=== PATIENT | female | born 1935 | race Caucasian/White ===

== ENCOUNTER → 2016-11-17 | Outpatient (CLI) | payer MEDICARE, OTHER ==
[2016-11-17 16:36] LABS: HEMATOCRIT 33.7 % (36.0-47.0); HEMOGLOBIN 10.9 g/dL (12.0-15.5); MEAN CORPUSCULAR HEMOGLOBIN 30.6 pg (27.0-33.4); MEAN CORPUSCULAR HGB CONC 32.4 g/dL (32.0-36.0); MEAN CORPUSCULAR VOLUME 94 fl (80-97); RED BLOOD COUNT 3.57 10^6/uL (3.72-5.28); RED CELL DISTRIBUTION WIDTH 18.8 % (11.5-14.0)
[2016-11-17 16:45] LABS: APPEARANCE,URINE CLEAR; BILIRUBIN,URINE NEGATIVE (NEGATIVE); GLUCOSE, URINE NEGATIVE (NEGATIVE); KETONES,URINE NEGATIVE (NEGATIVE); LEUKOCYTE ESTERASE,URINE SMALL (NEGATIVE); NITRITE,URINE NEGATIVE (NEGATIVE); PROTEIN,URINE NEGATIVE (NEGATIVE); URINE SPECIFIC GRAVITY 1.008; UROBILINOGEN,URINE NEGATIVE mg/dL (<2.0)
[2016-11-17 17:02] LABS: ALANINE AMINOTRANSFERASE 25 U/L (9-52); ALBUMIN 3.6 g/dL (3.5-5.0); ALKALINE PHOSPHATASE 118 U/L (38-126); ANION GAP 12 (5-19); ASPARTATE AMINO TRANSFERASE 22 U/L (14-36); BILIRUBIN,DIRECT 0.3 mg/dL (0.0-0.4); BILIRUBIN,TOTAL 0.3 mg/dL (0.2-1.3); BLOOD UREA NITROGEN 17 mg/dL (7-20); CALCIUM 9.9 mg/dL (8.4-10.2); CARBON DIOXIDE 19 mmol/L (22-30); CHLORIDE 108 mmol/L (98-107); CREATININE RESULT 1.81 mg/dL (0.52-1.25); GLUCOSE 127 mg/dL (75-110); POTASSIUM 4.5 mmol/L (3.6-5.0); SODIUM 138.9 mmol/L (137-145); TOTAL PROTEIN 7.2 g/dL (6.3-8.2)
== END ==
LOC: OD 14:52
PROVIDERS: ATTEND Internal Medicine Nephrology
DX: I12.9 Hypertensive chronic kidney disease with stage 1 through stage 4 chronic kidney disease, or unspecified chronic kidney disease (principal); N18.3 Chronic kidney disease, stage 3 (moderate); D64.9 Anemia, unspecified; R80.9 Proteinuria, unspecified
CPT/HCPCS: 36415; 80053; 81001; 85027

== ENCOUNTER → 2017-01-26 | Outpatient (CLI) | payer MEDICARE, OTHER ==
[2017-01-26 13:13] LABS: HEMATOCRIT 36.2 % (36.0-47.0); HEMOGLOBIN 11.8 g/dL (12.0-15.5); HGB HCT DIFFERENCE -0.8; MEAN CORPUSCULAR HEMOGLOBIN 30.8 pg (27.0-33.4); MEAN CORPUSCULAR HGB CONC 32.6 g/dL (32.0-36.0); MEAN CORPUSCULAR VOLUME 95 fl (80-97); RED BLOOD COUNT 3.82 10^6/uL (3.72-5.28); RED CELL DISTRIBUTION WIDTH 17.4 % (11.5-14.0); WHITE BLOOD COUNT 7.2 10^3/uL (4.0-10.5)
[2017-01-26 13:37] LABS: ANION GAP 12 (5-19); BLOOD UREA NITROGEN 23 mg/dL (7-20); CALCIUM 9.8 mg/dL (8.4-10.2); CARBON DIOXIDE 21 mmol/L (22-30); CHLORIDE 101 mmol/L (98-107); CREATININE RESULT 1.72 mg/dL (0.52-1.25); GLUCOSE 91 mg/dL (75-110); PHOSPHORUS 3.8 mg/dL (2.5-4.5); POTASSIUM 4.6 mmol/L (3.6-5.0)
== END ==
LOC: OD 11:59
PROVIDERS: ATTEND Internal Medicine Nephrology
DX: I12.9 Hypertensive chronic kidney disease with stage 1 through stage 4 chronic kidney disease, or unspecified chronic kidney disease (principal); N18.3 Chronic kidney disease, stage 3 (moderate); R80.9 Proteinuria, unspecified; D64.9 Anemia, unspecified
CPT/HCPCS: 36415; 80048; 83970; 84100; 85027

== ENCOUNTER → 2017-02-23 | Outpatient (CLI) | payer MEDICARE, OTHER ==
[2017-02-23 11:25] LABS: ANION GAP 9 (5-19); BLOOD UREA NITROGEN 14 mg/dL (7-20); CALCIUM 10.2 mg/dL (8.4-10.2); CARBON DIOXIDE 23 mmol/L (22-30); CHLORIDE 100 mmol/L (98-107); CREATININE RESULT 1.59 mg/dL (0.52-1.25); GLUCOSE 128 mg/dL (75-110); PHOSPHORUS 3.8 mg/dL (2.5-4.5); POTASSIUM 4.8 mmol/L (3.6-5.0); SODIUM 131.7 mmol/L (137-145)
[2017-02-24 11:23] LABS: HEMATOCRIT 32.5 % (36.0-47.0); HEMOGLOBIN 10.7 g/dL (12.0-15.5); HGB HCT DIFFERENCE -0.4; MEAN CORPUSCULAR HEMOGLOBIN 30.1 pg (27.0-33.4); RED BLOOD COUNT 3.56 10^6/uL (3.72-5.28); RED CELL DISTRIBUTION WIDTH 18.2 % (11.5-14.0); WHITE BLOOD COUNT 7.3 10^3/uL (4.0-10.5)
[2017-02-24 11:29] LABS: MEAN CORPUSCULAR VOLUME 91 fl (80-97)
== END ==
LOC: OD 09:54
PROVIDERS: ATTEND Internal Medicine Nephrology
DX: I12.9 Hypertensive chronic kidney disease with stage 1 through stage 4 chronic kidney disease, or unspecified chronic kidney disease (principal); N18.3 Chronic kidney disease, stage 3 (moderate); R80.9 Proteinuria, unspecified; E87.5 Hyperkalemia
CPT/HCPCS: 36415; 80048; 83970; 84100; 85027

== ENCOUNTER → 2017-03-02 | Outpatient (CLI) | payer MEDICARE, OTHER ==
[2017-03-02 16:08] LABS: ANION GAP 13 (5-19); BLOOD UREA NITROGEN 19 mg/dL (7-20); CALCIUM 11.2 mg/dL (8.4-10.2); CARBON DIOXIDE 22 mmol/L (22-30); CHLORIDE 100 mmol/L (98-107); CREATININE RESULT 1.97 mg/dL (0.52-1.25); GLUCOSE 97 mg/dL (75-110); SODIUM 134.8 mmol/L (137-145)
== END ==
LOC: OD 14:35
PROVIDERS: ATTEND Internal Medicine Nephrology
DX: E87.0 Hyperosmolality and hypernatremia (principal)
CPT/HCPCS: 36415; 80048

== ENCOUNTER → 2017-03-27 | Outpatient (CLI) | payer MEDICARE, OTHER ==
[2017-03-27 13:45] LABS: HEMATOCRIT 33.1 % (36.0-47.0); HGB HCT DIFFERENCE -0.1; MEAN CORPUSCULAR HEMOGLOBIN 30.5 pg (27.0-33.4); MEAN CORPUSCULAR HGB CONC 33.2 g/dL (32.0-36.0); MEAN CORPUSCULAR VOLUME 92 fl (80-97); RED CELL DISTRIBUTION WIDTH 19.3 % (11.5-14.0); WHITE BLOOD COUNT 8.2 10^3/uL (4.0-10.5)
[2017-03-27 14:16] LABS: ANION GAP 8 (5-19); BLOOD UREA NITROGEN 13 mg/dL (7-20); CALCIUM 10.2 mg/dL (8.4-10.2); CARBON DIOXIDE 25 mmol/L (22-30); CHLORIDE 107 mmol/L (98-107); CREATININE RESULT 1.71 mg/dL (0.52-1.25); GLUCOSE 97 mg/dL (75-110); PHOSPHORUS 3.8 mg/dL (2.5-4.5); POTASSIUM 4.7 mmol/L (3.6-5.0); SODIUM 139.7 mmol/L (137-145)
== END ==
LOC: OD 11:58
PROVIDERS: ATTEND Internal Medicine Nephrology
DX: N18.3 Chronic kidney disease, stage 3 (moderate) (principal); D64.9 Anemia, unspecified; E87.5 Hyperkalemia
CPT/HCPCS: 36415; 80048; 83970; 84100; 84443; 85027

== ENCOUNTER → 2017-07-03 | Outpatient (CLI) | payer MEDICARE, OTHER ==
[2017-07-03 13:15] LABS: HEMATOCRIT 35.3 % (36.0-47.0); HEMOGLOBIN 11.5 g/dL (12.0-15.5); MEAN CORPUSCULAR HEMOGLOBIN 30.6 pg (27.0-33.4); MEAN CORPUSCULAR HGB CONC 32.5 g/dL (32.0-36.0); MEAN CORPUSCULAR VOLUME 94 fl (80-97); PLATELET COUNT 255 10^3/uL (150-450); RED BLOOD COUNT 3.75 10^6/uL (3.72-5.28); RED CELL DISTRIBUTION WIDTH 15.8 % (11.5-14.0); WHITE BLOOD COUNT 7.8 10^3/uL (4.0-10.5)
[2017-07-03 13:40] LABS: ANION GAP 9 (5-19); BLOOD UREA NITROGEN 14 mg/dL (7-20); CALCIUM 10.7 mg/dL (8.4-10.2); CARBON DIOXIDE 23 mmol/L (22-30); CHLORIDE 108 mmol/L (98-107); GLUCOSE 86 mg/dL (75-110); PHOSPHORUS 3.7 mg/dL (2.5-4.5); POTASSIUM 4.8 mmol/L (3.6-5.0); SODIUM 140.2 mmol/L (137-145)
== END ==
LOC: OD 12:43
PROVIDERS: ATTEND Internal Medicine Nephrology
DX: I12.9 Hypertensive chronic kidney disease with stage 1 through stage 4 chronic kidney disease, or unspecified chronic kidney disease (principal); N18.3 Chronic kidney disease, stage 3 (moderate); D64.9 Anemia, unspecified; E87.5 Hyperkalemia
CPT/HCPCS: 36415; 80048; 83970; 84100; 85027

== ENCOUNTER 2017-08-30 12:07 | Emergency (ER) | payer MEDICARE, OTHER ==
[2017-08-30] MEDS ORDERED: NORMAL SALINE 1000 ML 1,000 ML IV ONE (12:22)
[2017-08-30] MEDS ORDERED: NORMAL SALINE 250 ML IV PRN ×3 (12:23→14:21)
[2017-08-30] MEDS ORDERED: OCTREOTIDE ACETATE INJ/PF 100 MCG/1 ML SDV IV ONE ×2 (12:23→16:15)
[2017-08-30] MEDS ORDERED: PANTOPRAZOLE SODIUM 40 MG VIAL IV ONE ×2 (12:23→16:15)
[2017-08-30] MEDS ORDERED: ONDANSETRON HCL INJ/PF 4 MG/2 ML SDV IV ONE (12:29)
[2017-08-30 12:42] LABS: ABSOLUTE LYMPHOCYTES (AUTO) 0.7 10^3/uL (0.5-4.7); ABSOLUTE NEUT (AUTO) 0.1 10^3/uL (1.7-8.2); EOSINOPHILS % (AUTO) 1.5 % (0-6); HEMATOCRIT 18.4 % (36.0-47.0); LYMPHOCYTES % (AUTO) 90.2 % (13-45); MEAN CORPUSCULAR HEMOGLOBIN 31.8 pg (27.0-33.4); MEAN CORPUSCULAR HGB CONC 33.6 g/dL (32.0-36.0); MEAN CORPUSCULAR VOLUME 95 fl (80-97); MONOCYTES % (AUTO) 0.2 % (3-13); RED BLOOD COUNT 1.95 10^6/uL (3.72-5.28); RED CELL DISTRIBUTION WIDTH 15.4 % (11.5-14.0); SEGMENTED NEUTROPHILS % (AUTO) 8.1 % (42-78); TOTAL CELLS COUNTED % (AUTO) 100 %
[2017-08-30 12:44] LABS: INTERNATIONAL RATION (INR) 1.17; PROTHROMBIN TIME 15.7 SEC (11.4-15.4)
[2017-08-30 12:45] LABS: PARTIAL THROMBOPLASTIN TIME 36.4 SEC (23.5-35.8)
[2017-08-30 12:50] LABS: HEMOGLOBIN 6.2 g/dL (12.0-15.5)
[2017-08-30] MEDS ORDERED: LIDOCAINE 2% INJ (20 MG/ML) 20 ML MDV INJ ONE (12:53)
[2017-08-30 12:56] LABS: ALANINE AMINOTRANSFERASE 68 U/L (9-52); ALBUMIN 2.6 g/dL (3.5-5.0); ALKALINE PHOSPHATASE 54 U/L (38-126); ANION GAP 15 (5-19); ASPARTATE AMINO TRANSFERASE 65 U/L (14-36); BILIRUBIN,DIRECT 0.1 mg/dL (0.0-0.4); BILIRUBIN,TOTAL 0.2 mg/dL (0.2-1.3); BLOOD UREA NITROGEN 50 mg/dL (7-20); CALCIUM 8.9 mg/dL (8.4-10.2); CARBON DIOXIDE 13 mmol/L (22-30); CHLORIDE 105 mmol/L (98-107); GLUCOSE 217 mg/dL (75-110); POTASSIUM 4.3 mmol/L (3.6-5.0); SODIUM 132.6 mmol/L (137-145); TOTAL PROTEIN 5.1 g/dL (6.3-8.2)
[2017-08-30 12:59] LABS: PLATELET COUNT < 3 10^3/uL (150-450)
--- NOTE | 2017-08-30 13:01 | RADIOLOGY REPORT (SQ) ---
EXAM DESCRIPTION: CHEST SINGLE VIEW COMPLETED DATE/TIME: 08/30/2017 12:49 pm REASON FOR STUDY: rectal bleeding, vomiting/coughing blood COMPARISON: 08/10/2014 EXAM PARAMETERS: NUMBER OF VIEWS: One view. TECHNIQUE: Single frontal radiographic view of the chest acquired. RADIATION DOSE: NA LIMITATIONS: None. FINDINGS: LUNGS AND PLEURA: Right middle lobe airspace disease. Lungs and pleural spaces otherwise grossly clear. MEDIASTINUM AND HILAR STRUCTURES: No masses. Contour normal. HEART AND VASCULAR STRUCTURES: Heart normal in size. Normal vasculature. BONES: No acute findings. HARDWARE: None in the chest. OTHER: No other significant finding. IMPRESSION: Right middle lobe airspace disease presumably representing pneumonia. Recommend followu p radiographs 4 to 6 weeks to ensure resolution. TECHNICAL DOCUMENTATION: JOB ID: [id number] [employer]- All Rights Reserved Reading location - IP/workstation name: [email or web address]
[2017-08-30 13:12] LABS: ANISOCYTOSIS SLIGHT; OVALOCYTES SLIGHT; PLATELET COMMENT DECREASED; POIKILOCYTOSIS SLIGHT
[2017-08-30 13:20] LABS: WHITE BLOOD COUNT 0.8 10^3/uL (4.0-10.5)
--- NOTE | 2017-08-30 13:50 | ER Document Report ---
ED GI Bleed / Rectal Pain - General Chief Complaint: Rectal Bleeding Stated Complaint: RECTAL BLEEDING Time Seen by Provider: 08/30/17 12:21 Mode of Arrival: Medic Information source: Patient Notes: Patient is an 82-year-old female who presented to the ER today for rectal bleeding, bright red/brown blood for 1 day. Patient started having dark blood come out of her mouth after coughing this morning. Patient has a history of a AAA and COPD, hypertension, open heart surgery in 2015. Most of patient's doctors are [facility], Including a vascular surgeon. Patient denies any abdominal pain. She states "I have had to have a blood transfusion in the past , but nobody could tell me why." TRAVEL OUTSIDE OF THE [place] IN LAST 30 DAYS: No - Related Data Allergies/Adverse Reactions: quinine [Quinine] Adverse Reaction (Verified 01/14/16 21:26) thyroid problems Past Medical History - General Information source: Patient - Social History Smoking Status: Unknown if Ever Smoked Family History: Reviewed & Not Pertinent - Past Medical History Cardiac Medical History: Reports: Hx Congestive Heart Failure - Diastolic dysfunction, Hx Coronary Artery Disease, Hx Heart Attack, Hx Hypercholesterolemia, Hx Hypertension Pulmonary Medical History: Reports: Hx COPD Neurological Medical History: Denies: Hx Seizures Renal/ Medical History: Reports: Hx Renal Insufficiency Malignancy Medical History: Reports: Hx Breast Cancer, Hx Cervical Cancer, Hx Colorectal Cancer Musculoskeltal Medical History: Reports Hx Arthritis - Rheumatoid arthritis Psychiatric Medical History: Denies: Hx Depression Past Surgical History: Reports: Hx Appendectomy, Hx Bowel Surgery - Hemicolectomy, Hx Breast Surgery, Hx Cholecystectomy, Hx Coronary Artery Bypass Graft - x3, Hx Hysterectomy, Hx Lumpectomy, Hx Open Heart Surgery - triple bypass - Immunizations Hx Diphtheria, Pertussis, Tetanus Vaccination: No Hx Pneumococcal Vaccination: 03/13/14 Review of Systems - Review of Systems Constitutional: No symptoms reported EENT: No symptoms reported Cardiovascular: See HPI Respiratory: See HPI Gastrointestinal: See HPI Genitourinary: No symptoms reported Female Genitourinary: No symptoms reported Musculoskeletal: No symptoms reported Skin: No symptoms reported Hematologic/Lymphatic: No symptoms reported Neurological/Psychological: No symptoms reported Physical Exam - Vital signs Vitals: Resp 22 H 08/30/17 12:19 - Notes Notes: PHYSICAL EXAMINATION: GENERAL: Pale, tired appearing, but alert and in no acute distress. HEAD: Atraumatic, normocephalic. EYES: Pupils equal round and reactive to light, extraocular movements intact, sclera anicteric, conjunctiva are normal. ENT: ear canals without erythema or foreign body, TMs pearly correa with good bony landmarks, nares patent, oropharynx clear without exudates. Moist mucous membranes. Dark, dried blood in and around mouth NECK: Normal range of motion, supple without lymphadenopathy LUNGS:rhonchi that clears with cough in lower lobes bilaterally HEART: Regular rate and rhythm without murmurs ABDOMEN: Soft, no tenderness. No guarding, no rebound BACK: no vertebral tenderness, normal ROM GI/: no CVA tenderness Rectal: bright red/some brown blood per rectum EXTREMITIES: Normal range of motion, no pitting edema. No cyanosis. NEUROLOGICAL: alert and oriented to person, place and time, Cranial nerves grossly intact. Normal sensory/motor exams. PSYCH: Normal mood, normal affect. SKIN: Warm, Dry, normal turgor, no rashes or lesions noted Course - Re-evaluation Re-evalutation: 08/30/17 14:53 Patient has hemoglobin of 6.2, white blood cell count of 0.8, platelet 2, hematocrit of 18.4, chest x-ray reveals a left lower lobe pneumonia. CAT scan reveals that her AAA has enlarged in size and has some stranding around it concerning for possible impending rupture. Patient has not no episodes of vomiting or coughing up blood here in the ER so far. Patient has gotten octreotide, Protonix, IV fluids, is getting blood currently, fresh frozen plasma and 1 unit of platelets that we have in the hospital. Dr. Soliman, and patient's vascular surgeon at [facility] called me at this time and states that he will be happy to consult, it does not sound like she has a ruptured AAA at this time, but likely head athletic trainer/strength coach needs to admit patient to [facility]. I am awaiting head athletic trainer/strength coach call. 08/30/17 15:15 Dr. Hester, head athletic trainer/strength coach at [facility] accepts transfer at this time. 08/30/17 15:20 08/30/17 16:34 Transport here to get patient, she has no complaints at this time, still tachycardic at 115 bpm, blood pressure 148/78. - Vital Signs Vital signs: Temp Pulse Resp BP Pulse Ox 101.6 F H 111 H 23 H 154/64 H 100 08/30/17 13:23 08/30/17 13:23 08/30/17 15:16 08/30/17 15:16 08/30/17 15:16 - Laboratory Result Diagrams: 08/30/17 12:27 08/30/17 12:27 Laboratory results interpreted by me: 08/30/17 08/30/17 08/30/17 12:27 12:27 12:27 WBC 0.8 L* RBC 1.95 L Hgb 6.2 L Hct 18.4 L RDW 15.4 H Plt Count < 3 L* Seg Neutrophils % 8.1 L Lymphocytes % 90.2 H Monocytes % 0.2 L Absolute Neutrophils 0.1 L Absolute Monocytes 0.0 L PT 15.7 H APTT 36.4 H Sodium 132.6 L Carbon Dioxide 13 L BUN 50 H Creatinine 2.01 H Est GFR ( Amer) 29 L Est GFR (Non-Af Amer) 24 L Glucose 217 H AST 65 H ALT 68 H Total Protein 5.1 L Albumin 2.6 L Crossmatch 08/30/17 12:27 WBC RBC Hgb Hct RDW Plt Count Seg Neutrophils % Lymphocytes % Monocytes % Absolute Neutrophils Absolute Monocytes PT APTT Sodium Carbon Dioxide BUN Creatinine Est GFR ( Amer) Est GFR (Non-Af Amer) Glucose AST ALT Total Protein Albumin Crossmatch See Detail Procedures - Central Line Left Femoral Time completed: 13:40 Consent obtained: Yes Central line pre-insertion: Sterile PPE donned, Chloraprep applied, Sterile drapes applied Central line size (Fr.): 20 Central line lumen type: Triple Anesthetic type: 1% Lidocaine mL's of anesthesia: 10 Ultrasound guided: No CM at insertion site: 22 Line secured with sutures: Yes Central line post-insertion: Blood return from lumens, Biopatch applied, Sutured , Sterile dressing applied Number of attempts: 1 Complications: No Notes: 08/30/17 13:50 Dr. Damian lead central line placement in sterile procedure Critical Care Note - Critical Care Note Total time excluding time spent on procedures (mins): 45 - 45 minutes spent in critical care time with patient, consulted with attending, speaking with family , placing orders and evaluating tests and labs. Discharge - Discharge Clinical Impression: AAA (abdominal aortic aneurysm) without rupture GI bleed Qualifiers: GI bleed type/associated pathology: unspecified gastrointestinal hemorrhage type Qualified Code(s): K92.2 - Gastrointestinal hemorrhage, unspecified Pneumonia Qualifiers: Pneumonia type: due to unspecified organism Laterality: unspecified laterality Lung location: unspecified part of lung Qualified Code(s): J18.9 - Pneumonia, unspecified organism Condition: Stable Disposition: [facility]
--- NOTE | 2017-08-30 14:23 | RADIOLOGY REPORT (SQ) ---
EXAM DESCRIPTION: CT ABD/PELVIS NO ORAL OR IV COMPLETED DATE/TIME: 08/30/2017 2:12 pm REASON FOR STUDY: rectal bleeding, vomiting/coughing blood COMPARISON: 01/14/2016 TECHNIQUE: CT scan of the abdomen and pelvis performed without intravenous or oral contrast. Images reviewed with lung, soft tissue, and bone windows. Reconstructed coronal and sagittal MPR images revi ewed. All images stored on PACS. All CT scanners at this facility use dose modulation, iterative reconstruction, and/or weight based d osing when appropriate to reduce radiation dose to as low as reasonably achievable (ALARA). [facility]: Dose Right [facility]: CareDose [facility]: Dose Right [facility]: Teradose 4D [facility]: Smart Technologies RADIATION DOSE: CT Rad equipment meets quality standard of care and radiation dose reduction techniq ues were employed. CTDIvol: 6.8 mGy. DLP: 339 mGy-cm.mGy. LIMITATIONS: None. FINDINGS: LOWER CHEST: Stable nodules within the right lower lobe without definite new or enlarging pulmonary nodules. NON-CONTRASTED LIVER, SPLEEN, ADRENALS: Evaluation limited by lack of IV contrast. No identified sign ificant masses. PANCREAS: No masses. No peripancreatic inflammatory changes. GALLBLADDER: No identified stones by CT criteria. No inflammatory changes to suggest cholecystitis. RIGHT KIDNEY AND URETER: Stable degree of atrophy. No suspicious masses. Assessment limited by lack of IV contrast. No significant calcifications. No hydronephrosis or hydroureter. LEFT KIDNEY AND URETER: Stable degree of atrophy. No suspicious masses. Assessment limited by lack o f IV contrast. No significant calcifications. No hydronephrosis or hydroureter. AORTA AND RETROPERITONEUM: Interval enlargement of infrarenal abdominal aortic aneurysm measuring 4.3 x 4.7 cm where previously measured approximately 3.9 by 4.2 cm. There is mild surrounding stranding raising concern for impending rupture. BOWEL AND PERITONEAL CAVITY: No obvious masses or inflammatory changes. No free fluid. APPENDIX: Normal. PELVIS, BLADDER, AND ABDOMINAL WALL:No abnormal masses. No free fluid. Bladder normal. BONES: Stable degenerative change without fracture or suspicious osseous lesion. OTHER: No other significant finding. IMPRESSION: INTERVAL ENLARGEMENT OF INFRARENAL ABDOMINAL AORTIC ANEURYSM MEASURING UP TO 4.7 CM WITH MILD SURROUNDING STRANDING RAISING SUSPICION IMPENDING RUPTURE. VASCULAR SURGICAL CONSULTATION IS R ECOMMENDED. ADDITIONAL CHRONIC CHANGES ABOVE. COMMENT: RESULTS WERE COMMUNICATED TO PROVIDER HARPAL AT 1417 HOURS ON 08/30/2017. Quality ID # [id number]: Final reports with documentation of one or more dose reduction techniques (e.g., Au tomated exposure control, adjustment of the mA and/or kV according to patient size, use of iterative reconstruction technique) TECHNICAL DOCUMENTATION: JOB ID: [id number] [id number]- All Rights Reserved Reading location - IP/workstation name: [email or web address]
[2017-08-30] MEDS ORDERED: LIDOCAINE 1% INJ-PF (10 MG/ML) 30 ML SDV INJ ONE (14:27)
[2017-08-30] MEDS ORDERED: CEFTRIAXONE INJ 1000 MG VIAL IV ONE (14:27)
[2017-08-30 16:37] VITALS: BP 148/75
== END 2017-08-30 16:58 | disposition short-term general hospital (02) ==
LOC: ER 12:07
PROC: 06HN33Z Insertion of Infusion Device into Left Femoral Vein, Percutaneous Approach (ICD-10-PCS; principal; 2017-08-30)
DX: J18.9 Pneumonia, unspecified organism (principal); K92.2 Gastrointestinal hemorrhage, unspecified; I71.4 Abdominal aortic aneurysm, without rupture; J44.9 Chronic obstructive pulmonary disease, unspecified; I10 Essential (primary) hypertension
CPT/HCPCS: 99291; 96375; 96365; 86900; 86901; 36415; 36430; 86850; 85025; 85610; 85730; 80053; 86920; 71045; 74176; 36556; C1751; P9016; P9035; J3490; C9113; J0696; J7050; S0164

== ENCOUNTER 2017-10-07 19:24 | Emergency (ER) | payer MEDICARE, OTHER ==
--- NOTE | 2017-10-07 19:59 | ER Document Report ---
ED General - General Stated Complaint: HEAD INJURY /FALL Time Seen by Provider: 10/07/17 19:52 Notes: Patient is an 82-year-old female that comes from home for chief complaint of fall and head injury. She states she thinks she passed out and fell and hit her head. She states she took Benadryl for itching prior to passing out. She states she has a headache, she has pain over her left hand, she denies focal numbness or weakness, cough, she states she was feeling fine earlier today including no fever, nausea vomiting, chest pain, abdominal pain. She denies back pain. She is on a blood thinner but she cannot tell me which one. She states she is up-to-date on her tetanus. Past medical history includes hypertension, hyperlipidemia, chronic kidney disease, thrombocytopenia, she states she got out of [place] a few days ago after she had had MRIs and bone marrow biopsy. TRAVEL OUTSIDE OF THE [place] IN LAST 30 DAYS: No - Related Data Allergies/Adverse Reactions: quinine [Quinine] Adverse Reaction (Verified 01/14/16 21:26) thyroid problems Past Medical History - General Information source: Patient, Emergency Med Personnel - Social History Smoking Status: Never Smoker Frequency of alcohol use: Occasional Family History: Reviewed & Not Pertinent - Past Medical History Cardiac Medical History: Reports: Hx Congestive Heart Failure - Diastolic dysfunction, Hx Coronary Artery Disease, Hx Heart Attack, Hx Hypercholesterolemia, Hx Hypertension Pulmonary Medical History: Reports: Hx COPD Neurological Medical History: Denies: Hx Seizures Renal/ Medical History: Reports: Hx Renal Insufficiency. Denies: Hx Peritoneal Dialysis Malignancy Medical History: Reports: Hx Breast Cancer, Hx Cervical Cancer, Hx Colorectal Cancer Musculoskeltal Medical History: Reports Hx Arthritis - Rheumatoid arthritis Psychiatric Medical History: Denies: Hx Depression Past Surgical History: Reports: Hx Appendectomy, Hx Bowel Surgery - Hemicolectomy, Hx Breast Surgery, Hx Cholecystectomy, Hx Coronary Artery Bypass Graft - x3, Hx Hysterectomy, Hx Lumpectomy, Hx Open Heart Surgery - triple bypass - Immunizations Hx Diphtheria, Pertussis, Tetanus Vaccination: No Hx Pneumococcal Vaccination: 03/13/14 Review of Systems - Review of Systems Constitutional: No symptoms reported EENT: No symptoms reported Cardiovascular: No symptoms reported Respiratory: No symptoms reported Gastrointestinal: No symptoms reported Genitourinary: No symptoms reported Female Genitourinary: No symptoms reported Musculoskeletal: See HPI Skin: See HPI Hematologic/Lymphatic: No symptoms reported Neurological/Psychological: See HPI Physical Exam - Vital signs Vitals: Temp Pulse Resp BP Pulse Ox 94.1 F L 67 20 161/73 H 99 10/07/17 19:25 10/07/17 19:25 10/07/17 19:25 10/07/17 19:25 10/07/17 19:25 Interpretation: Normal - General General appearance: Other - Patient speaks quietly but she is alert, oriented, she is slightly sluggish In distress: None - HEENT Head: No: Atraumatic - Multiple tender areas of the scalp, small superficial laceration about 2.5 cm in length just above the right eyebrow, ecchymosis around the right orbit with slight swelling of the eyelids Eyes: Normal Extraocular movements intact: Yes Eyelashes: Normal Pupils: PERRL Mouth/Lips: Normal Mucous membranes: Normal Pharynx: Normal Neck: Normal - Respiratory Respiratory status: No respiratory distress Chest status: Nontender. No: Tender Breath sounds: Normal. No: Decreased air movement, Wheezing Chest palpation: Normal - Cardiovascular Rhythm: Regular. No: Tachycardia Heart sounds: Normal auscultation, S1 appreciated, S2 appreciated Murmur: No Normal capillary refill: Yes - Abdominal Inspection: Normal Distension: No distension Bowel sounds: Normal Tenderness: Nontender. No: Tender, Guarding Organomegaly: No organomegaly - Back Back: Normal, Nontender - Extremities General upper extremity: Other - Skin abrasion between the webbing of the left thumb and right second digit, pain and swelling at the thenar area, sensation and capillary refill intact, hand exam otherwise unremarkable, wrist and forearm exam otherwise unremarkable. General lower extremity: Normal inspection, Nontender, Normal color, Normal ROM , Normal temperature, Normal weight bearing. No: Storm's sign - Neurological Neuro grossly intact: Yes Cognition: Normal. No: Confused, Inattentive Orientation: AAOx4, Disoriented to events - Patient cannot recall details of her fall and syncope. No: Disoriented to person, Disoriented to place, Disoriented to time Ayaan Coma Scale Eye Opening: Spontaneous [place] Coma Scale Verbal: Oriented [place] Coma Scale Motor: Obeys Commands [place] Coma Scale Total: 15 Speech: Normal Cranial nerves: Normal Cerebellar coordination: Normal Motor strength normal: LUE, RUE, LLE, RLE Additional motor exam normals: Equal in home aide Sensory: Normal - Psychological Associated symptoms: Normal affect, Normal mood - Skin Skin Temperature: Warm Skin Moisture: Dry Skin Color: Normal Course - Re-evaluation Re-evalutation: Patient is oriented to person, place, events, she cooperates with a normal neurological exam except she is sluggish and complaining of a headache. Blood pressure stable. She is hypothermic, beginning warming blankets and bear hugger , will send to CAT scan. 10/07/17 20:25 Radiologist called, reports patient is a small epidural hemorrhage on the right side, larger subarachnoid hemorrhage, no midline shift, she also has multiple skull fractures, right orbit fracture, right zygomatic fracture. Discussed with Dr. Varela. He does not recommend any epileptic prevention treatment. 10/07/17 20:30 Spoke to family, they request [facility] transfer for trauma/neurosurgery service. They state patient does not take a blood thinner anymore but she does have thrombocytopenia. Patient also reported to have drank wine with them earlier. On examination patient has a GCS of 15 still. 10/07/17 20:[address] Cabrera, trauma services at [facility], patient will be accepted for transfer. 10/07/17 21:03 Pending air transport, patient reevaluated again at bedside, patient still has a GCS of 15. Patient also has a comminuted fracture of the proximal phalanx at the right thumb with some displacement. Wrist exam otherwise unremarkable. Placing temporary splint, skin tear over the area dressed beforehand. Facial wound cleaned and dressed closed with Steri-Strips. Updated family, they state they will be meeting patient at [facility]. 10/07/17 21:29 Flight team to bedside, report given, patient still alert and oriented, still hypothermic, vital signs unchanged, stable for transport. - Vital Signs Vital signs: Temp Pulse Resp BP Pulse Ox 93.9 F L 67 20 160/69 H 99 10/07/17 21:01 10/07/17 19:25 10/07/17 21:01 10/07/17 21:01 10/07/17 21:01 - Laboratory Result Diagrams: 10/07/17 20:30 10/07/17 20:30 Laboratory results interpreted by me: 10/07/17 10/07/17 10/07/17 20:30 20:30 20:30 WBC 11.0 H RBC 3.02 L Hgb 9.8 L Hct 29.4 L RDW 21.6 H Monocytes % (Manual) 19 H Abs Monocytes (Manual) 2.1 H Sodium 136.8 L Potassium 3.3 L Carbon Dioxide 19 L BUN 30 H Creatinine 1.48 H Est GFR ( Amer) 41 L Est GFR (Non-Af Amer) 34 L Lactic Acid 3.4 H AST 12 L Creatine Kinase 21 L Albumin 3.3 L Urine Nitrite Ur Leukocyte Esterase 10/07/17 20:41 WBC RBC Hgb Hct RDW Monocytes % (Manual) Abs Monocytes (Manual) Sodium Potassium Carbon Dioxide BUN Creatinine Est GFR ( Amer) Est GFR (Non-Af Amer) Lactic Acid AST Creatine Kinase Albumin Urine Nitrite POSITIVE H Ur Leukocyte Esterase SMALL H Procedures - Immobilization Left hand/wrist Pre-Proc Neuro Vasc Exam: Normal Immobilizer type: Thumb spica Performed by: Provider assisted, PCT Post-Proc Neuro Vasc Exam: Normal Alignment checked and good: Yes Discharge - Discharge Clinical Impression: Subarachnoid hemorrhage Fall Qualifiers: Encounter type: initial encounter Qualified Code(s): W19.XXXA - Unspecified fall, initial encounter Head injury Qualifiers: Encounter type: initial encounter Qualified Code(s): S09.90XA - Unspecified injury of head, initial encounter Epidural hemorrhage Qualifiers: Encounter type: initial encounter Loss of consciousness presence/duration: with LOC of 30 min or less Qualified Code(s): S06.4X1A - Epidural hemorrhage with loss of consciousness of 30 minutes or less, initial encounter Skull fractures Qualifiers: Encounter type: initial encounter Skull bone/location: unspecified skull bone Fracture type: closed Qualified Code(s): S02.91XA - Unspecified fracture of skull, initial encounter for closed fracture Facial laceration Qualifiers: Encounter type: initial encounter Qualified Code(s): S01.81XA - Laceration without foreign body of other part of head, initial encounter Fracture of phalanx of thumb Qualifiers: Encounter type: initial encounter Fracture type: closed Phalanx: proximal Fracture alignment: displaced Laterality: left Qualified Code(s): S62.512A - Displaced fracture of proximal phalanx of left thumb, initial encounter for closed fracture Condition: Serious Disposition: [facility] Referrals: DINORA PALMER MD [Primary Care Provider] - Follow up as needed
--- NOTE | 2017-10-07 20:31 | RADIOLOGY REPORT (SQ) ---
EXAM DESCRIPTION: CT HEAD WITHOUT COMPLETED DATE/TIME: 10/07/2017 8:17 pm REASON FOR STUDY: fall COMPARISON: None. TECHNIQUE: Axial images acquired through the brain without intravenous contrast. Images reviewed wi th bone, brain and subdural windows. Additional sagittal and coronal reconstructions were generated. Images stored on PACS. All CT scanners at this facility use dose modulation, iterative reconstruction, and/or weight based d osing when appropriate to reduce radiation dose to as low as reasonably achievable (ALARA). [facility]: Dose Right [facility]: CareDose [facility]: Dose Right [facility]: Teradose 4D [facility]: [employer] RADIATION DOSE: CT Rad equipment meets quality standard of care and radiation dose reduction techniq ues were employed. CTDIvol: 53.2 mGy. DLP: 937 mGy-cm. mGy. LIMITATIONS: None. FINDINGS: There is intracranial hemorrhage in the right middle cranial fossa with subarachnoid and p ossibly small epidural components. No midline shift. Numerous fractures are present in the supraorb ital portion of the right frontal bone extending into the frontal sinus. There is also fracture line along the inferior-anterior right temporal bone extending to the region of the lateral orbit. The r ight orbit shows multiple fractures in the inferior posterior and superior roque. Right zygomatic ar ch fracture is also present. OTHER: No other significant finding. IMPRESSION: There is intracranial hemorrhage in the right middle cranial fossa with subarachnoid and possibly small epidural components. No midline shift. Numerous fractures are present in the supraor bital portion of the right frontal bone extending into the frontal sinus. There is also fracture line along the inferior-anterior right temporal bone extending to the region of the lateral orbit. The r ight orbit shows multiple fractures in the inferior posterior and superior roque. Right zygomatic ar ch fracture is also present. EVIDENCE OF ACUTE STROKE: No COMMENT: These results were called to Dr. Nagy in the emergency room at 2025 hours. Results were confirmed and read back. Quality ID # [id number]: Final reports with documentation of one or more dose reduction techniques (e.g., Au tomated exposure control, adjustment of the mA and/or kV according to patient size, use of iterative reconstruction technique) TECHNICAL DOCUMENTATION: JOB ID: [id number]-72 2010 [employer]- All Rights Reserved Reading location - IP/workstation name: [facility]
--- NOTE | 2017-10-07 20:34 | RADIOLOGY REPORT (SQ) ---
EXAM DESCRIPTION: CT CERVICAL SPINE WITHOUT COMPLETED DATE/TIME: 10/07/2017 8:17 pm REASON FOR STUDY: fall COMPARISON: None. TECHNIQUE: Axial images acquired through the cervical spine without intravenous contrast. Images re viewed with lung, soft tissue and bone windows. Reconstructed coronal and sagittal MPR images review ed. Images stored on PACS. All CT scanners at this facility use dose modulation, iterative reconstruction, and/or weight based d osing when appropriate to reduce radiation dose to as low as reasonably achievable (ALARA). [facility]: Dose Right [facility]: CareDose [facility]: Dose Right [facility]: Teradose 4D [facility]: [employer] RADIATION DOSE: CT Rad equipment meets quality standard of care and radiation dose reduction techniq ues were employed. CTDIvol: 17.7 mGy. DLP: 379 mGy-cm. mGy. LIMITATIONS: None. FINDINGS: ALIGNMENT: Anatomic. MINERALIZATION: Normal. VERTEBRAL BODIES: No fractures or dislocation. DISCS: Multilevel disc space narrowing with osteophytes. FACETS, LATERAL MASSES, POSTERIOR ELEMENTS: Facet arthropathy. No fractures. No dislocation. No ac [place] findings. HARDWARE: None in the spine. VISUALIZED RIBS: No fractures. LUNG APICES AND SOFT TISSUES: No significant or acute findings. OTHER: No other significant finding. IMPRESSION: No cervical spine fracture identified. TECHNICAL DOCUMENTATION: JOB ID: [id number] Quality ID # [id number]: Final reports with documentation of one or more dose reduction techniques (e.g., Au tomated exposure control, adjustment of the mA and/or kV according to patient size, use of iterative reconstruction technique) 2010 [employer]- All Rights Reserved Reading location - IP/workstation name: [employer]
--- NOTE | 2017-10-07 20:46 | RADIOLOGY REPORT (SQ) ---
EXAM DESCRIPTION: HAND LEFT 3 VIEWS COMPLETED DATE/TIME: 10/07/2017 8:23 pm REASON FOR STUDY: fall COMPARISON: None. EXAM PARAMETERS: NUMBER OF VIEWS: Three views. TECHNIQUE: AP, lateral and oblique radiographic images acquired of the left hand. LIMITATIONS: None. FINDINGS: Comminuted intra-articular minimally displaced fracture of the proximal phalanx of the lef t thumb. No other fracture identified. OTHER: No other significant finding. IMPRESSION: Comminuted intra-articular minimally displaced fracture of the proximal phalanx of the l eft thumb. No other fracture identified. TECHNICAL DOCUMENTATION: JOB ID: [id number] 2010 [employer]- All Rights Reserved Reading location - IP/workstation name: [email or web address]
[2017-10-07 20:52] LABS: HEMATOCRIT 29.4 % (36.0-47.0); HEMOGLOBIN 9.8 g/dL (12.0-15.5); MEAN CORPUSCULAR HEMOGLOBIN 32.6 pg (27.0-33.4); MEAN CORPUSCULAR HGB CONC 33.4 g/dL (32.0-36.0); MEAN CORPUSCULAR VOLUME 97 fl (80-97); PLATELET COUNT 228 10^3/uL (150-450); RED BLOOD COUNT 3.02 10^6/uL (3.72-5.28); RED CELL DISTRIBUTION WIDTH 21.6 % (11.5-14.0)
[2017-10-07 20:55] LABS: PROTHROMBIN TIME 13.9 SEC (11.4-15.4)
--- NOTE | 2017-10-07 20:57 | RADIOLOGY REPORT (SQ) ---
EXAM DESCRIPTION: CHEST SINGLE VIEW COMPLETED DATE/TIME: 10/07/2017 8:23 pm REASON FOR STUDY: hypothermia, syncope COMPARISON: 08/10/2014 NUMBER OF VIEWS: One view. TECHNIQUE: Single frontal radiographic view of the chest acquired. LIMITATIONS: None. FINDINGS: LUNGS AND PLEURA: Small confluent -nodular opacity over the right lung base. No pleural e ffusion or pneumothorax. MEDIASTINUM AND HILAR STRUCTURES: Stable. HEART AND VASCULAR STRUCTURES: Heart normal in size. Normal vasculature. Prior CABG. BONES: No acute findings. HARDWARE: CABG hardware. OTHER: No other significant finding. IMPRESSION: Small confluent -nodular opacity over the right lung base. No pleural effusion or pneum othorax. TECHNICAL DOCUMENTATION: JOB ID: [id number] 2010 [employer]- All Rights Reserved Reading location - IP/workstation name: [email or web address]
[2017-10-07 21:08] LABS: ALANINE AMINOTRANSFERASE 22 U/L (9-52); ALBUMIN 3.3 g/dL (3.5-5.0); ALKALINE PHOSPHATASE 65 U/L (38-126); ANION GAP 12 (5-19); ASPARTATE AMINO TRANSFERASE 12 U/L (14-36); BILIRUBIN,DIRECT 0.3 mg/dL (0.0-0.4); BILIRUBIN,TOTAL 0.3 mg/dL (0.2-1.3); BLOOD UREA NITROGEN 30 mg/dL (7-20); CARBON DIOXIDE 19 mmol/L (22-30); CHLORIDE 106 mmol/L (98-107); CREATINE KINASE 21 U/L (30-135); GLUCOSE 109 mg/dL (75-110); POTASSIUM 3.3 mmol/L (3.6-5.0); SODIUM 136.8 mmol/L (137-145); TOTAL PROTEIN 6.7 g/dL (6.3-8.2)
[2017-10-07 21:11] LABS: ABSOLUTE LYMPHOCYTES# (MANUAL) 3.3 10^3/uL (0.5-4.7); ABSOLUTE MONOCYTES # (MANUAL) 2.1 10^3/uL (0.1-1.4); ABSOLUTE NEUTROPHILS# (MANUAL) 5.4 10^3/uL (1.7-8.2); BASOPHILS % (MANUAL) 0 % (0-2); EOSINOPHILS % (MANUAL) 2 % (0-6); LYMPHOCYTES % (MANUAL) 30 % (13-45); MONOCYTES % (MANUAL) 19 % (3-13); SEGMENTED NEUTROPHILS % (MAN) 49 % (42-78); TOTAL CELLS COUNTED 100
[2017-10-07 21:14] LABS: TOXIC GRANULATION SLIGHT
[2017-10-07 21:15] VITALS: BP 160/69
[2017-10-07 21:15] LABS: ANISOCYTOSIS 2+; PLATELET COMMENT ADEQUATE; POIKILOCYTOSIS 1+
[2017-10-07 21:38] LABS: APPEARANCE,URINE CLEAR; BILIRUBIN,URINE NEGATIVE (NEGATIVE); COLOR,URINE STRAW; GLUCOSE, URINE NEGATIVE (NEGATIVE); KETONES,URINE NEGATIVE (NEGATIVE); LEUKOCYTE ESTERASE,URINE SMALL (NEGATIVE); NITRITE,URINE POSITIVE (NEGATIVE); PROTEIN,URINE NEGATIVE (NEGATIVE); URINE SPECIFIC GRAVITY 1.008; UROBILINOGEN,URINE NEGATIVE mg/dL (<2.0)
--- NOTE | 2017-10-07 23:04 | EKG REPORT ---
SEVERITY:- ABNORMAL ECG - SINUS RHYTHM RIGHT BUNDLE BRANCH BLOCK : Confirmed by: Xin Vazquez 07-Oct-2017 23:03:27
== END 2017-10-07 21:20 | disposition short-term general hospital (02) ==
LOC: ER 19:24
PROC: 2W3DX1Z Immobilization of Left Lower Arm using Splint (ICD-10-PCS; principal; 2017-10-07)
DX: S06.4X1A Epidural hemorrhage with loss of consciousness of 30 minutes or less, initial encounter (principal); S02.91XA Unspecified fracture of skull, initial encounter for closed fracture; S62.512A Displaced fracture of proximal phalanx of left thumb, initial encounter for closed fracture; W19.XXXA Unspecified fall, initial encounter; Z79.02 Long term (current) use of antithrombotics/antiplatelets; I50.9 Heart failure, unspecified; I25.2 Old myocardial infarction; E78.00 Pure hypercholesterolemia, unspecified; I11.0 Hypertensive heart disease with heart failure; J44.9 Chronic obstructive pulmonary disease, unspecified; Z85.3 Personal history of malignant neoplasm of breast; Z85.41 Personal history of malignant neoplasm of cervix uteri; Z85.038 Personal history of other malignant neoplasm of large intestine; Z90.49 Acquired absence of other specified parts of digestive tract; Z95.1 Presence of aortocoronary bypass graft; S01.111A Laceration without foreign body of right eyelid and periocular area, initial encounter
CPT/HCPCS: 36415; 51702; 70450; 71045; 72125; 80053; 81001; 82550; 83605; 84484; 85025; 85610; 87040; 87086; 87088; 87186; 93005; 93010; 99285

== ENCOUNTER 2017-11-06 14:43 | Emergency (ER) | payer MEDICARE, OTHER ==
[2017-11-06 15:52] LABS: ABSOLUTE LYMPHOCYTES (AUTO) 2.9 10^3/uL (0.5-4.7); ABSOLUTE MONOCYTES (AUTO) 0.7 10^3/uL (0.1-1.4); ABSOLUTE NEUT (AUTO) 7.2 10^3/uL (1.7-8.2); BASOPHILS % (AUTO) 0.3 % (0-2); EOSINOPHILS % (AUTO) 0.3 % (0-6); HEMATOCRIT 37.5 % (36.0-47.0); HEMOGLOBIN 12.6 g/dL (12.0-15.5); LYMPHOCYTES % (AUTO) 26.6 % (13-45); MEAN CORPUSCULAR HEMOGLOBIN 33.2 pg (27.0-33.4); MEAN CORPUSCULAR HGB CONC 33.6 g/dL (32.0-36.0); MEAN CORPUSCULAR VOLUME 99 fl (80-97); MONOCYTES % (AUTO) 6.8 % (3-13); PLATELET COUNT 139 10^3/uL (150-450); RED BLOOD COUNT 3.79 10^6/uL (3.72-5.28); RED CELL DISTRIBUTION WIDTH 20.2 % (11.5-14.0); TOTAL CELLS COUNTED % (AUTO) 100 %
[2017-11-06] MEDS ORDERED: METOPROLOL TARTRATE 25 MG TABLET PO ONE (15:54)
[2017-11-06] MEDS ORDERED: NIFEDIPINE 10 MG CAPSULE PO ONE (15:54)
[2017-11-06 16:12] LABS: ALANINE AMINOTRANSFERASE 26 U/L (9-52); ALBUMIN 3.6 g/dL (3.5-5.0); ALKALINE PHOSPHATASE 53 U/L (38-126); ANION GAP 10 (5-19); ASPARTATE AMINO TRANSFERASE 10 U/L (14-36); BILIRUBIN,DIRECT 0.2 mg/dL (0.0-0.4); BILIRUBIN,TOTAL 0.2 mg/dL (0.2-1.3); BLOOD UREA NITROGEN 30 mg/dL (7-20); CALCIUM 10.3 mg/dL (8.4-10.2); CARBON DIOXIDE 24 mmol/L (22-30); CHLORIDE 109 mmol/L (98-107); GLUCOSE 66 mg/dL (75-110); POTASSIUM 3.7 mmol/L (3.6-5.0); SODIUM 143.2 mmol/L (137-145); TOTAL PROTEIN 6.3 g/dL (6.3-8.2)
[2017-11-06 16:13] LABS: CREATINE KINASE < 20 U/L (30-135)
[2017-11-06 16:24] LABS: CREATINE KINASE MB 0.81 ng/mL (<4.55); TROPONIN I 0.028 ng/mL
--- NOTE | 2017-11-06 17:42 | ER Document Report ---
ED General - General Chief Complaint: Chest Pain Stated Complaint: CHEST PAIN Time Seen by Provider: 11/06/17 15:22 Mode of Arrival: Ambulatory Information source: Patient Notes: 80-year-old female history of hypertension who did not take her metoprolol or nifedipine presents with complaints of high blood pressure. Patient notes that she had mild pressure sensation of her chest denies any fevers or chills denies any nausea vomiting or diarrhea. Patient was sent in by her police lieutenant because her blood pressure was elevated TRAVEL OUTSIDE OF THE [place] IN LAST 30 DAYS: No - HPI Onset: Just prior to arrival Onset/Duration: Sudden Quality of pain: Achy Severity: Mild Pain Level: 1 Associated symptoms: Chest pain Exacerbated by: Denies Relieved by: Denies Similar symptoms previously: Yes Recently seen / treated by doctor: Yes - Related Data Allergies/Adverse Reactions: quinine [Quinine] Adverse Reaction (Verified 01/14/16 21:26) thyroid problems Past Medical History - Social History Smoking Status: Never Smoker Cigarette use (# per day): No Chew tobacco use (# tins/day): No Smoking Education Provided: No Frequency of alcohol use: None Drug Abuse: None Family History: Reviewed & Not Pertinent Patient has suicidal ideation: No Patient has homicidal ideation: No - Past Medical History Cardiac Medical History: Reports: Hx Congestive Heart Failure - Diastolic dysfunction, Hx Coronary Artery Disease, Hx Heart Attack, Hx Hypercholesterolemia, Hx Hypertension Pulmonary Medical History: Reports: Hx COPD Neurological Medical History: Denies: Hx Seizures Renal/ Medical History: Reports: Hx Renal Insufficiency. Denies: Hx Peritoneal Dialysis Malignancy Medical History: Reports: Hx Breast Cancer, Hx Cervical Cancer, Hx Colorectal Cancer Musculoskeltal Medical History: Reports Hx Arthritis - Rheumatoid arthritis Psychiatric Medical History: Denies: Hx Depression Past Surgical History: Reports: Hx Appendectomy, Hx Bowel Surgery - Hemicolectomy, Hx Breast Surgery, Hx Cholecystectomy, Hx Coronary Artery Bypass Graft - x3, Hx Hysterectomy, Hx Lumpectomy, Hx Open Heart Surgery - triple bypass - Immunizations Hx Diphtheria, Pertussis, Tetanus Vaccination: No Hx Pneumococcal Vaccination: 03/13/14 Review of Systems - Review of Systems Notes: REVIEW OF SYSTEMS: CONSTITUTIONAL : Denies fever, chills, or sweats. Denies recent illness. EENT: Denies eye, ear, throat, or mouth pain or symptoms. Denies nasal or sinus congestion or discharge. Denies throat, tongue, or mouth swelling or difficulty swallowing. CARDIOVASCULAR: Admits to mild chest pain RESPIRATORY: Denies cough, cold, or chest congestion. Denies shortness of breath, difficulty breathing, or wheezing. GASTROINTESTINAL: Denies abdominal pain or distention. Denies nausea, vomiting , or diarrhea. Denies blood in vomitus, stools, or per rectum. Denies black, tarry stools. Denies constipation. GENITOURINARY: Denies difficulty urinating, painful urination, burning, frequency, blood in urine, or discharge. FEMALE GENITOURINARY: Denies vaginal bleeding, heavy or abnormal periods, irregular periods. Denies vaginal discharge or odor. MUSCULOSKELETAL: Denies back or neck pain or stiffness. Denies joint pain or swelling. SKIN: Denies rash, lesions or sores. HEMATOLOGIC : Denies easy bruising or bleeding. LYMPHATIC: Denies swollen, enlarged glands. NEUROLOGICAL: Denies confusion or altered mental status. Denies passing out or loss of consciousness. Denies dizziness or lightheadedness. Denies headache. Denies weakness or paralysis or loss of use of either side. Denies problems with gait or speech. Denies sensory loss, numbness, or tingling. Denies seizures. PSYCHIATRIC: Denies anxiety or stress. Denies depression, suicidal ideation, or homicidal ideation. ALL OTHER SYSTEMS REVIEWED AND NEGATIVE. PHYSICAL EXAMINATION: GENERAL: Well-appearing, well-nourished and in no acute distress. Hypertensive HEAD: Atraumatic, normocephalic. EYES: Pupils equal round and reactive to light, extraocular movements intact, conjunctiva are normal. ENT: Nares patent, oropharynx clear without exudates. Moist mucous membranes. NECK: Normal range of motion, supple without lymphadenopathy LUNGS: Breath sounds clear to auscultation bilaterally and equal. No wheezes rales or rhonchi. HEART: Regular rate and rhythm without murmurs ABDOMEN: Soft, nontender, nondistended abdomen. No guarding, no rebound. No masses appreciated. Female : deferred Musculoskeletal: Normal range of motion, no pitting or edema. No cyanosis. NEUROLOGICAL: Cranial nerves grossly intact. Normal speech, normal gait. Normal sensory, motor exams PSYCH: Normal mood, normal affect. SKIN: Warm, Dry, normal turgor, no rashes or lesions noted. Dictation was performed using [employer] voice recognition software Physical Exam - Vital signs Vitals: Temp Pulse Resp BP Pulse Ox 97.7 F 85 18 214/92 H 99 11/06/17 15:01 11/06/17 15:01 11/06/17 15:01 11/06/17 15:01 11/06/17 15:01 Course - Re-evaluation Re-evalutation: 11/07/17 12:16 11/07/17 11:55 Patient was given her home medications, her blood pressure improved significantly, she has no pain at this time, workup otherwise was benign, I offered the patient admission but both she and 2 family members refuse, they state that they live only a few minutes away they will come in if symptoms return or worsen. I explained that obviously is not a complete cardiac evaluation and they said they understand that but they believe her symptoms are all related to the high blood pressure After performing a Medical Screening Examination, I estimate there is LOW risk for RUPTURED ESOPHAGUS, PNEUMOTHORAX, PULMONARY EMBOLISM, ACUTE CORONARY SYNDROME, OR THORACIC AORTIC DISSECTION, thus I consider the discharge disposition reasonable. I have reevaluated this patient multiple times and no significant life threatening changes are noted. The patient and I have discussed the diagnosis and risks, and we agree with discharging home with close follow-up. We also discussed returning to the Emergency Department immediately if new or worsening symptoms occur. We have discussed the symptoms which are most concerning (e.g., bloody sputum, worsening pain or shortness of breath) that necessitate immediate return. - Vital Signs Vital signs: Temp Pulse Resp BP Pulse Ox 97.7 F 85 20 157/75 H 94 11/06/17 15:01 11/06/17 15:01 11/06/17 17:46 11/06/17 17:46 11/06/17 17:46 - Laboratory Result Diagrams: 11/06/17 15:27 11/06/17 15:27 Laboratory results interpreted by me: 11/06/17 11/06/17 15:27 15:27 WBC 11.0 H MCV 99 H RDW 20.2 H Plt Count 139 L Chloride 109 H BUN 30 H Est GFR ( Amer) 51 L Est GFR (Non-Af Amer) 42 L Glucose 66 L Calcium 10.3 H AST 10 L Creatine Kinase < 20 L - Diagnostic Test Radiology reviewed: Image reviewed, Reports reviewed - EKG Interpretation by Nm EKG shows normal: Sinus rhythm, Odd, Intervals, QRS Complexes Discharge - Discharge Clinical Impression: CKD (chronic kidney disease), stage III Chest pain Qualifiers: Chest pain type: unspecified Qualified Code(s): R07.9 - Chest pain, unspecified HTN (hypertension) Qualifiers: Hypertension type: essential hypertension Qualified Code(s): I10 - Essential ( primary) hypertension Condition: Stable Disposition: HOME, SELF-CARE Instructions: Chest Pain of Unclear Cause ([facility]) Referrals: DINORA PALMER MD [Primary Care Provider] - Follow up tomorrow
[2017-11-06 18:08] VITALS: BP 157/75
--- NOTE | 2017-11-06 21:06 | EKG REPORT ---
SEVERITY:- ABNORMAL ECG - SINUS RHYTHM LEFT ATRIAL ABNORMALITY RIGHT BUNDLE BRANCH BLOCK : Confirmed by: Xin Vazquez 06-Nov-2017 21:06:09
== END 2017-11-06 18:08 | disposition home or self-care (01) ==
LOC: ER 14:43
DX: I12.9 Hypertensive chronic kidney disease with stage 1 through stage 4 chronic kidney disease, or unspecified chronic kidney disease (principal); N18.3 Chronic kidney disease, stage 3 (moderate); Z79.899 Other long term (current) drug therapy; R07.89 Other chest pain; I25.10 Atherosclerotic heart disease of native coronary artery without angina pectoris; I25.2 Old myocardial infarction; J44.9 Chronic obstructive pulmonary disease, unspecified; Z95.1 Presence of aortocoronary bypass graft
CPT/HCPCS: 93005; 99285; 36415; 82553; 82550; 85025; 80053; 84484; 93010; A9270 ×2; J3490

== ENCOUNTER → 2018-03-03 | Outpatient (CLI) | payer MEDICARE, OTHER ==
--- NOTE | 2018-03-03 14:06 | WOMENS IMAGING REPORT ---
EXAM DESCRIPTION: BONE DENSITY HIP/SPINE COMPLETED DATE/TIME: 03/03/2018 1:56 pm REASON FOR STUDY: BONE DENSITY/M81.0 M81.0 AGE-RELATED OSTEOPOROSIS W/O CURRENT PATHOLOGICAL FRAC COMPARISON: 07/13/2009 12/14/2006 TECHNIQUE: Dual-Energy X-ray Absorptiometry (DEXA) of the AP Spine and Hip. LIMITATIONS: None. FINDINGS: LUMBAR SPINE: The bone mineral density (BMD) measured from L1-L4 in the AP projection correlates with a T-score of -1.6, which is osteopenia as defined by the World Health Organization. HIP: The bone mineral density (BMD) measured in the left hip correlates with a T-score of -3.4 in the femo ral neck, which is osteoporosis as defined by the World Health Organization. IMPRESSION: 1. LUMBAR SPINE: Osteopenia 2. HIP: Osteoporosis COMMENT: The World Health Organization defines low BMD as follows: T-score: Normal: Greater than -1.0 Osteopenia: Between -1.0 and -2.5 Osteoporosis: Less than -2.5 without fractures Established osteoporosis: Less than -2.5 with fractures In general, you may wish to consider: Diagnosis Treatment Follow-up DEXA Normal BMD Prevention 2-3 years Osteopenia Prevention/Therapy 1-2 years Osteoporosis Therapy Yearly TECHNICAL DOCUMENTATION: JOB ID: [id number]- All Rights Reserved Reading location - IP/workstation name: [email or web address]
== END ==
LOC: WI 13:12
PROVIDERS: ATTEND Internal Medicine
DX: M81.0 Age-related osteoporosis without current pathological fracture (principal)
CPT/HCPCS: 77080

== ENCOUNTER → 2018-04-14 | Outpatient (CLI) | payer MEDICARE, OTHER ==
[2018-04-14 12:35] LABS: ANION GAP 15 (5-19); BLOOD UREA NITROGEN 13 mg/dL (7-20); CALCIUM 10.4 mg/dL (8.4-10.2); CARBON DIOXIDE 21 mmol/L (22-30); CHLORIDE 102 mmol/L (98-107); GLUCOSE 117 mg/dL (75-110); PHOSPHORUS 3.6 mg/dL (2.5-4.5); POTASSIUM 4.9 mmol/L (3.6-5.0); SODIUM 137.9 mmol/L (137-145)
[2018-04-14 12:54] LABS: HEMATOCRIT 35.9 % (36.0-47.0); HEMOGLOBIN 11.8 g/dL (12.0-15.5); MEAN CORPUSCULAR HEMOGLOBIN 29.8 pg (27.0-33.4); MEAN CORPUSCULAR HGB CONC 32.9 g/dL (32.0-36.0); MEAN CORPUSCULAR VOLUME 90 fl (80-97); PLATELET COUNT 351 10^3/uL (150-450); RED BLOOD COUNT 3.97 10^6/uL (3.72-5.28); RED CELL DISTRIBUTION WIDTH 15.1 % (11.5-14.0); WHITE BLOOD COUNT 9.1 10^3/uL (4.0-10.5)
[2018-04-15 14:41] LABS: APPEARANCE,URINE SLIGHTLY-CLOUDY; BILIRUBIN,URINE NEGATIVE (NEGATIVE); COLOR,URINE YELLOW; GLUCOSE, URINE 50 mg/dL (NEGATIVE); KETONES,URINE NEGATIVE (NEGATIVE); LEUKOCYTE ESTERASE,URINE LARGE (NEGATIVE); NITRITE,URINE NEGATIVE (NEGATIVE); PROTEIN,URINE 30 mg/dL (NEGATIVE); URINE SPECIFIC GRAVITY 1.012; UROBILINOGEN,URINE NEGATIVE mg/dL (<2.0)
== END ==
LOC: OD 11:04
PROVIDERS: ATTEND Physician Assistant Medical
DX: I12.9 Hypertensive chronic kidney disease with stage 1 through stage 4 chronic kidney disease, or unspecified chronic kidney disease (principal); N18.3 Chronic kidney disease, stage 3 (moderate); R80.9 Proteinuria, unspecified; D64.9 Anemia, unspecified
CPT/HCPCS: 36415; 80048; 81001; 83970; 84100; 85025; 85027

== ENCOUNTER → 2018-07-02 | Outpatient (CLI) | payer MEDICARE, OTHER ==
[2018-07-02 12:13] LABS: IRON(TIBC) 56.7 ug/dL (37-170)
== END ==
LOC: OD 10:04
PROVIDERS: ATTEND Internal Medicine Nephrology
DX: D64.9 Anemia, unspecified (principal); N18.3 Chronic kidney disease, stage 3 (moderate)
CPT/HCPCS: 36415; 82728; 83540; 83550

== ENCOUNTER 2018-07-28 17:17 | Inpatient (IN) | payer MEDICARE, OTHER ==
--- NOTE | 2018-07-28 17:46 | ER Document Report ---
ED Medical Screen (RME) - General Chief Complaint: Abnormal Lab Results Stated Complaint: ABNORMAL LABS, DIFFICULTY BREATHING Time Seen by Provider: 07/28/18 17:35 Primary Care Provider: Anna LEONE MD [Primary Care Provider] - Follow up as needed Notes: Recently discharged from another facility with diagnosis of lung cancer and new onset atrial fibrillation. She now has dyspnea on exertion and seems to be tachypneic. She was informed that recent lab work showed a high potassium level and she needed to come to the emergency room. The lab work was not done at this facility. I have greeted and performed a rapid initial assessment of this patient. A comprehensive ED assessment and evaluation of the patient, analysis of test results and completion of the medical decision making process will be conducted by additional ED providers. TRAVEL OUTSIDE OF THE [place] IN LAST 30 DAYS: No - Related Data Allergies/Adverse Reactions: quinine [Quinine] Adverse Reaction (Verified 07/28/18 17:20) thyroid problems Past Medical History - Past Medical History Cardiac Medical History: Reports: Hx Congestive Heart Failure - Diastolic dysfunction, Hx Coronary Artery Disease, Hx Heart Attack, Hx Hypercholesterolemia, Hx Hypertension Pulmonary Medical History: Reports: Hx COPD Neurological Medical History: Denies: Hx Seizures Renal/ Medical History: Reports: Hx Renal Insufficiency. Denies: Hx Neelam toneal Dialysis Malignancy Medical History: Reports: Hx Breast Cancer, Hx Cervical Cancer, Hx Colorectal Cancer Musculoskeltal Medical History: Reports Hx Arthritis - Rheumatoid arthritis Psychiatric Medical History: Denies: Hx Depression Past Surgical History: Reports: Hx Appendectomy, Hx Bowel Surgery - Hemicolectomy, Hx Breast Surgery, Hx Cholecystectomy, Hx Coronary Artery Bypass Graft - x3, Hx Hysterectomy, Hx Lumpectomy, Hx Open Heart Surgery - triple bypass - Immunizations Hx Diphtheria, Pertussis, Tetanus Vaccination: No History of Influenza Vaccine for 04/2017 - 09/2017 Season: Refused Physical Exam - Vital signs Vitals: Temp Pulse Resp BP Pulse Ox 97.7 F 51 L 20 129/43 H 97 07/28/18 17:26 07/28/18 17:26 07/28/18 17:26 07/28/18 17:07/28/18 17:26 Course - Vital Signs Vital signs: Temp Pulse Resp BP Pulse Ox 97.7 F 51 L 20 129/43 H 97 07/28/18 17:26 07/28/18 17:26 07/28/18 17:26 07/28/18 17:26 07/28/18 17:26 Doctor's Discharge - Discharge Referrals: Anna LEONE MD [Primary Care Provider] - Follow up as needed
--- NOTE | 2018-07-28 18:24 | RADIOLOGY REPORT (SQ) ---
EXAM DESCRIPTION: CHEST 2 VIEWS COMPLETED DATE/TIME: 07/28/2018 6:01 pm REASON FOR STUDY: SOB, lung Cancer COMPARISON: 10/07/2017 EXAM PARAMETERS: NUMBER OF VIEWS: two views TECHNIQUE: Digital Frontal and Lateral radiographic views of the chest acquired. RADIATION DOSE: NA LIMITATIONS: none FINDINGS: LUNGS AND PLEURA: The somewhat lobulated 5 cm right lower lobe lung mass. MEDIASTINUM AND HILAR STRUCTURES: No masses or contour abnormalities. HEART AND VASCULAR STRUCTURES: Cardiomegaly. No sigrid pulmonary edema. BONES: No acute findings. HARDWARE: Sternotomy wires. Graft markers. OTHER: No other significant finding. IMPRESSION: 5 cm right lower lobe lung mass. Marked change since the earlier study. TECHNICAL DOCUMENTATION: JOB ID: [id number] [employer]- All Rights Reserved Reading location - IP/workstation name: [email or web address]
--- NOTE | 2018-07-28 18:51 | ER Document Report ---
ED General - General Chief Complaint: Abnormal Lab Results Stated Complaint: ABNORMAL LABS, DIFFICULTY BREATHING Time Seen by Provider: 07/28/18 17:35 Mode of Arrival: Ambulatory Information source: Patient, Relative, [facility] Records Notes: 83-year-old female with atrial fibrillation, congestive heart failure (diastolic), coronary artery disease, hypertension, hyperlipidemia, recent diagnosis of lung cancer, rheumatoid arthritis presents via private vehicle from home after her sales support rep Dr. Mead called to tell her that she needs to come to the emergency room immediately due to an elevated potassium level. Patient is currently complaining of shortness of breath that has been ongoing for 1 week. She states that she has a known mass "pressing against her airway" per her daughter who is at the bedside. Recent imaging was done at [facility]. Patient recently had a hospitalization to [facility] for new onset atrial fibrillation. She has been started on Cardizem. She takes no blood thinning medications except for a baby aspirin every day. TRAVEL OUTSIDE OF THE [place] IN LAST 30 DAYS: No - HPI Onset: Other Onset/Duration: Persistent Quality of pain: No pain Associated symptoms: Nonproductive cough, Shortness of breath. denies: Chest pain, Fever, Headache, Hurts to breath, Leg swelling, Nausea, Vomiting Exacerbated by: Walking Relieved by: Denies Similar symptoms previously: Yes Recently seen / treated by doctor: Yes - Related Data Allergies/Adverse Reactions: quinine [Quinine] Adverse Reaction (Verified 07/28/18 17:20) thyroid problems Past Medical History - General Information source: Patient, Relative, [facility] Records - Social History Smoking Status: Former Smoker Frequency of alcohol use: None Drug Abuse: None Lives with: Family Family History: Reviewed & Not Pertinent Patient has suicidal ideation: No Patient has homicidal ideation: No - Past Medical History Cardiac Medical History: Reports: Hx Congestive Heart Failure - Diastolic dysfunction, Hx Coronary Artery Disease, Hx Heart Attack, Hx Hypercholesterolemia, Hx Hypertension Pulmonary Medical History: Reports: Hx COPD Neurological Medical History: Denies: Hx Seizures Renal/ Medical History: Reports: Hx Renal Insufficiency. Denies: Hx Per itoneal Dialysis Malignancy Medical History: Reports: Hx Breast Cancer, Hx Cervical Cancer, Hx Colorectal Cancer Musculoskeletal Medical History: Reports Hx Arthritis - Rheumatoid arthritis Psychiatric Medical History: Denies: Hx Depression Past Surgical History: Reports: Hx Appendectomy, Hx Bowel Surgery - Hemicolectomy, Hx Breast Surgery, Hx Cholecystectomy, Hx Coronary Artery Bypass Graft - x3, Hx Hysterectomy, Hx Lumpectomy, Hx Open Heart Surgery - triple bypass - Immunizations Hx Diphtheria, Pertussis, Tetanus Vaccination: No Hx Pneumococcal Vaccination: 03/13/14 Review of Systems - Review of Systems Notes: REVIEW OF SYSTEMS: CONSTITUTIONAL : Denies fever, chills, or sweats. Denies recent illness. Denies weight loss, recent hospitalizations. EENT: Denies visual changes, eye pain. Denies sore throat, oral lesions, difficulty swallowing. CARDIOVASCULAR: Denies chest pain. Denies palpitations. Denies lower extremity edema. RESPIRATORY: Denies wheezing. GASTROINTESTINAL: Denies abdominal pain or distention. Denies nausea, vomiting, or diarrhea. Denies blood in vomitus, stools, or per rectum. Denies black, tarry stools. Denies constipation. GENITOURINARY: Denies difficulty urinating, painful urination, frequency, blood in urine, or vaginal discharge. MUSCULOSKELETAL: Denies back or neck pain or stiffness. Denies joint pain or swelling. SKIN: Denies rash, lesions or sores. HEMATOLOGIC : Denies easy bruising or bleeding. LYMPHATIC: Denies swollen glands. NEUROLOGICAL: Denies confusion or altered mental status. Denies loss of consciousness. Denies dizziness or lightheadedness. Denies headache. Denies weakness or paralysis. Denies problems difficulty with ambulation, slurred speech. Denies sensory loss, numbness, or tingling. Denies seizures. PSYCHIATRIC: Denies anxiety or stress. Denies depression, suicidal ideation, or homicidal ideation. Denies visual or auditory hallucinations. Physical Exam - Vital signs Vitals: Temp Pulse Resp BP Pulse Ox 97.7 F 51 L 20 129/43 H 97 07/28/18 17:26 07/28/18 17:26 07/28/18 17:26 07/28/18 17:26 07/28/18 17:26 - Notes Notes: PHYSICAL EXAMINATION: GENERAL: Visibly dyspneic, mild distress. HEAD: Atraumatic, normocephalic. EYES: Pupils equal round and reactive to light, extraocular movements intact, conjunctiva are normal. ENT: Nares patent, oropharynx clear without exudates. Dry mucous membranes. NECK: Normal range of motion, supple without lymphadenopathy LUNGS: Breath sounds clear to auscultation bilaterally and equal. No wheezes rales or rhonchi. HEART: Bradycardic, regular rhythm ABDOMEN: Soft, nontender, nondistended abdomen. No guarding, no rebound. No masses appreciated. Female : deferred Musculoskeletal: Normal range of motion, no pitting or edema. No cyanosis. NEUROLOGICAL: Cranial nerves grossly intact. Normal speech, normal gait. Normal sensory, motor exams PSYCH: Normal mood, normal affect. SKIN: Warm, Dry, normal turgor, no rashes or lesions noted. Course - Re-evaluation Re-evalutation: Laboratory 07/28/18 07/28/18 07/28/18 18:58 18:58 18:58 WBC 11.0 H RBC 3.41 L Hgb 10.4 L Hct 31.4 L MCV 92 MCH 30.5 MCHC 33.2 RDW 17.1 H Plt Count 298 Total Counted 100 Seg Neutrophils % Not Reportable Seg Neuts % (Manual) 87 H Lymphocytes % Not Reportable Lymphocytes % (Manual) 10 L Monocytes % Not Reportable Monocytes % (Manual) 2 L Eosinophils % Not Reportable Eosinophils % (Manual) 1 Basophils % Not Reportable Basophils % (Manual) 0 Absolute Neutrophils Not Reportable Abs Neuts (Manual) 9.6 H Absolute Lymphocytes Not Reportable Abs Lymphs (Manual) 1.1 Absolute Monocytes Not Reportable Abs Monocytes (Manual) 0.2 Absolute Eosinophils Not Reportable Absolute Eos (Manual) 0.1 Absolute Basophils Not Reportable Abs Basophils (Manual) 0.0 Toxic Granulation SLIGHT Platelet Comment ADEQUATE Anisocytosis 1+ Sodium 134.0 L Potassium 6.3 H* Chloride 107 Carbon Dioxide 14 L Anion Gap 13 BUN 48 H Creatinine 2.69 H Est GFR ( Amer) 20 L Est GFR (Non-Af Amer) 17 L Glucose 179 H Calcium 6.0 L* Total Bilirubin 0.3 Direct Bilirubin 0.3 Neonat Total Bilirubin Not Reportable Neonat Direct Bilirubin Not Reportable Neonat Indirect Bili Not Reportable AST 18 ALT 43 Alkaline Phosphatase 56 Creatine Kinase 49 CK-MB (CK-2) 0.99 Troponin I < 0.012 NT-Pro-B Natriuret Pep 9130 H Total Protein 6.0 L Albumin 3.7 Urine Color Urine Appearance Urine pH Ur Specific [place] Urine Protein Urine Glucose (UA) Urine Ketones Urine Blood Urine Nitrite Urine Bilirubin Urine Urobilinogen Ur Leukocyte Esterase Urine WBC (Auto) Squamous Epi Cells Auto Amorphous Sediment Auto Urine Ascorbic Acid 07/28/18 07/28/18 22:00 22:00 WBC RBC Hgb Hct MCV MCH MCHC RDW Plt Count Total Counted Seg Neutrophils % Seg Neuts % (Manual) Lymphocytes % Lymphocytes % (Manual) Monocytes % Monocytes % (Manual) Eosinophils % Eosinophils % (Manual) Basophils % Basophils % (Manual) Absolute Neutrophils Abs Neuts (Manual) Absolute Lymphocytes Abs Lymphs (Manual) Absolute Monocytes Abs Monocytes (Manual) Absolute Eosinophils Absolute Eos (Manual) Absolute Basophils Abs Basophils (Manual) Toxic Granulation Platelet Comment Anisocytosis Sodium 132.7 L Potassium 6.0 H* Chloride 107 Carbon Dioxide 18 L Anion Gap 8 BUN 52 H Creatinine 2.50 H Est GFR ( Amer) 22 L Est GFR (Non-Af Amer) 18 L Glucose 104 Calcium 7.2 L Total Bilirubin Direct Bilirubin Neonat Total Bilirubin Neonat Direct Bilirubin Neonat Indirect Bili AST ALT Alkaline Phosphatase Creatine Kinase CK-MB (CK-2) Troponin I NT-Pro-B Natriuret Pep Total Protein Albumin Urine Color YELLOW Urine Appearance SLIGHTLY-CLOUDY Urine pH 5.0 Ur Specific [place] 1.014 Urine Protein 30 H Urine Glucose (UA) 150 H Urine Ketones NEGATIVE Urine Blood NEGATIVE Urine Nitrite NEGATIVE Urine Bilirubin NEGATIVE Urine Urobilinogen NEGATIVE Ur Leukocyte Esterase NEGATIVE Urine WBC (Auto) 1 Squamous Epi Cells Auto <1 Amorphous Sediment Auto 1+ Urine Ascorbic Acid NEGATIVE Chest X-Ray 07/28/18 17:44 IMPRESSION: 5 cm right lower lobe lung mass. Marked change since the earlier study. Temp Pulse Resp BP Pulse Ox 97.3 F 75 16 145/62 H 98 07/29/18 02:40 07/29/18 02:40 07/29/18 02:40 07/29/18 02:40 07/29/18 02:40 83-year-old female with atrial fibrillation, congestive heart failure (diastolic), coronary artery disease, hypertension, hyperlipidemia, recent diagnosis of lung cancer, rheumatoid arthritis presents via private vehicle from home after her sales support rep Dr. Mead called to tell her that she needs to come to the emergency room immediately due to an elevated potassium level. Patient is currently complaining of shortness of breath that has been ongoing for 1 week. She states that she has a known mass "pressing against her airway" per her daughter who is at the bedside. Recent imaging was done at [facility]. Patient recently had a hospitalization to [facility] for new onset atrial fibrillation. She has been started on Cardizem. She takes no blood thinning medications except for a baby aspirin every day. Vital signs reviewed upon arrival and patient is bradycardic, afebrile tachypneic but not hypoxic. Patient is visibly dyspneic. She was placed on oxygen and reports improvement of her dyspnea. Chest x-ray does show a 5 cm right lower lung mass which is known to the patient. CMP shows a potassium of 6.3 and worsening renal function with a creatinine of 2.5 which is an increase from her baseline. Patient's calcium also found to be 6.0. 07/28/18 19:55 Patient found to be profoundly bradycardic at a rate of 39. This could be secondary to calcium channel toxicity as patient was just started on Cardizem. Patient will be administered calcium gluconate, insulin, dextrose, albuterol and glucagon, Kayexalate, insulin. Pacer pads were placed on the patient. Crash cart placed outside the door. 07/29/18 03:30 07/29/18 03:32 Patient received 3 Amps of calcium gluconate, 10 units of insulin, dextrose, 3 mg of glucagon, 20 mg of insulin and 30 mg of Kayexalate. Patient did have an immediate improvement of her heart rate and repeat EKG showed the patient to be in normal sinus rhythm at a rate of 61. On reevaluation patient is resting comfortably. Repeat BMP shows only mild improvement of the patient's hyperkalemia and potassium is now 6.0 down from 6.3 despite treatment. This is likely due to have patient's worsening renal function. She is not currently on dialysis but Dr. Meda is her sales support rep. Patient discussed with the hospitalist Dr. Carreon who agrees to admit the patient. Patient and family agreeable with admission. Patient was reevaluated multiple times throughout her ED course. 07/29/18 03:36 - Vital Signs Vital signs: Temp Pulse Resp BP Pulse Ox 97.3 F 75 16 145/62 H 98 07/29/18 02:40 07/29/18 02:40 07/29/18 02:40 07/29/18 02:40 07/29/18 02:40 - Laboratory Result Diagrams: 07/28/18 18:58 01/24/19 01:46 Laboratory results interpreted by me: 07/28/18 07/28/18 07/28/18 18:58 18:58 18:58 WBC 11.0 H RBC 3.41 L Hgb 10.4 L Hct 31.4 L RDW 17.1 H Seg Neuts % (Manual) 87 H Lymphocytes % (Manual) 10 L Monocytes % (Manual) 2 L Abs Neuts (Manual) 9.6 H Sodium 134.0 L Potassium 6.3 H* Carbon Dioxide 14 L BUN 48 H Creatinine 2.69 H Est GFR ( Amer) 20 L Est GFR (Non-Af Amer) 17 L Glucose 179 H Calcium 6.0 L* NT-Pro-B Natriuret Pep 9130 H Total Protein 6.0 L Urine Protein Urine Glucose (UA) 07/28/18 07/28/18 22:00 22:00 WBC RBC Hgb Hct RDW Seg Neuts % (Manual) Lymphocytes % (Manual) Monocytes % (Manual) Abs Neuts (Manual) Sodium 132.7 L Potassium 6.0 H* Carbon Dioxide 18 L BUN 52 H Creatinine 2.50 H Est GFR ( Amer) 22 L Est GFR (Non-Af Amer) 18 L Glucose Calcium 7.2 L NT-Pro-B Natriuret Pep Total Protein Urine Protein 30 H Urine Glucose (UA) 150 H - Diagnostic Test Radiology reviewed: Image reviewed, Reports reviewed - Repeat EKG shows the patient to be in normal sinus rhythm at a rate of 61 which is a significant improvement from her initial heart rate of 39. - EKG Interpretation by Me EKG shows normal: Sinus rhythm Rate: Bradycardia Freeman/QRS: RBBB When compared to previous EKG there are: Changes noted, Other - Repeat EKG now shows the patient be in normal sinus rhythm at a rate of 61. Critical Care Note - Critical Care Note Total time excluding time spent on procedures (mins): 45 - Minutes of critical care time spent in direct contact evaluating and reevaluating the patient, treating symptoms, reviewing labs and studies and speaking with family and consultants excluding any procedures Discharge - Discharge Clinical Impression: Hyperkalemia, Bradycardia, End stage renal disease, Hypocalcemia, History of atrial fibrillation Lung cancer Qualifiers: Laterality: right Lung location: unspecified part of lung Qualified Code(s): C34.91 - Malignant neoplasm of unspecified part of right bronchus or lung Condition: Fair Disposition: ADMITTED INPATIENT Admitting Provider: Hospitalist Unit Admitted: Telemetry
[2018-07-28 19:14] LABS: HEMATOCRIT 31.4 % (36.0-47.0); HEMOGLOBIN 10.4 g/dL (12.0-15.5); MEAN CORPUSCULAR HEMOGLOBIN 30.5 pg (27.0-33.4); MEAN CORPUSCULAR HGB CONC 33.2 g/dL (32.0-36.0); MEAN CORPUSCULAR VOLUME 92 fl (80-97); PLATELET COUNT 298 10^3/uL (150-450); RED BLOOD COUNT 3.41 10^6/uL (3.72-5.28); RED CELL DISTRIBUTION WIDTH 17.1 % (11.5-14.0)
[2018-07-28 19:29] LABS: ALANINE AMINOTRANSFERASE 43 U/L (9-52); ALBUMIN 3.7 g/dL (3.5-5.0); ALKALINE PHOSPHATASE 56 U/L (38-126); ANION GAP 13 (5-19); ASPARTATE AMINO TRANSFERASE 18 U/L (14-36); BILIRUBIN,DIRECT 0.3 mg/dL (0.0-0.4); BILIRUBIN,TOTAL 0.3 mg/dL (0.2-1.3); BLOOD UREA NITROGEN 48 mg/dL (7-20); CARBON DIOXIDE 14 mmol/L (22-30); CHLORIDE 107 mmol/L (98-107); CREATINE KINASE 49 U/L (30-135); GLUCOSE 179 mg/dL (75-110)
[2018-07-28 19:32] LABS: ABSOLUTE LYMPHOCYTES# (MANUAL) 1.1 10^3/uL (0.5-4.7); ABSOLUTE MONOCYTES # (MANUAL) 0.2 10^3/uL (0.1-1.4); ABSOLUTE NEUTROPHILS# (MANUAL) 9.6 10^3/uL (1.7-8.2); BASOPHILS % (MANUAL) 0 % (0-2); EOSINOPHILS % (MANUAL) 1 % (0-6); LYMPHOCYTES % (MANUAL) 10 % (13-45); MONOCYTES % (MANUAL) 2 % (3-13); SEGMENTED NEUTROPHILS % (MAN) 87 % (42-78); TOTAL CELLS COUNTED 100
[2018-07-28 19:34] LABS: ANISOCYTOSIS 1+; PLATELET COMMENT ADEQUATE; TOXIC GRANULATION SLIGHT
[2018-07-28 19:41] LABS: POTASSIUM 6.3 mmol/L (3.6-5.0)
[2018-07-28 19:42] LABS: CREATINE KINASE MB 0.99 ng/mL (<4.55); NT PRO BNP 9130 pg/mL (<450)
[2018-07-28 19:44] LABS: TROPONIN I < 0.012 ng/mL
[2018-07-28] MEDS ORDERED: CALCIUM GLUCONATE 1000 MG/10 ML INJ IV ONE (19:45)
[2018-07-28] MEDS ORDERED: DEXTROSE 50%-WATER 25 GM/50 ML DISP.SYRIN IV ONE (19:46)
[2018-07-28] MEDS ORDERED: INSULIN REG, HUMAN 100 UNIT/ML 3 ML VIAL (PYX) IV ONE (19:46)
[2018-07-28] MEDS ORDERED: ALBUTEROL SULFATE 0.083% NEB 2.5 MG/3 ML AMPUL NEB ONE (19:48)
[2018-07-28] MEDS ORDERED: GLUCAGON,HUMAN RECOMB 1 MG INJ IV ONE (19:50)
[2018-07-28] MEDS ORDERED: ONDANSETRON HCL INJ/PF 4 MG/2 ML SDV IV ONE (19:50)
[2018-07-28 22:33] LABS: ANION GAP 8 (5-19); BLOOD UREA NITROGEN 52 mg/dL (7-20); CALCIUM 7.2 mg/dL (8.4-10.2); CARBON DIOXIDE 18 mmol/L (22-30); CHLORIDE 107 mmol/L (98-107); GLUCOSE 104 mg/dL (75-110); SODIUM 132.7 mmol/L (137-145)
[2018-07-28 22:34] LABS: AMORPHOUS SEDIMENT,URINE 1+ /HPF; APPEARANCE,URINE SLIGHTLY-CLOUDY; BILIRUBIN,URINE NEGATIVE (NEGATIVE); COLOR,URINE YELLOW; GLUCOSE, URINE 150 mg/dL (NEGATIVE); KETONES,URINE NEGATIVE (NEGATIVE); LEUKOCYTE ESTERASE,URINE NEGATIVE (NEGATIVE); NITRITE,URINE NEGATIVE (NEGATIVE); PROTEIN,URINE 30 mg/dL (NEGATIVE); URINE SPECIFIC GRAVITY 1.014; UROBILINOGEN,URINE NEGATIVE mg/dL (<2.0)
[2018-07-28] MEDS ORDERED: SODIUM POLYSTYRENE SULFONATE 15 GM/60 ML PO ONE (23:16)
[2018-07-28] MEDS ORDERED: FUROSEMIDE INJ/PF 40 MG/4 ML SDV IV ONE (23:16)
[2018-07-29] MEDS ORDERED: NORMAL SALINE 1000 ML 1,000 ML IV PRN (00:27)
[2018-07-29] MEDS ORDERED: MAG HYDROX/AL HYDROX/SIMETH SUSP 30 ML UDCUP PO PRN (00:27)
[2018-07-29] MEDS ORDERED: ONDANSETRON HCL INJ/PF 4 MG/2 ML SDV IV PRN (00:27)
[2018-07-29] MEDS ORDERED: MAGNESIUM HYDROXIDE SUSP 30 ML UDCUP PO PRN (00:27)
[2018-07-29] MEDS ORDERED: ONDANSETRON 4 MG TAB.RAPDIS PO PRN (00:27)
--- NOTE | 2018-07-29 00:27 | PDOC H&P ---
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 Patient denies any and all symptoms related to her elevated potassium. She has been eating and drinking normally, her activity level has been normal and she denies recent changes in medication with the exception of the recent addition of a calcium channel mary (Cardizem). She was also told yesterday that she has stage IV lung cancer but has not started any therapy or other treatment for her newly diagnosed state. In the emergency room she was found to be bradycardic as well as hyperkalemic and hypocalcemic. These electrolytes were corrected in part during her ER stay which also seem to improve her cardiac rhythm. Overall she was judged to be significantly more medically stable and she was subsequently admitted hospital for further evaluation and treatment. Past Medical History Cardiac Medical History: Reports: Congestive Heart Failure - Diastolic dysfunction, Coronary Artery Disease, Myocardial Infarction, Hyperlipidema, Hypertension Denies: DVT, Pulmonary Embolism Pulmonary Medical History: Reports: Chronic Obstructive Pulmonary Disease (COPD) Denies: Asthma, Intubation, Respiratory Failure EENT Medical History: Reports: None Neurological Medical History: Denies: Hemorrhagic CVA, Ischemic CVA, Seizures Endocrine Medical History: Denies: Diabetes Mellitus Type 1, Diabetes Mellitus Type 2, Hyperthyroidism, Hypothyroidism Renal/ Medical History: Reports: Chronic Kidney Disease Denies: Nephrolithiasis Malignancy Medical History: Reports: Breast Cancer, Cervical Cancer, Colorectal Cancer, Lung Cancer, Skin Cancer Denies: Renal (Kidney) Cancer GI Medical History: Denies: Cirrhosis, Hepatitis Musculoskeltal Medical History: Reports: Arthritis - Rheumatoid arthritis Denies: Gout Skin Medical History: Denies: Eczema, Psoriasis Psychiatric Medical History: Reports: Tobacco Dependency Denies: Alcohol Dependency, Depression, Substance Abuse Traumatic Medical History: Reports: None Hematology: Reports: Anemia Denies: Bleeding Tendencies Infectious Medical History: Reports: None Past Surgical History Past Surgical History: Reports: Appendectomy, Cholecystectomy, Coronary Artery Bypass Graft - x3, Hysterectomy Social History Information Source: Patient Lives with: Family Smoking Status: Former Smoker Frequency of Alcohol Use: Occasional Hx Recreational Drug Use: No Drugs: None Hx Prescription Drug Abuse: No - Advance Directive Resuscitation Status: Full Code Surrogate healthcare decision maker:: Sp Elvis Family History Family History: CAD, Hypertension, Malignancy. denies: DM Parental Family History Reviewed: Yes Children Family History Reviewed: Yes Sibling(s) Family History Reviewed.: Yes Medication/Allergy Home Medications: Atorvastatin Calcium [Lipitor 40 mg Tablet] 40 mg PO QHS 03/03/14 Docusate Sodium [Dulcoease] 100 mg PO DAILY 03/03/14 Folic Acid 1 mg PO DAILY 03/03/14 Nifedipine [Nifedipine ER] 30 mg PO QHS 03/03/14 Lansoprazole [Prevacid 15 mg Odt Tablet] 15 mg PO [id number] #30 tab.rap. 03/13/14 Multivitamin [Multi Vitamin Daily] 1 cap PO DAILY 07/19/14 Metoprolol Succinate 25 mg PO DAILY 07/21/14 Valsartan [Diovan] 320 mg PO DAILY 07/21/14 Alprazolam [Xanax 0.5 mg Tablet] 0.5 mg PO Q8H 08/10/14 Aspirin [Aspirin 81 mg Chewable Tablet] 81 mg PO DAILY 08/10/14 Ferrous Sulfate [Feosol 325 mg Tablet] 325 mg PO DAILY 08/10/14 Fluticasone Propionate [Flovent Diskus] 50 mcg IH DAILY 08/10/14 Allergies/Adverse Reactions: quinine [Quinine] Adverse Reaction (Verified 07/28/18 17:20) thyroid problems Review of Systems Constitutional: ABSENT: chills, fever(s) Eyes: ABSENT: visual disturbances, other - Ocular pain Ears: ABSENT: hearing changes, other - Ear pain Nose, Mouth, and Throat: ABSENT: mouth pain, sore throat Cardiovascular: ABSENT: chest pain, dyspnea on exertion, palpitations Respiratory: ABSENT: cough, dyspnea Gastrointestinal: ABSENT: abdominal pain, constipation, diarrhea, nausea, vomiting Genitourinary: ABSENT: dysuria, hematuria Musculoskeletal: ABSENT: deformity, joint swelling Integumentary: ABSENT: pruritus, rash Neurological: ABSENT: confusion, convulsions, memory loss, tremor(s) Psychiatric: ABSENT: anxiety, depression Endocrine: ABSENT: cold intolerance, heat intolerance Hematologic/Lymphatic: ABSENT: easy bleeding, easy bruising Physical Exam Vital Signs: Temp Pulse Resp BP Pulse Ox 97.7 F 51 L 16 143/54 H 99 07/28/18 17:26 07/28/18 17:26 07/28/18 21:01 07/28/18 21:01 07/28/18 21:01 Intake & Output 07/27/18 07/28/18 07/29/18 23:59 23:59 23:59 Weight 78.2 kg General appearance: PRESENT: no acute distress, cooperative Head exam: PRESENT: atraumatic, normocephalic Eye exam: PRESENT: conjunctiva pink, EOMI. ABSENT: scleral icterus Ear exam: PRESENT: normal external ear exam. ABSENT: bleeding, drainage Mouth exam: PRESENT: dry mucosa, neck supple Neck exam: ABSENT: thyromegaly, tracheal deviation Respiratory exam: PRESENT: clear to auscultation anita, decreased breath sounds - Breath sounds are mildly decreased throughout all [place] consistent with mild to moderate COPD, symmetrical, unlabored Cardiovascular exam: PRESENT: RRR. ABSENT: clicks, gallop, rubs Pulses: PRESENT: normal radial pulses, normal dorsalis pedis pul Vascular exam: PRESENT: normal capillary refill. ABSENT: pallor GI/Abdominal exam: PRESENT: normal bowel sounds, soft Rectal exam: PRESENT: deferred Extremities exam: ABSENT: joint swelling, pedal edema Musculoskeletal exam: ABSENT: deformity, dislocation Neurological exam: PRESENT: alert, oriented to person, oriented to place, oriented to time, oriented to situation, CN II-XII grossly intact. ABSENT: motor sensory deficit Psychiatric exam: PRESENT: appropriate affect, normal mood Skin exam: PRESENT: dry, intact, warm. ABSENT: jaundice, rash, urticaria Results Laboratory Results: 07/28/18 18:58 07/28/18 22:00 07/28/18 07/28/18 07/28/18 18:58 18:58 22:00 WBC 11.0 H RBC 3.41 L Hgb 10.4 L Hct 31.4 L MCV 92 MCH 30.5 MCHC 33.2 RDW 17.1 H Plt Count 298 Seg Neutrophils % Not Reportable Lymphocytes % Not Reportable Monocytes % Not Reportable Eosinophils % Not Reportable Basophils % Not Reportable Absolute Neutrophils Not Reportable Absolute Lymphocytes Not Reportable Absolute Monocytes Not Reportable Absolute Eosinophils Not Reportable Absolute Basophils Not Reportable Sodium 134.0 L 132.7 L Potassium 6.3 H* 6.0 H* Chloride 107 107 Carbon Dioxide 14 L 18 L Anion Gap 13 8 BUN 48 H 52 H Creatinine 2.69 H 2.50 H Est GFR ( Amer) 20 L 22 L Est GFR (Non-Af Amer) 17 L 18 L Glucose 179 H 104 Calcium 6.0 L* 7.2 L Total Bilirubin 0.3 AST 18 ALT 43 Alkaline Phosphatase 56 Total Protein 6.0 L Albumin 3.7 Urine Color Urine Appearance Urine pH Ur Specific [place] Urine Protein Urine Glucose (UA) Urine Ketones Urine Blood Urine Nitrite Ur Leukocyte Esterase Urine WBC (Auto) 07/28/18 22:00 WBC RBC Hgb Hct MCV MCH MCHC RDW Plt Count Seg Neutrophils % Lymphocytes % Monocytes % Eosinophils % Basophils % Absolute Neutrophils Absolute Lymphocytes Absolute Monocytes Absolute Eosinophils Absolute Basophils Sodium Potassium Chloride Carbon Dioxide Anion Gap BUN Creatinine Est GFR ( Amer) Est GFR (Non-Af Amer) Glucose Calcium Total Bilirubin AST ALT Alkaline Phosphatase Total Protein Albumin Urine Color YELLOW Urine Appearance SLIGHTLY-CLOUDY Urine pH 5.0 Ur Specific [place] 1.014 Urine Protein 30 H Urine Glucose (UA) 150 H Urine Ketones NEGATIVE Urine Blood NEGATIVE Urine Nitrite NEGATIVE Ur Leukocyte Esterase NEGATIVE Urine WBC (Auto) 1 07/28/18 07/28/18 18:58 18:58 Creatine Kinase 49 CK-MB (CK-2) 0.99 Troponin I < 0.012 NT-Pro-B Natriuret Pep 9130 H Impressions: Chest X-Ray 07/28/18 17:44 IMPRESSION: 5 cm right lower lobe lung mass. Marked change since the earlier study. Assessment & Plan - Diagnosis (1) Hyperkalemia Is this a current diagnosis for this admission?: Yes Plan: Patient was treated with Kayexalate insulin and Lasix given in the emergency room. She will be continued with intermittent Kayexalate dosing as needed to reduce her serum potassium to a level less than 5. Her serum potassium level will be followed closely with daily laboratory. (2) Hypocalcemia Is this a current diagnosis for this admission?: Yes Plan: Patient was given calcium intravenously in the emergency room and her bradycardia resolved with that therapy. Her calcium channel mary (Cardizem) will be discontinued and her serum calcium will be monitored throughout her hospital course. Her calcium will need to be normalized in order to be correctly interpreted or an ionized calcium level will have to be obtained. Her calcium levels will be followed on a daily basis. (3) Chronic kidney disease (CKD) Qualifiers: Chronic kidney disease stage: stage 3 (moderate) Qualified Code(s): N18.3 - Chronic kidney disease, stage 3 (moderate) Is this a current diagnosis for this admission?: Yes Plan: There is most likely an acute on chronic component to her kidney disease this she will be given IV fluid over the course of the next 8-12 hours and her laboratory values will be followed closely to assess her renal function status. Dr. Mead will most likely see the patient if requested in the form of a consultation. (4) Coronary artery disease Qualifiers: Coronary Disease-Associated Artery/Lesion type: [place] artery [place] vs. transplanted heart: [place] heart Associated angina: angina presence unspe cified Qualified Code(s): I25.10 - Atherosclerotic heart disease of [place] coronary artery without angina pectoris Is this a current diagnosis for this admission?: Yes Plan: Patient will be continued on her current cardiac medications throughout her hospital course. Changes will be made only as required such as the discontinuation of Cardizem from her regimen. (5) Lung cancer Qualifiers: Laterality: right Lung location: unspecified part of lung Qualified Code(s): C34.91 - Malignant neoplasm of unspecified part of right bronchus or lung Is this a current diagnosis for this admission?: Yes Plan: This is a new diagnosis for this patient. Dr. Cruz may be consulted if needed. - Time Time Spent: 30 to 50 Minutes Critical Time spent with patient: Less than 15 minutes Medications reviewed and adjusted accordingly: Yes Anticipated discharge: Home - Inpatient Certification Based on my medical assessment, after consideration of the patient's comorbidities, presenting symptoms, or acuity I expect that the services needed warrant INPATIENT care.: Yes I certify that my determination is in accordance with my understanding of Medicare's requirements for reasonable and necessary INPATIENT services [42 CFR 412.3e].: Yes Medical Necessity: Significant Comorbidiites Make Outpatient Treatment Too Risky, Need Close Monitoring Due to Risk of Patient Decompensation, Need For IV Fluids, Need For Continuous Telemetry Monitoring, Risk of Complication if Not Cared For in Hospital
[2018-07-29] MEDS ORDERED: ALBUTEROL SULFATE 0.083% NEB 2.5 MG/3 ML AMPUL NEB PRN (00:35)
[2018-07-29] MEDS ORDERED: ACETAMINOPHEN 650 MG SUPP.RECT PR PRN (00:35)
[2018-07-29] MEDS ORDERED: ACETAMINOPHEN 325 MG TABLET PO PRN (00:35)
[2018-07-29] MEDS ORDERED: SODIUM POLYSTYRENE SULFONATE 15 GM/60 ML PO ONE (00:40)
[2018-07-29] MEDS ORDERED: ALPRAZOLAM 0.5 MG TABLET PO SCH (00:45)
[2018-07-29] MEDS ORDERED: ALPRAZOLAM 0.5 MG TABLET PO ONE (01:00)
[2018-07-29 02:05] LABS: ANION GAP 8 (5-19); BLOOD UREA NITROGEN 50 mg/dL (7-20); CARBON DIOXIDE 19 mmol/L (22-30); CHLORIDE 110 mmol/L (98-107); GLUCOSE 121 mg/dL (75-110); SODIUM 137.2 mmol/L (137-145)
[2018-07-29 02:18] LABS: CALCIUM 6.9 mg/dL (8.4-10.2)
[2018-07-29] MEDS: ALPRAZOLAM 0.5 MG TABLET PO SCH ×3 (06:06→23:53)
[2018-07-29] MEDS: LANSOPRAZOLE 15 MG TAB.RAP.DR PO SCH (06:07)
[2018-07-29] MEDS: HEPARIN SOD (PORCINE) 5,000 UNIT/ML 1 ML SYRINGE SUBCUT SCH ×3 (06:07→23:53)
[2018-07-29] MEDS: BUDESONIDE NEB 0.5 MG/2 ML AMPUL NEB SCH ×2 (07:49→19:36)
[2018-07-29] MEDS: LEVALBUTEROL HCL NEB 1.25 MG/3 ML AMPUL NEB SCH ×3 (07:49→23:57)
[2018-07-29] MEDS: IPRATROPIUM BROMIDE 0.02% NEB 0.5 MG/2.5 ML AMPUL NEB SCH ×3 (07:49→23:57)
--- NOTE | 2018-07-29 08:00 | EKG REPORT ---
SEVERITY:- ABNORMAL ECG - SINUS RHYTHM PROBABLE LEFT ATRIAL ABNORMALITY RIGHT BUNDLE BRANCH BLOCK : Confirmed by: Sherrell Newton MD 29-Jul-2018 07:58:58
--- NOTE | 2018-07-29 08:00 | EKG REPORT ---
SEVERITY:- ABNORMAL ECG - SINUS BRADYCARDIA SHORT OH INTERVAL, ACCELERATED AV CONDUCTION PROBABLE LEFT ATRIAL ABNORMALITY RIGHT BUNDLE BRANCH BLOCK : Confirmed by: Sherrell Newton MD 29-Jul-2018 07:59:03
[2018-07-29 08:11] LABS: ANION GAP 8 (5-19); BLOOD UREA NITROGEN 46 mg/dL (7-20); CARBON DIOXIDE 21 mmol/L (22-30); CHLORIDE 109 mmol/L (98-107); GLUCOSE 91 mg/dL (75-110); POTASSIUM 5.6 mmol/L (3.6-5.0); SODIUM 138.1 mmol/L (137-145)
[2018-07-29 08:30] LABS: CALCIUM 6.7 mg/dL (8.4-10.2)
[2018-07-29] MEDS: DOCUSATE SODIUM 100 MG CAPSULE PO SCH ×2 (09:44→18:08)
[2018-07-29] MEDS: FOLIC ACID 1 MG TABLET PO SCH (09:54)
[2018-07-29] MEDS: FERROUS SULFATE 325 MG TABLET PO SCH (09:55)
[2018-07-29] MEDS: MULTIVITAMIN TABLET PO SCH (09:56)
[2018-07-29] MEDS: ASPIRIN 81 MG TABLET, CHEWABLE PO SCH (09:56)
[2018-07-29] MEDS ORDERED: VALSARTAN 160 MG TABLET PO SCH (10:00)
[2018-07-29] MEDS ORDERED: METOPROLOL SUCCINATE 50 MG TAB.SR.24H PO SCH (10:00)
[2018-07-29] MEDS ORDERED: SODIUM POLYSTYRENE SULFONATE 15 GM/60 ML PO SCH (17:45)
[2018-07-29] MEDS ORDERED: CALCIUM GLUCONATE 2,000 MG in DEXTROSE 5%-WATER 100 ML IV ONE (19:00)
[2018-07-29] MEDS: PATIROMER 8.4 GM SUSP PACKET PO SCH (23:52)
[2018-07-29] MEDS: ATORVASTATIN CALCIUM 40 MG TABLET PO SCH (23:54)
[2018-07-30] MEDS: ALPRAZOLAM 0.5 MG TABLET PO SCH ×3 (06:35→21:49)
[2018-07-30] MEDS: LANSOPRAZOLE 15 MG TAB.RAP.DR PO SCH (06:35)
[2018-07-30] MEDS: HEPARIN SOD (PORCINE) 5,000 UNIT/ML 1 ML SYRINGE SUBCUT SCH ×3 (06:36→21:51)
[2018-07-30] MEDS: IPRATROPIUM BROMIDE 0.02% NEB 0.5 MG/2.5 ML AMPUL NEB SCH ×2 (07:31→17:16)
[2018-07-30] MEDS: LEVALBUTEROL HCL NEB 1.25 MG/3 ML AMPUL NEB SCH ×2 (07:31→17:17)
[2018-07-30] MEDS: BUDESONIDE NEB 0.5 MG/2 ML AMPUL NEB SCH ×2 (07:31→20:30)
[2018-07-30 08:17] LABS: HEMATOCRIT 30.9 % (36.0-47.0); HEMOGLOBIN 10.3 g/dL (12.0-15.5); MEAN CORPUSCULAR HEMOGLOBIN 30.5 pg (27.0-33.4); MEAN CORPUSCULAR HGB CONC 33.2 g/dL (32.0-36.0); MEAN CORPUSCULAR VOLUME 92 fl (80-97); PLATELET COUNT 231 10^3/uL (150-450); RED BLOOD COUNT 3.36 10^6/uL (3.72-5.28); RED CELL DISTRIBUTION WIDTH 17.4 % (11.5-14.0); WHITE BLOOD COUNT 7.7 10^3/uL (4.0-10.5)
[2018-07-30 08:35] LABS: ANION GAP 6 (5-19); BLOOD UREA NITROGEN 33 mg/dL (7-20); CARBON DIOXIDE 21 mmol/L (22-30); CHLORIDE 109 mmol/L (98-107); CHOLESTEROL 155.64 mg/dL (0-200); GLUCOSE 79 mg/dL (75-110); POTASSIUM 5.5 mmol/L (3.6-5.0); SODIUM 136.2 mmol/L (137-145); TRIGLYCERIDES 116 mg/dL (<150)
[2018-07-30] MEDS ORDERED: METOPROLOL TARTRATE PF/INJ 5 MG/5 ML SDV IV ONE (08:40)
[2018-07-30] MEDS ORDERED: METOPROLOL SUCCINATE 50 MG TAB.SR.24H PO ONE (08:45)
[2018-07-30 08:46] LABS: DIRECT LDL 92 mg/dL (<100)
[2018-07-30] MEDS: FERROUS SULFATE 325 MG TABLET PO SCH (08:50)
[2018-07-30] MEDS: MULTIVITAMIN TABLET PO SCH (08:50)
[2018-07-30] MEDS: ASPIRIN 81 MG TABLET, CHEWABLE PO SCH (08:50)
[2018-07-30] MEDS: DOCUSATE SODIUM 100 MG CAPSULE PO SCH ×2 (08:50→18:04)
[2018-07-30] MEDS: FOLIC ACID 1 MG TABLET PO SCH (08:50)
[2018-07-30 08:52] LABS: FREE T3 2.82 pg/mL (2.77-5.27); FREE T4 (FREE THYROXINE) 1.37 ng/dL (0.78-2.19)
[2018-07-30 08:56] LABS: CALCIUM 6.9 mg/dL (8.4-10.2)
[2018-07-30 09:06] LABS: THYROID STIMULATING HORMONE 4.18 uIU/mL (0.47-4.68)
[2018-07-30] MEDS: PATIROMER 8.4 GM SUSP PACKET PO SCH (10:57)
[2018-07-30] MEDS ORDERED: MAGNESIUM SULFATE/D5W 1 GM/100 ML RTUPB IV ONE (11:30)
[2018-07-30] MEDS ORDERED: INSULIN REG, HUMAN 100 UNIT/ML 3 ML VIAL (PYX) IV ONE (11:30)
[2018-07-30] MEDS ORDERED: DEXTROSE 50%-WATER 25 GM/50 ML DISP.SYRIN IV ONE (11:30)
[2018-07-30] MEDS ORDERED: CALCIUM GLUCONATE 1000 MG/10 ML INJ IV ONE (11:30)
--- NOTE | 2018-07-30 13:01 | PDOC CONSULTATION ---
Consultation Consult Date: 07/30/18 Consult reason:: LUIS on CKD 3 , Severe hypocalcemia with tetany, Htyperkalemia History of Present Illness Admission Date/PCP: 07/29/18 00:11 KEE TELLES History of Present Illness: CHANELL MADRID is a 83 year old female With a complex past medical history that included CKD stage III with a base creatinine 1.8, hypertension, rheumatoid arthritis for which she has been on multiple medications in the past including methotrexate/Humira/Ritux,CAD, history of multiple cancers including active Ca of the lungs was admitted with history of symptomatic hypocalcemia and hyperkalemia of 6.3.She had an single labs done through my office which revealed these findings. 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 Evaluations in the ER revealed that she was having tetany. She was also found to be bradycardic with a rate of around 50. She was given appropriate treatments and there was a remarkable improvement while she was there. Her bradycardia improved and her blood pressure also did improve. She feels a whole lot better. She has normal neuropathy symptoms of her fingers. Be of any chest pain, shortness of breath or palpitations. No history of any profound muscle weakness. She has been continuing to get IV calcium replacements along with p.o. Latest calcium is 6.9 and potassium is 5.4. Her creatinine is not improved to 1.9 from yesterday's 2.5.Medications were reviewed. At one time she was diagnosed with renal osteodystrophy in my office and she was on p.o. calcitriol. Past Medical History Cardiac Medical History: Reports: Coronary Artery Disease, Hyperlipidemia, Hypertension-primary, Myocardial Infarction Denies: DVT, Pulmonary Embolism Pulmonary Medical History: Reports: Chronic Obstructive Pulmonary Disease (COPD) Denies: Asthma, Intubation, Respiratory Failure EENT Medical History: Reports: None Neurological Medical History: Denies: Hemorrhagic CVA, Ischemic CVA, Seizures Endocrine Medical History: Denies: Diabetes Mellitus Type 1, Diabetes Mellitus Type 2, Hyperthyroidism, Hypothyroidism Complications of Diabetes: Reports: None Renal/ Medical History: Reports: Chronic Kidney Disease Stage III Denies: Nephrolithiasis Malignancy Medical History: Reports: Breast Cancer, Cervical Cancer, Colorectal Cancer, Lung Cancer, Skin Cancer Denies: Renal (Kidney) Cancer GI Medical History: Denies: Cirrhosis, Hepatitis Musculoskeltal Medical History: Reports: Arthritis - Rheumatoid arthritis Denies: Gout Skin Medical History: Denies: Eczema, Psoriasis Psychiatric Medical History: Reports: Tobacco Dependency Denies: Alcohol Dependency, Depression, Substance Abuse Traumatic Medical History: Reports: None Infectious Medical History: Reports: None Hematology Medical History: Reports Anemia Past Surgical History Past Surgical History: Reports: Appendectomy, Cholecystectomy, Colectomy - - Partial, Coronary Artery Bypass Graft - x3, Hysterectomy Social History Lives with: Family Smoking Status: Former Smoker Frequency of Alcohol Use: Occasional Hx Recreational Drug Use: No Drugs: None Hx Prescription Drug Abuse: No - Advance Directive Resuscitation Status: Full Code Family History Parental Family History Reviewed: Yes - Negative for ESRD. Children Family History Reviewed: No Sibling(s) Family History Reviewed.: No Medication/Allergy Home Medications: Cyanocobalamin (Vitamin B-12) [Vitamin B-12 1000 Mcg Tablet] 1,000 mcg PO DAILY 07/29/18 Diltiazem HCl [Cardizem Cd 120 mg Capsule] 120 mg PO DAILY 07/29/18 Folic Acid [Folvite 1 mg Tablet] 1 mg PO DAILY 07/29/18 Metoprolol Succinate [Toprol Xl 50 mg Tab.sr] 50 mg PO DAILY 07/29/18 Nifedipine [Nifedipine ER] 30 mg PO BID 07/29/18 Pantoprazole Sodium [Protonix] 40 mg PO DAILY 07/29/18 Allergies/Adverse Reactions: quinine [Quinine] Adverse Reaction (Verified 07/28/18 17:20) thyroid problems Review of Systems Constitutional: PRESENT: anorexia, fatigue, weakness. ABSENT: fever(s), headache(s), night sweats Nose, Mouth, and Throat: ABSENT: mouth pain, sore throat Cardiovascular: ABSENT: dyspnea on exertion, edema, orthropnea, palpitations Respiratory: ABSENT: cough, dyspnea, hemoptysis Gastrointestinal: ABSENT: abdominal pain, diarrhea, dysphagia, heartburn, hematemesis, hematochezia, nausea, vomiting Genitourinary: ABSENT: dysuria, hematuria Musculoskeletal: ABSENT: back pain Integumentary: ABSENT: erythema, lesions, pruritus, rash Neurological: ABSENT: abnormal movements, abnormal speech, confusion, focal weakness Endocrine: ABSENT: polydipsia Hematologic/Lymphatic: ABSENT: easy bleeding, easy bruising, lymphadenopathy Physical Exam Vital Signs: Temp Pulse Resp BP Pulse Ox 99.1 F 129 H 18 148/83 H 94 07/30/18 08:02 07/30/18 08:02 07/30/18 08:02 07/30/18 08:02 07/30/18 08:02 Intake & Output 07/29/18 07/30/18 07/31/18 06:59 06:59 06:59 Intake Total 100 1240 Balance 100 1240 Weight 74.2 kg 78.8 kg General appearance: PRESENT: no acute distress Eye exam: PRESENT: conjunctiva pink, EOMI, PERRLA Mouth exam: PRESENT: neck supple. ABSENT: moist Neck exam: ABSENT: lymphadenopathy, meningismus, tenderness, thyromegaly, tr acheal deviation Respiratory exam: PRESENT: clear to auscultation anita. ABSENT: crackles, decreased breath sounds Cardiovascular exam: PRESENT: +S1, +S2 GI/Abdominal exam: PRESENT: normal bowel sounds, soft. ABSENT: organomegaly, tenderness Extremities exam: ABSENT: pedal edema Neurological exam: ABSENT: alert, awake, oriented to person, oriented to place Psychiatric exam: ABSENT: appropriate affect Skin exam: ABSENT: cyanosis, erythema, mottled, rash Results Laboratory Results: 07/30/18 07:27 07/30/18 07:27 07/30/18 07/30/18 07/30/18 07:27 07:27 07:27 WBC 7.7 RBC 3.36 L Hgb 10.3 L Hct 30.9 L MCV 92 MCH 30.5 MCHC 33.2 RDW 17.4 H Plt Count 231 Sodium 136.2 L Potassium 5.5 H Chloride 109 H Carbon Dioxide 21 L Anion Gap 6 BUN 33 H Creatinine 1.98 H Est GFR ( Amer) 29 L Est GFR (Non-Af Amer) 24 L Glucose 79 Calcium 6.9 L* Phosphorus Magnesium 1.3 L Triglycerides 116 Cholesterol 155.64 LDL Cholesterol Direct 92 VLDL Cholesterol 23.0 HDL Cholesterol 51 TSH 4.18 Free T4 1.37 Free T3 pg/mL 2.82 PTH Intact 07/30/18 07/30/18 10:53 10:53 WBC RBC Hgb Hct MCV MCH MCHC RDW Plt Count Sodium Potassium Chloride Carbon Dioxide Anion Gap BUN Creatinine Est GFR ( Amer) Est GFR (Non-Af Amer) Glucose Calcium Phosphorus 3.1 Magnesium Triglycerides Cholesterol LDL Cholesterol Direct VLDL Cholesterol HDL Cholesterol TSH Free T4 Free T3 pg/mL PTH Intact 1021.0 H 07/28/18 07/28/18 18:58 18:58 Creatine Kinase 49 CK-MB (CK-2) 0.99 Troponin I < 0.012 NT-Pro-B Natriuret Pep 9130 H Impressions: Chest X-Ray 07/28/18 17:44 IMPRESSION: 5 cm right lower lobe lung mass. Marked change since the earlier johnnie dias. Assessment & Plan - Diagnosis (1) Tetany Plan: Patient presents with symptomatic tetany from severe hypocalcemia.Along with the hyperkalemia that put her at significant cardiac risk. Thankfully she was treated at the neck of time in the ER and presently is in the more stable situation. She also had IV magnesium for hypomagnesemia that is also going to help calcium replacement. However she still has got mild to moderate hyperkalemia and significant hypercalcemia and therefore we will increase her calcium replacements. Monitor carefully. (2) Hypocalcemia Is this a current diagnosis for this admission?: Yes Plan: As mentioned earlier. (3) LUIS (acute kidney injury) Plan: His creatinine 1.8-2. Seems to be improving with correction of her dehydrated state. (4) Chronic kidney disease, stage 3 Plan: She has CKD stage III with a base creatinine around 1.8-2. Her AK I seems to be improving with fluid collection. Monitor. (5) Hyperkalemia Is this a current diagnosis for this admission?: Yes Plan: Continue on [place] for now. Advised proper dietary modifications. (6) Hypomagnesemia Plan: Initial IV replacements followed by p.o. replacements ongoing. Monitor.
[2018-07-30] MEDS ORDERED: MAGNESIUM OXIDE 400 MG TABLET PO SCH (18:00)
[2018-07-30] MEDS ORDERED: CALCIUM CARBONATE 500 MG TABLET PO SCH (18:00)
[2018-07-30] MEDS: CALCIUM CARBONATE 500 MG TABLET PO SCH (18:04)
[2018-07-30] MEDS ORDERED: METOPROLOL TARTRATE 100 MG TABLET PO ONE (18:30)
--- NOTE | 2018-07-30 19:12 | PDOC PROGRESS REPORT ---
Subjective Progress Note for:: 07/30/18 Subjective:: CHANELL MADRID is a 83 year old female who presented to the emergency room per her manager of change instruction for evaluation and treatment of an elevated potassium of 6.5 discovered on her routine nephrologic lab work drawn on the day of admission. Patient denies any and all symptoms related to her elevated potassium. She has been eating and drinking normally, her activity level has been normal and she denies recent changes in medication with the exception of the recent addition of a calcium channel mary (Cardizem). She was also told yesterday that she has stage IV lung cancer but has not started any therapy or other treatment for her newly diagnosed state. In the emergency room she was found to be bradycardic as well as hyperkalemic and hypocalcemic. These electrolytes were corrected in part during her ER stay which also seem to improve her cardiac rhythm. Overall she was judged to be significantly more medically stable and she was subsequently admitted hospital for further evaluation and treatment. 07/30/2018. No acute events overnight. However patient has been persistently in uncontrolled asymptomatic A. fib heart rate running 120s-170s. Her potassium is still persistently high and calcium was persistently low. Been having IV replacement of calcium magnesium and she is also receiving hyperkalemia protocol. She denies any generalized weakness, shortness of breath, fever, chills, nausea, vomiting, diarrhea or any constipation. She is p.o. tolerant and having normal bowel and bladder function. She has been receiving metoprolol p.o. and IV however her A. fib is not controlled hence she was transferred to [facility] to start on Cardizem drip. Reason For Visit: HYPERKALEMIA,HYPOCALEMIA Physical Exam Vital Signs: Temp Pulse Resp BP Pulse Ox 99.1 F 98 18 148/83 H 94 07/30/18 08:02 07/30/18 17:17 07/30/18 17:17 07/30/18 08:02 07/30/18 17:17 Intake & Output 07/29/18 07/30/18 07/31/18 06:59 06:59 06:59 Intake Total 100 1240 2060 Balance 100 1240 2060 Weight 74.2 kg 78.8 kg General appearance: PRESENT: no acute distress, well-developed, well-nourished Head exam: PRESENT: atraumatic, normocephalic Respiratory exam: PRESENT: clear to auscultation anita. ABSENT: rales, rhonchi, wheezes Cardiovascular exam: PRESENT: irregular rhythm, tachycardia Pulses: PRESENT: normal dorsalis pedis pul Extremities exam: PRESENT: full ROM. ABSENT: calf tenderness, clubbing, pedal edema Neurological exam: PRESENT: alert, awake, oriented to person, oriented to place, oriented to time, oriented to situation, CN II-XII grossly intact. ABSENT: motor sensory deficit Skin exam: PRESENT: dry, intact, warm. ABSENT: cyanosis, rash Results Laboratory Results: 07/30/18 07:27 07/30/18 07:27 07/30/18 07/30/18 07/30/18 07:27 07:27 07:27 WBC 7.7 RBC 3.36 L Hgb 10.3 L Hct 30.9 L MCV 92 MCH 30.5 MCHC 33.2 RDW 17.4 H Plt Count 231 Sodium 136.2 L Potassium 5.5 H Chloride 109 H Carbon Dioxide 21 L Anion Gap 6 BUN 33 H Creatinine 1.98 H Est GFR ( Amer) 29 L Est GFR (Non-Af Amer) 24 L Glucose 79 Calcium 6.9 L* Ionized Calcium Aubree Phosphorus Magnesium 1.3 L Triglycerides 116 Cholesterol 155.64 LDL Cholesterol Direct 92 VLDL Cholesterol 23.0 HDL Cholesterol 51 TSH 4.18 Free T4 1.37 Free T3 pg/mL 2.82 PTH Intact 07/30/18 07/30/18 07/30/18 10:53 10:53 15:54 WBC RBC Hgb Hct MCV MCH MCHC RDW Plt Count Sodium Potassium Chloride Carbon Dioxide Anion Gap BUN Creatinine Est GFR ( Amer) Est GFR (Non-Af Amer) Glucose Calcium Ionized Calcium Aubree 1.09 L Phosphorus 3.1 Magnesium Triglycerides Cholesterol LDL Cholesterol Direct VLDL Cholesterol HDL Cholesterol TSH Free T4 Free T3 pg/mL PTH Intact 1021.0 H 07/28/18 07/28/18 18:58 18:58 Creatine Kinase 49 CK-MB (CK-2) 0.99 Troponin I < 0.012 NT-Pro-B Natriuret Pep 9130 H Impressions: Chest X-Ray 07/28/18 17:44 IMPRESSION: 5 cm right lower lobe lung mass. Marked change since the earlier study. Assessment & Plan - Diagnosis (1) Hypocalcemia Is this a current diagnosis for this admission?: Yes Plan: Persistent hypercalcemia. Continue IV and p.o. replacement. BMP every 6 hours. Replace calcium as needed. (2) Atrial fibrillation Is this a current diagnosis for this admission?: No Plan: Not controlled. Continue beta-blockers. Transfer to [facility] for Cardizem drip. (4) Chronic kidney disease (CKD) Qualifiers: Chronic kidney disease stage: stage 3 (moderate) Qualified Code(s): N18.3 - Chronic kidney disease, stage 3 (moderate) Is this a current diagnosis for this admission?: Yes Plan: Stage III nonoliguric. Baseline creatinine 1.8-2. LUIS improving. Monitor electrolytes and volume status. Correct electrolytes as needed. (5) Hyperkalemia Is this a current diagnosis for this admission?: Yes Plan: Continue Veltassa, hyperkalemia protocol. BMP every 6 hours. Continue specimen transporter. (6) Hypomagnesemia Is this a current diagnosis for this admission?: Yes Plan: Replace as needed.
[2018-07-30 21:07] LABS: ANION GAP 7 (5-19); BLOOD UREA NITROGEN 32 mg/dL (7-20); CALCIUM 8.1 mg/dL (8.4-10.2); CARBON DIOXIDE 20 mmol/L (22-30); CHLORIDE 108 mmol/L (98-107); GLUCOSE 127 mg/dL (75-110); POTASSIUM 5.6 mmol/L (3.6-5.0); SODIUM 134.9 mmol/L (137-145)
[2018-07-30] MEDS: ATORVASTATIN CALCIUM 40 MG TABLET PO SCH (21:49)
[2018-07-30] MEDS: METOPROLOL TARTRATE 100 MG TABLET PO SCH (21:50)
[2018-07-30] MEDS: DILTIAZEM HCL/D5W 125 MG/125 ML RTUINJ IV PRN (22:59)
[2018-07-31] MEDS: LEVALBUTEROL HCL NEB 1.25 MG/3 ML AMPUL NEB SCH ×3 (00:55→16:09)
[2018-07-31] MEDS: IPRATROPIUM BROMIDE 0.02% NEB 0.5 MG/2.5 ML AMPUL NEB SCH ×3 (00:55→16:09)
[2018-07-31 02:44] LABS: ANION GAP 7 (5-19); BLOOD UREA NITROGEN 31 mg/dL (7-20); CALCIUM 8.1 mg/dL (8.4-10.2); CARBON DIOXIDE 20 mmol/L (22-30); CHLORIDE 108 mmol/L (98-107); GLUCOSE 130 mg/dL (75-110); POTASSIUM 5.2 mmol/L (3.6-5.0); SODIUM 135.4 mmol/L (137-145)
[2018-07-31 06:31] LABS: HEMATOCRIT 33.2 % (36.0-47.0); HEMOGLOBIN 10.8 g/dL (12.0-15.5); MEAN CORPUSCULAR HEMOGLOBIN 29.9 pg (27.0-33.4); MEAN CORPUSCULAR HGB CONC 32.6 g/dL (32.0-36.0); MEAN CORPUSCULAR VOLUME 92 fl (80-97); PLATELET COUNT 193 10^3/uL (150-450); RED BLOOD COUNT 3.62 10^6/uL (3.72-5.28); RED CELL DISTRIBUTION WIDTH 17.5 % (11.5-14.0); WHITE BLOOD COUNT 11.7 10^3/uL (4.0-10.5)
[2018-07-31 06:54] LABS: ANION GAP 7 (5-19); BLOOD UREA NITROGEN 30 mg/dL (7-20); CALCIUM 8.3 mg/dL (8.4-10.2); CARBON DIOXIDE 21 mmol/L (22-30); CHLORIDE 108 mmol/L (98-107); GLUCOSE 131 mg/dL (75-110); POTASSIUM 5.2 mmol/L (3.6-5.0); SODIUM 135.8 mmol/L (137-145)
[2018-07-31] MEDS: LANSOPRAZOLE 15 MG TAB.RAP.DR PO SCH (06:54)
[2018-07-31] MEDS: ALPRAZOLAM 0.5 MG TABLET PO SCH ×3 (06:54→22:13)
[2018-07-31] MEDS: HEPARIN SOD (PORCINE) 5,000 UNIT/ML 1 ML SYRINGE SUBCUT SCH ×3 (06:54→22:13)
[2018-07-31] MEDS ORDERED: DILTIAZEM HCL/D5W 125 MG/125 ML RTUINJ IV ONE (07:06)
[2018-07-31] MEDS: DILTIAZEM HCL/D5W 125 MG/125 ML RTUINJ IV PRN (07:17)
[2018-07-31] MEDS: BUDESONIDE NEB 0.5 MG/2 ML AMPUL NEB SCH ×2 (08:29→19:10)
[2018-07-31] MEDS ORDERED: MAGNESIUM SULFATE/D5W 1 GM/100 ML RTUPB IV ONE (09:39)
[2018-07-31] MEDS ORDERED: METOPROLOL SUCCINATE 50 MG TAB.SR.24H PO SCH (10:00)
[2018-07-31] MEDS ORDERED: CALCIUM GLUCONATE 1000 MG/10 ML INJ IV ONE (10:30)
[2018-07-31] MEDS: FERROUS SULFATE 325 MG TABLET PO SCH (11:27)
[2018-07-31] MEDS: MAGNESIUM OXIDE 400 MG TABLET PO SCH ×2 (11:27→18:25)
[2018-07-31] MEDS: MULTIVITAMIN TABLET PO SCH (11:27)
[2018-07-31] MEDS: CALCIUM CARBONATE 500 MG TABLET PO SCH ×2 (11:27→18:25)
[2018-07-31] MEDS: ASPIRIN 81 MG TABLET, CHEWABLE PO SCH (11:27)
[2018-07-31] MEDS: FOLIC ACID 1 MG TABLET PO SCH (11:27)
[2018-07-31] MEDS: DOCUSATE SODIUM 100 MG CAPSULE PO SCH ×2 (11:27→18:25)
[2018-07-31] MEDS: METOPROLOL TARTRATE 100 MG TABLET PO SCH ×2 (11:27→22:12)
[2018-07-31] MEDS: DILTIAZEM HCL 120 MG CAP.SR.24H PO SCH (11:28)
[2018-07-31] MEDS: PATIROMER 8.4 GM SUSP PACKET PO SCH (11:45)
--- NOTE | 2018-07-31 16:33 | PDOC PROGRESS REPORT ---
Subjective Progress Note for:: 07/31/18 Subjective:: CHANELL MADRID is a 83 year old female who presented to the emergency room per her candles pourer instruction for evaluation and treatment of an elevated potassium of 6.5 discovered on her routine nephrologic lab work drawn on the day of admission. Patient denies any and all symptoms related to her elevated potassium. She has been eating and drinking normally, her activity level has been normal and she denies recent changes in medication with the exception of the recent addition of a calcium channel mary (Cardizem). She was also told yesterday that she has stage IV lung cancer but has not started any therapy or other treatment for her newly diagnosed state. In the emergency room she was found to be bradycardic as well as hyperkalemic and hypocalcemic. These electrolytes were corrected in part during her ER stay which also seem to improve her cardiac rhythm. Overall she was judged to be significantly more medically stable and she was subsequently admitted hospital for further evaluation and treatment. 07/30/2018. No acute events overnight. However patient has been persistently in uncontrolled asymptomatic A. fib heart rate running 120s-170s. Her potassium is still persistently high and calcium was persistently low. Been having IV replacement of calcium magnesium and she is also receiving hyperkalemia protocol. She denies any generalized weakness, shortness of breath, fever, chills, nausea, vomiting, diarrhea or any constipation. She is p.o. tolerant and having normal bowel and bladder function. She has been receiving metoprolol p.o. and IV however her A. fib is not controlled hence she was transferred to [facility] to start on Cardizem drip. 07/31/2018. No acute events overnight. Patient is off of Cardizem drip. Heart rate better controlled. Patient denies any chest pain, shortness of breath, nausea, vomiting, diarrhea, constipation or any urinary symptoms. Patient is p.o. tolerant. Reason For Visit: HYPERKALEMIA,HYPOCALEMIA Physical Exam Vital Signs: Temp Pulse Resp BP Pulse Ox 97.8 F 66 18 121/89 H 99 07/31/18 10:51 07/31/18 14:00 07/31/18 10:51 07/31/18 10:51 07/31/18 10:51 Intake & Output 07/30/18 07/31/18 08/01/18 06:59 06:59 06:59 Intake Total 1240 2060 270 Output Total 800 Balance 1240 2060 -530 Weight 78.8 kg 76.4 kg General appearance: PRESENT: no acute distress, well-developed, well-nourished Head exam: PRESENT: atraumatic, normocephalic Respiratory exam: PRESENT: clear to auscultation anita. ABSENT: rales, rhonchi, wheezes Cardiovascular exam: PRESENT: RRR. ABSENT: diastolic murmur, rubs, systolic murmur GI/Abdominal exam: PRESENT: normal bowel sounds, soft. ABSENT: distended, guarding, mass, organolmegaly, rebound, tenderness Neurological exam: PRESENT: alert, awake, oriented to person, oriented to place, oriented to time, oriented to situation, CN II-XII grossly intact. ABSENT: motor sensory deficit Skin exam: PRESENT: dry, intact, warm. ABSENT: cyanosis, rash Results Laboratory Results: 07/31/18 06:10 07/31/18 06:10 07/30/18 07/31/18 07/31/18 20:05 02:15 06:10 WBC 11.7 H RBC 3.62 L Hgb 10.8 L Hct 33.2 L MCV 92 MCH 29.9 MCHC 32.6 RDW 17.5 H Plt Count 193 Sodium 134.9 L 135.4 L Potassium 5.6 H 5.2 H Chloride 108 H 108 H Carbon Dioxide 20 L 20 L Anion Gap 7 7 BUN 32 H 31 H Creatinine 1.91 H 1.90 H Est GFR ( Amer) 30 L 30 L Est GFR (Non-Af Amer) 25 L 25 L Glucose 127 H 130 H Calcium 8.1 L 8.1 L Magnesium 1.5 L 1.4 L 07/31/18 06:10 WBC RBC Hgb Hct MCV MCH MCHC RDW Plt Count Sodium 135.8 L Potassium 5.2 H Chloride 108 H Carbon Dioxide 21 L Anion Gap 7 BUN 30 H Creatinine 1.81 H Est GFR ( Amer) 32 L Est GFR (Non-Af Amer) 27 L Glucose 131 H Calcium 8.3 L Magnesium 1.4 L 07/28/18 07/28/18 18:58 18:58 Creatine Kinase 49 CK-MB (CK-2) 0.99 Troponin I < 0.012 NT-Pro-B Natriuret Pep 9130 H Impressions: Chest X-Ray 07/28/18 17:44 IMPRESSION: 5 cm right lower lobe lung mass. Marked change since the earlier study. Assessment & Plan - Diagnosis (1) Hypocalcemia Is this a current diagnosis for this admission?: Yes Plan: Improving. Continue IV and p.o. replacement. BMP every 6 hours. Replace calcium as needed. (2) Atrial fibrillation Is this a current diagnosis for this admission?: No Plan: Rate controlled. Continue p.o. Cardizem and beta-blockers. Monitor and correct electrolyte abnormalities. Off of Cardizem drip. (3) Chronic kidney disease (CKD) Qualifiers: Chronic kidney disease stage: stage 3 (moderate) Qualified Code(s): N18.3 - Chronic kidney disease, stage 3 (moderate) Is this a current diagnosis for this admission?: Yes Plan: Stage III nonoliguric. Baseline creatinine 1.8-2. LUIS improving. Monitor electrolytes and volume status. Correct electrolytes as needed. (4) Hyperkalemia Is this a current diagnosis for this admission?: Yes Plan: Continue Veltassa, hyperkalemia protocol. BMP every 6 hours. Continue monitoring engineer. (5) Hypomagnesemia Is this a current diagnosis for this admission?: Yes Plan: Replace as needed.
[2018-07-31 19:43] LABS: APPEARANCE,URINE CLEAR; BILIRUBIN,URINE NEGATIVE (NEGATIVE); COLOR,URINE YELLOW; GLUCOSE, URINE NEGATIVE (NEGATIVE); KETONES,URINE NEGATIVE (NEGATIVE); LEUKOCYTE ESTERASE,URINE TRACE (NEGATIVE); NITRITE,URINE NEGATIVE (NEGATIVE); PROTEIN,URINE 30 mg/dL (NEGATIVE); URINE SPECIFIC GRAVITY 1.011; UROBILINOGEN,URINE NEGATIVE mg/dL (<2.0)
--- NOTE | 2018-07-31 21:38 | EKG REPORT ---
SEVERITY:- ABNORMAL ECG - RIGHT BUNDLE BRANCH BLOCK ATRIAL FLUTTER, A-RATE 0 : Confirmed by: Sherrell Newton MD 31-Jul-2018 21:37:14
[2018-07-31] MEDS: ATORVASTATIN CALCIUM 40 MG TABLET PO SCH (22:12)
[2018-08-01] MEDS: IPRATROPIUM BROMIDE 0.02% NEB 0.5 MG/2.5 ML AMPUL NEB SCH ×3 (00:09→16:19)
[2018-08-01] MEDS: LEVALBUTEROL HCL NEB 1.25 MG/3 ML AMPUL NEB SCH ×3 (00:09→16:19)
[2018-08-01] MEDS: LANSOPRAZOLE 15 MG TAB.RAP.DR PO SCH (06:03)
[2018-08-01] MEDS: ALPRAZOLAM 0.5 MG TABLET PO SCH (06:03)
[2018-08-01] MEDS: HEPARIN SOD (PORCINE) 5,000 UNIT/ML 1 ML SYRINGE SUBCUT SCH ×3 (06:03→21:56)
[2018-08-01 06:33] LABS: HEMATOCRIT 33.3 % (36.0-47.0); HEMOGLOBIN 10.8 g/dL (12.0-15.5); MEAN CORPUSCULAR HEMOGLOBIN 30.1 pg (27.0-33.4); MEAN CORPUSCULAR HGB CONC 32.5 g/dL (32.0-36.0); MEAN CORPUSCULAR VOLUME 93 fl (80-97); PLATELET COUNT 181 10^3/uL (150-450); RED CELL DISTRIBUTION WIDTH 17.5 % (11.5-14.0)
[2018-08-01 07:09] LABS: ANION GAP 6 (5-19); BLOOD UREA NITROGEN 27 mg/dL (7-20); CALCIUM 9.4 mg/dL (8.4-10.2); CARBON DIOXIDE 24 mmol/L (22-30); CHLORIDE 106 mmol/L (98-107); GLUCOSE 107 mg/dL (75-110); POTASSIUM 5.8 mmol/L (3.6-5.0); SODIUM 136.3 mmol/L (137-145)
[2018-08-01] MEDS: BUDESONIDE NEB 0.5 MG/2 ML AMPUL NEB SCH ×2 (08:50→20:59)
--- NOTE | 2018-08-01 10:31 | RADIOLOGY REPORT (SQ) ---
EXAM DESCRIPTION: CHEST SINGLE VIEW COMPLETED DATE/TIME: 08/01/2018 10:01 am REASON FOR STUDY: SOB COMPARISON: Chest films 07/28/2018, 10/07/2017, 08/30/2017 EXAM PARAMETERS: NUMBER OF VIEWS: One view. TECHNIQUE: Single frontal radiographic view of the chest acquired. RADIATION DOSE: NA LIMITATIONS: None. FINDINGS: LUNGS AND PLEURA: 5 cm right lower lobe lung parenchymal mass. Trace fluid in the lateral costophrenic sulci. Mild pulmonary vascular congestion with few Evelin lines indicating interstitial edema. No pneumothorax MEDIASTINUM AND HILAR STRUCTURES: No masses. Contour normal. 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 HARDWARE: Clips right axilla OTHER: No other significant finding. 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
--- NOTE | 2018-08-01 10:33 | RADIOLOGY REPORT (SQ) ---
EXAM DESCRIPTION: CT HEAD WITHOUT COMPLETED DATE/TIME: 08/01/2018 9:58 am REASON FOR STUDY: AMS COMPARISON: CT brain 10/07/2017 TECHNIQUE: Axial images acquired through the brain without intravenous contrast. Images reviewed wi th bone, brain and subdural windows. Additional sagittal and coronal reconstructions were generated. Images stored on PACS. All CT scanners at this facility use dose modulation, iterative reconstruction, and/or weight based d osing when appropriate to reduce radiation dose to as low as reasonably achievable (ALARA). [facility]: Dose Right [facility]: CareDose [facility]: Dose Right [facility]: Teradose 4D [facility]: Smart Technologies RADIATION DOSE: CT Rad equipment meets quality standard of care and radiation dose reduction techniq ues were employed. CTDIvol: 55.2 mGy. DLP: 1084 mGy-cm. mGy. LIMITATIONS: None. FINDINGS: VENTRICLES: Normal size and contour. CEREBRUM: No CT evidence of acute large territory ischemic change, acute intracranial hemorrhage, mas s effect, or midline shift. Age-appropriate spotty low attenuation in the bifrontal and biparietal wh ite matter from chronic small vessel ischemic change. CEREBELLUM: No masses. No hemorrhage. No alteration of density. No evidence for acute infarction. EXTRAAXIAL SPACES: No fluid collections. No masses. ORBITS AND GLOBE: No intra- or extraconal masses. Normal contour of globe without masses. CALVARIUM: No fracture. PARANASAL SINUSES: Air-fluid level sphenoid sinus from sinusitis SOFT TISSUES: No mass or hematoma. OTHER: No other significant finding. IMPRESSION: No acute intracranial changes. Age-appropriate white matter disease. Air-fluid level sphenoid sinus from sinusitis EVIDENCE OF ACUTE STROKE: NO. COMMENT: Quality ID # [id number]: Final reports with documentation of one or more dose reduction techniques (e.g., Automated exposure control, adjustment of the mA and/or kV according to patient size, use of iterative reconstruction technique) TECHNICAL DOCUMENTATION: JOB ID: [id number] [place]- All Rights Reserved Reading location - IP/workstation name: [email or web address]
[2018-08-01 10:39] LABS: ABSOLUTE EOSINOPHILS # (AUTO) 0.2 10^3/uL (0.0-0.6); ABSOLUTE LYMPHOCYTES (AUTO) 2.1 10^3/uL (0.5-4.7); ABSOLUTE NEUT (AUTO) 12.5 10^3/uL (1.7-8.2); BASOPHILS % (AUTO) 0.2 % (0-2); EOSINOPHILS % (AUTO) 1.1 % (0-6); HEMATOCRIT 35.2 % (36.0-47.0); HEMOGLOBIN 11.3 g/dL (12.0-15.5); LYMPHOCYTES % (AUTO) 13.1 % (13-45); MEAN CORPUSCULAR HGB CONC 32.2 g/dL (32.0-36.0); MEAN CORPUSCULAR VOLUME 93 fl (80-97); MONOCYTES % (AUTO) 6.3 % (3-13); PLATELET COUNT 223 10^3/uL (150-450); RED BLOOD COUNT 3.78 10^6/uL (3.72-5.28); RED CELL DISTRIBUTION WIDTH 17.3 % (11.5-14.0); SEGMENTED NEUTROPHILS % (AUTO) 79.3 % (42-78); TOTAL CELLS COUNTED % (AUTO) 100 %; WHITE BLOOD COUNT 15.7 10^3/uL (4.0-10.5)
[2018-08-01] MEDS: PATIROMER 8.4 GM SUSP PACKET PO SCH (11:09)
[2018-08-01] MEDS: METOPROLOL TARTRATE 100 MG TABLET PO SCH ×2 (11:09→21:56)
[2018-08-01] MEDS: NICOTINE 14 MG/24 HR PATCH.TD24 TD SCH (11:09)
[2018-08-01] MEDS: ASPIRIN 81 MG TABLET, CHEWABLE PO SCH (11:09)
[2018-08-01] MEDS: FERROUS SULFATE 325 MG TABLET PO SCH (11:09)
[2018-08-01] MEDS: DOCUSATE SODIUM 100 MG CAPSULE PO SCH ×2 (11:09→17:59)
[2018-08-01] MEDS: MAGNESIUM OXIDE 400 MG TABLET PO SCH ×2 (11:10→17:58)
[2018-08-01] MEDS: CALCIUM CARBONATE 500 MG TABLET PO SCH ×2 (11:10→17:59)
[2018-08-01] MEDS: FOLIC ACID 1 MG TABLET PO SCH (11:10)
[2018-08-01] MEDS: MULTIVITAMIN TABLET PO SCH (11:10)
[2018-08-01] MEDS: DILTIAZEM HCL 120 MG CAP.SR.24H PO SCH (11:10)
[2018-08-01 11:11] LABS: ALANINE AMINOTRANSFERASE 29 U/L (9-52); ALBUMIN 3.7 g/dL (3.5-5.0); ALKALINE PHOSPHATASE 58 U/L (38-126); ANION GAP 6 (5-19); ASPARTATE AMINO TRANSFERASE 10 U/L (14-36); BILIRUBIN,DIRECT 0.2 mg/dL (0.0-0.4); BILIRUBIN,TOTAL 0.5 mg/dL (0.2-1.3); BLOOD UREA NITROGEN 26 mg/dL (7-20); CALCIUM 10.1 mg/dL (8.4-10.2); CARBON DIOXIDE 25 mmol/L (22-30); CHLORIDE 105 mmol/L (98-107); GLUCOSE 102 mg/dL (75-110); POTASSIUM 5.9 mmol/L (3.6-5.0); SODIUM 135.6 mmol/L (137-145)
[2018-08-01 11:27] LABS: ARTERIAL BLOOD BASE EXCESS -2.6 mmol/L; ARTERIAL BLOOD H2CO3 1.12 mmol/L (1.05-1.35); ARTERIAL BLOOD PCO2 37.3 mmHg (35-45); ARTERIAL BLOOD PH 7.39 (7.35-7.45); ARTERIAL BLOOD PO2 62.8 mmHg (80-100); ARTERIAL BLOOD TOTAL CO2 23.1 mmol/L (21-25)
[2018-08-01 11:28] LABS: ARTERIAL BLOOD FIO2 4L
[2018-08-01] MEDS ORDERED: FUROSEMIDE INJ/PF 40 MG/4 ML SDV IV ONE (11:41)
[2018-08-01] MEDS: CEFTRIAXONE 1 GM/D5W RTU 1 GM/50 ML RTUPB IV SCH (12:06)
--- NOTE | 2018-08-01 14:32 | PDOC PROGRESS REPORT ---
Subjective Progress Note for:: 08/01/18 Subjective:: CHANELL MADRID is a 83 year old female who presented to the emergency room per her rehabilitation program manager instruction for evaluation and treatment of an elevated potassium of 6.5 discovered on her routine nephrologic lab work drawn on the day of admission. Patient denies any and all symptoms related to her elevated potassium. She has been eating and drinking normally, her activity level has been normal and she denies recent changes in medication with the exception of the recent addition of a calcium channel mary (Cardizem). She was also told yesterday that she has stage IV lung cancer but has not started any therapy or other treatment for her newly diagnosed state. In the emergency room she was found to be bradycardic as well as hyperkalemic and hypocalcemic. These electrolytes were corrected in part during her ER stay which also seem to improve her cardiac rhythm. Overall she was judged to be significantly more medically stable and she was subsequently admitted hospital for further evaluation and treatment. 07/30/2018. No acute events overnight. However patient has been persistently in uncontrolled asymptomatic A. fib heart rate running 120s-170s. Her potassium is still persistently high and calcium was persistently low. Been having IV replacement of calcium magnesium and she is also receiving hyperkalemia protocol. She denies any generalized weakness, shortness of breath, fever, chills, nausea, vomiting, diarrhea or any constipation. She is p.o. tolerant and having normal bowel and bladder function. She has been receiving metoprolol p.o. and IV however her A. fib is not controlled hence she was transferred to [facility] to start on Cardizem drip. 07/31/2018. No acute events overnight. Patient is off of Cardizem drip. Heart rate better controlled. Patient denies any chest pain, shortness of breath, nausea, vomiting, diarrhea, constipation or any urinary symptoms. Patient is p.o. tolerant. 08/01/2018. Patient has been restless and agitated throughout the night and requiring more supplemental O2, on my encounter in the morning patient seemed lethargic, delirious but follows commands. CT head was done which was negative for any acute strokes. ABG showed mild hypoxemia. Repeat UA negative. Repeat CBC with leukocytosis, ammonia level less than 8. Reason For Visit: HYPERKALEMIA,HYPOCALEMIA Physical Exam Vital Signs: Temp Pulse Resp BP Pulse Ox 97.2 F 107 H 20 145/68 H 93 08/01/18 03:19 08/01/18 08:50 08/01/18 08:50 08/01/18 03:19 08/01/18 08:50 Intake & Output 07/31/18 08/01/18 08/02/18 06:59 06:59 06:59 Intake Total 2061 527 Output Total 1700 Balance 2060 -117 Weight 76.4 kg 67 kg Results Laboratory Results: 08/01/18 10:10 08/01/18 10:10 07/31/18 08/01/18 08/01/18 16:06 06:16 06:16 WBC 11.0 H RBC 3.60 L Hgb 10.8 L Hct 33.3 L MCV 93 MCH 30.1 MCHC 32.5 RDW 17.5 H Plt Count 181 Seg Neutrophils % Lymphocytes % Monocytes % Eosinophils % Basophils % Absolute Neutrophils Absolute Lymphocytes Absolute Monocytes Absolute Eosinophils Absolute Basophils Carbonic Acid HCO3/H2CO3 Ratio ABG pH ABG pCO2 ABG pO2 ABG HCO3 ABG O2 Saturation ABG Base Excess FiO2 Sodium 136.3 L Potassium 5.8 H Chloride 106 Carbon Dioxide 24 Anion Gap 6 BUN 27 H Creatinine 1.81 H Est GFR ( Amer) 32 L Est GFR (Non-Af Amer) 27 L Glucose 107 Calcium 9.4 Magnesium 1.8 Total Bilirubin AST ALT Alkaline Phosphatase Ammonia Total Protein Albumin Urine Color YELLOW Urine Appearance CLEAR Urine pH 6.0 Ur Specific [place] 1.011 Urine Protein 30 H Urine Glucose (UA) NEGATIVE Urine Ketones NEGATIVE Urine Blood NEGATIVE Urine Nitrite NEGATIVE Ur Leukocyte Esterase TRACE H Urine WBC (Auto) 7 Urine RBC (Auto) 1 08/01/18 08/01/18 08/01/18 10:10 10:10 10:10 WBC 15.7 H RBC 3.78 Hgb 11.3 L Hct 35.2 L MCV 93 MCH 30.0 MCHC 32.2 RDW 17.3 H Plt Count 223 Seg Neutrophils % 79.3 H Lymphocytes % 13.1 Monocytes % 6.3 Eosinophils % 1.1 Basophils % 0.2 Absolute Neutrophils 12.5 H Absolute Lymphocytes 2.1 Absolute Monocytes 1.0 Absolute Eosinophils 0.2 Absolute Basophils 0.0 Carbonic Acid HCO3/H2CO3 Ratio ABG pH ABG pCO2 ABG pO2 ABG HCO3 ABG O2 Saturation ABG Base Excess FiO2 Sodium 135.6 L Potassium 5.9 H Chloride 105 Carbon Dioxide 25 Anion Gap 6 BUN 26 H Creatinine 1.91 H Est GFR ( Amer) 30 L Est GFR (Non-Af Amer) 25 L Glucose 102 Calcium 10.1 Magnesium Total Bilirubin 0.5 AST 10 L ALT 29 Alkaline Phosphatase 58 Ammonia < 8.7 L Total Protein 6.0 L Albumin 3.7 Urine Color Urine Appearance Urine pH Ur Specific [place] Urine Protein Urine Glucose (UA) Urine Ketones Urine Blood Urine Nitrite Ur Leukocyte Esterase Urine WBC (Auto) Urine RBC (Auto) 08/01/18 10:40 WBC RBC Hgb Hct MCV MCH MCHC RDW Plt Count Seg Neutrophils % Lymphocytes % Monocytes % Eosinophils % Basophils % Absolute Neutrophils Absolute Lymphocytes Absolute Monocytes Absolute Eosinophils Absolute Basophils Carbonic Acid 1.12 HCO3/H2CO3 Ratio 19:1 ABG pH 7.39 ABG pCO2 37.3 ABG pO2 62.8 L ABG HCO3 22.0 ABG O2 Saturation 92.0 L ABG Base Excess -2.6 FiO2 4L Sodium Potassium Chloride Carbon Dioxide Anion Gap BUN Creatinine Est GFR ( Amer) Est GFR (Non-Af Amer) Glucose Calcium Magnesium Total Bilirubin AST ALT Alkaline Phosphatase Ammonia Total Protein Albumin Urine Color Urine Appearance Urine pH Ur Specific [place] Urine Protein Urine Glucose (UA) Urine Ketones Urine Blood Urine Nitrite Ur Leukocyte Esterase Urine WBC (Auto) Urine RBC (Auto) 07/28/18 07/28/18 18:58 18:58 Creatine Kinase 49 CK-MB (CK-2) 0.99 Troponin I < 0.012 NT-Pro-B Natriuret Pep 9130 H Impressions: Head CT 08/01/18 00:00 IMPRESSION: No acute intracranial changes. Age-appropriate white matter disease. Air-fluid level sphenoid sinus from sinusitis EVIDENCE OF ACUTE STROKE: NO. 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 Chest x-ray showed mild pulmonary edema. CBC with leukocytosis, no bandemia, blood gas PO2 62.8, pH 7.39 O2 saturation 92%. UA negative except for trace leukocyte esterase. Started on ceftriaxone, blood cultures, Lasix. Avoid benzos and anticholinergics. (2) Acute hypoxemic respiratory failure Is this a current diagnosis for this admission?: Yes Plan: Likely due to volume overload or early developing pneumonia. Start on empiric IV antibiotics ,IV Lasix, Strict in and out. Volume restriction. (3) Hypocalcemia Is this a current diagnosis for this admission?: Yes Plan: Resolved. CMP tomorrow. Continue daily calcium replacement. (4) Atrial fibrillation Is this a current diagnosis for this admission?: No Plan: Rate controlled. Switch to p.o. Cardizem. Continue beta-blockers. Monitor and correct electrolyte abnormalities. (5) Chronic kidney disease (CKD) Qualifiers: Chronic kidney disease stage: stage 3 (moderate) Qualified Code(s): N18.3 - Chronic kidney disease, stage 3 (moderate) Is this a current diagnosis for this admission?: Yes Plan: Stage III nonoliguric. Baseline creatinine 1.8-2. LUIS improving. Monitor electrolytes and volume status. Correct electrolytes as needed. (6) Hyperkalemia Is this a current diagnosis for this admission?: Yes Plan: Continue Veltassa, hyperkalemia protocol. BMP every 6 hours. Continue threat monitoring analyst. (7) Hypomagnesemia Is this a current diagnosis for this admission?: Yes Plan: Resolved. Continue daily p.o. magnesium replacement.
[2018-08-01 16:40] LABS: APPEARANCE,URINE SLIGHTLY-CLOUDY; BILIRUBIN,URINE NEGATIVE (NEGATIVE); COLOR,URINE YELLOW; GLUCOSE, URINE NEGATIVE (NEGATIVE); KETONES,URINE NEGATIVE (NEGATIVE); LEUKOCYTE ESTERASE,URINE SMALL (NEGATIVE); NITRITE,URINE NEGATIVE (NEGATIVE); PROTEIN,URINE 30 mg/dL (NEGATIVE); UROBILINOGEN,URINE NEGATIVE mg/dL (<2.0)
[2018-08-01] MEDS: FUROSEMIDE INJ/PF 20 MG/2 ML SDV IV SCH (21:56)
[2018-08-01] MEDS: ATORVASTATIN CALCIUM 40 MG TABLET PO SCH (21:56)
[2018-08-02] MEDS: LEVALBUTEROL HCL NEB 1.25 MG/3 ML AMPUL NEB SCH ×3 (00:56→17:07)
[2018-08-02] MEDS: IPRATROPIUM BROMIDE 0.02% NEB 0.5 MG/2.5 ML AMPUL NEB SCH ×3 (00:56→17:08)
[2018-08-02] MEDS: HEPARIN SOD (PORCINE) 5,000 UNIT/ML 1 ML SYRINGE SUBCUT SCH ×3 (05:41→22:09)
[2018-08-02] MEDS: LANSOPRAZOLE 15 MG TAB.RAP.DR PO SCH (05:50)
[2018-08-02 06:49] LABS: ABSOLUTE EOSINOPHILS # (AUTO) 0.1 10^3/uL (0.0-0.6); ABSOLUTE LYMPHOCYTES (AUTO) 1.4 10^3/uL (0.5-4.7); ABSOLUTE MONOCYTES (AUTO) 0.8 10^3/uL (0.1-1.4); BASOPHILS % (AUTO) 0.2 % (0-2); HEMATOCRIT 33.3 % (36.0-47.0); LYMPHOCYTES % (AUTO) 10.3 % (13-45); MEAN CORPUSCULAR HEMOGLOBIN 30.1 pg (27.0-33.4); MEAN CORPUSCULAR HGB CONC 33.1 g/dL (32.0-36.0); MEAN CORPUSCULAR VOLUME 91 fl (80-97); PLATELET COUNT 182 10^3/uL (150-450); RED BLOOD COUNT 3.65 10^6/uL (3.72-5.28); RED CELL DISTRIBUTION WIDTH 16.8 % (11.5-14.0); SEGMENTED NEUTROPHILS % (AUTO) 82.5 % (42-78); TOTAL CELLS COUNTED % (AUTO) 100 %; WHITE BLOOD COUNT 13.3 10^3/uL (4.0-10.5)
[2018-08-02 07:10] LABS: ALANINE AMINOTRANSFERASE 23 U/L (9-52); ALBUMIN 3.1 g/dL (3.5-5.0); ALKALINE PHOSPHATASE 47 U/L (38-126); ANION GAP 7 (5-19); ASPARTATE AMINO TRANSFERASE 8 U/L (14-36); BILIRUBIN,DIRECT 0.3 mg/dL (0.0-0.4); BILIRUBIN,TOTAL 0.6 mg/dL (0.2-1.3); BLOOD UREA NITROGEN 33 mg/dL (7-20); CALCIUM 10.3 mg/dL (8.4-10.2); CARBON DIOXIDE 25 mmol/L (22-30); CHLORIDE 103 mmol/L (98-107); GLUCOSE 117 mg/dL (75-110); SODIUM 134.8 mmol/L (137-145); TOTAL PROTEIN 5.3 g/dL (6.3-8.2)
[2018-08-02 07:19] LABS: POTASSIUM 6.1 mmol/L (3.6-5.0)
[2018-08-02 08:36] LABS: ARTERIAL BLOOD BASE EXCESS 2.2 mmol/L; ARTERIAL BLOOD H2CO3 1.24 mmol/L (1.05-1.35); ARTERIAL BLOOD HCO3 26.7 mmol/L (20-24); ARTERIAL BLOOD O2 SATURATION 96.3 % (94-98); ARTERIAL BLOOD PCO2 41.1 mmHg (35-45); ARTERIAL BLOOD PH 7.43 (7.35-7.45); ARTERIAL BLOOD PO2 81.3 mmHg (80-100)
[2018-08-02 08:40] LABS: ARTERIAL BLOOD FIO2 3.5L
[2018-08-02] MEDS: BUDESONIDE NEB 0.5 MG/2 ML AMPUL NEB SCH ×2 (08:59→21:18)
[2018-08-02] MEDS ORDERED: CALCIUM CARBONATE 500 MG TABLET PO SCH (10:00)
[2018-08-02] MEDS: DOCUSATE SODIUM 100 MG CAPSULE PO SCH ×2 (10:28→17:25)
[2018-08-02] MEDS: FERROUS SULFATE 325 MG TABLET PO SCH (10:28)
[2018-08-02] MEDS: DILTIAZEM HCL 120 MG CAP.SR.24H PO SCH (10:28)
[2018-08-02] MEDS: SODIUM POLYSTYRENE SULFONATE 15 GM/60 ML PO SCH ×3 (10:28→22:06)
[2018-08-02] MEDS: FOLIC ACID 1 MG TABLET PO SCH (10:28)
[2018-08-02] MEDS: METOPROLOL TARTRATE 100 MG TABLET PO SCH ×2 (10:28→22:08)
[2018-08-02] MEDS: ASPIRIN 81 MG TABLET, CHEWABLE PO SCH (10:28)
[2018-08-02] MEDS: MAGNESIUM OXIDE 400 MG TABLET PO SCH ×2 (10:28→17:24)
[2018-08-02] MEDS: MULTIVITAMIN TABLET PO SCH (10:29)
[2018-08-02] MEDS: NICOTINE 14 MG/24 HR PATCH.TD24 TD SCH (10:29)
[2018-08-02] MEDS: PATIROMER 8.4 GM SUSP PACKET PO SCH (10:29)
[2018-08-02] MEDS: FUROSEMIDE INJ/PF 20 MG/2 ML SDV IV SCH (10:52)
[2018-08-02] MEDS: CEFTRIAXONE 1 GM/D5W RTU 1 GM/50 ML RTUPB IV SCH (10:52)
--- NOTE | 2018-08-02 11:58 | PDOC PROGRESS REPORT ---
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 Patient denies any and all symptoms related to her elevated potassium. She has been eating and drinking normally, her activity level has been normal and she denies recent changes in medication with the exception of the recent addition of a calcium channel mary (Cardizem). She was also told yesterday that she has stage IV lung cancer but has not started any therapy or other treatment for her newly diagnosed state. In the emergency room she was found to be bradycardic as well as hyperkalemic and hypocalcemic. These electrolytes were corrected in part during her ER stay which also seem to improve her cardiac rhythm. Overall she was judged to be significantly more medically stable and she was subsequently admitted hospital for further evaluation and treatment. 07/30/2018. No acute events overnight. However patient has been persistently in uncontrolled asymptomatic A. fib heart rate running 120s-170s. Her potassium is still persistently high and calcium was persistently low. Been having IV replacement of calcium magnesium and she is also receiving hyperkalemia protocol. She denies any generalized weakness, shortness of breath, fever, chills, nausea, vomiting, diarrhea or any constipation. She is p.o. tolerant and having normal bowel and bladder function. She has been receiving metoprolol p.o. and IV however her A. fib is not controlled hence she was transferred to [facility] to start on Cardizem drip. 07/31/2018. No acute events overnight. Patient is off of Cardizem drip. Heart rate better controlled. Patient denies any chest pain, shortness of breath, nausea, vomiting, diarrhea, constipation or any urinary symptoms. Patient is p.o. tolerant. 08/01/2018. Patient has been restless and agitated throughout the night and requiring more supplemental O2, on my encounter in the morning patient seemed lethargic, delirious but follows commands. CT head was done which was negative for any acute strokes. ABG showed mild hypoxemia. Repeat UA negative. Repeat CBC with leukocytosis, ammonia level less than 8. 08/02/2018. Patient has been on and off delirious since yesterday. Her systolic blood pressure has been ranging from 110-159. This her oxygen demand has gone up from 2 L to 3.5 still saturating in the 90s. Balance is -1660. Blood cultures have been negative times 48 hours. She has been persistently hyperkalemic even though she has been taking her Veltassa and creatinine has been ranging from 2.69-1.97. On my examination patient is very lethargic but easily arousable, she is alert and oriented x2 and follows command. Reason For Visit: HYPERKALEMIA,HYPOCALEMIA Physical Exam Vital Signs: Temp Pulse Resp BP Pulse Ox 98.1 F 87 16 159/70 H 94 08/02/18 04:33 08/02/18 08:59 08/02/18 08:59 08/02/18 04:33 08/02/18 08:59 Intake & Output 08/01/18 08/02/18 08/03/18 06:59 06:59 06:59 Intake Total 527 440 Output Total 1700 2100 Balance -1173 -1660 Weight 67 kg 77.3 kg General appearance: PRESENT: mild distress Head exam: PRESENT: atraumatic, normocephalic Respiratory exam: PRESENT: clear to auscultation anita. ABSENT: rales, rhonchi, wheezes Cardiovascular exam: PRESENT: RRR. ABSENT: diastolic murmur, rubs, systolic murmur GI/Abdominal exam: PRESENT: normal bowel sounds, soft. ABSENT: distended, g uarding, mass, organolmegaly, rebound, tenderness Neurological exam: PRESENT: altered, oriented to place, CN II-XII grossly intact Skin exam: PRESENT: dry, intact, warm. ABSENT: cyanosis, rash Results Laboratory Results: 08/02/18 06:32 08/02/18 06:32 08/01/18 08/02/18 08/02/18 16:15 06:32 06:32 WBC 13.3 H RBC 3.65 L Hgb 11.0 L Hct 33.3 L MCV 91 MCH 30.1 MCHC 33.1 RDW 16.8 H Plt Count 182 Seg Neutrophils % 82.5 H Lymphocytes % 10.3 L Monocytes % 6.0 Eosinophils % 1.0 Basophils % 0.2 Absolute Neutrophils 11.0 H Absolute Lymphocytes 1.4 Absolute Monocytes 0.8 Absolute Eosinophils 0.1 Absolute Basophils 0.0 Carbonic Acid HCO3/H2CO3 Ratio ABG pH ABG pCO2 ABG pO2 ABG HCO3 ABG O2 Saturation ABG Base Excess FiO2 Sodium 134.8 L Potassium 6.1 H* Chloride 103 Carbon Dioxide 25 Anion Gap 7 BUN 33 H Creatinine 1.97 H Est GFR ( Amer) 29 L Est GFR (Non-Af Amer) 24 L Glucose 117 H Calcium 10.3 H Magnesium 1.8 Total Bilirubin 0.6 AST 8 L ALT 23 Alkaline Phosphatase 47 Total Protein 5.3 L Albumin 3.1 L Urine Color YELLOW Urine Appearance SLIGHTLY-CLOUDY Urine pH 6.0 Ur Specific Dennis 1.010 Urine Protein 30 H Urine Glucose (UA) NEGATIVE Urine Ketones NEGATIVE Urine Blood NEGATIVE Urine Nitrite NEGATIVE Ur Leukocyte Esterase SMALL H Urine WBC (Auto) 8 Urine RBC (Auto) 3 08/02/18 08:20 WBC RBC Hgb Hct MCV MCH MCHC RDW Plt Count Seg Neutrophils % Lymphocytes % Monocytes % Eosinophils % Basophils % Absolute Neutrophils Absolute Lymphocytes Absolute Monocytes Absolute Eosinophils Absolute Basophils Carbonic Acid 1.24 HCO3/H2CO3 Ratio 21:1 ABG pH 7.43 ABG pCO2 41.1 ABG pO2 81.3 ABG HCO3 26.7 H ABG O2 Saturation 96.3 ABG Base Excess 2.2 FiO2 3.5L Sodium Potassium Chloride Carbon Dioxide Anion Gap BUN Creatinine Est GFR ( Amer) Est GFR (Non-Af Amer) Glucose Calcium Magnesium Total Bilirubin AST ALT Alkaline Phosphatase Total Protein Albumin Urine Color Urine Appearance Urine pH Ur Specific Dennis Urine Protein Urine Glucose (UA) Urine Ketones Urine Blood Urine Nitrite Ur Leukocyte Esterase Urine WBC (Auto) Urine RBC (Auto) 07/28/18 07/28/18 18:58 18:58 Creatine Kinase 49 CK-MB (CK-2) 0.99 Troponin I < 0.012 NT-Pro-B Natriuret Pep 9130 H Impressions: Head CT 08/01/18 00:00 IMPRESSION: No acute intracranial changes. Age-appropriate white matter disease. Air-fluid level sphenoid sinus from sinusitis EVIDENCE OF ACUTE STROKE: NO. 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 08/01/2018 chest x-ray showed mild pulmonary edema. CBC with leukocytosis, no bandemia Repeat ABG on 08/02/2018 PO2 of 81.3. O2 sat of 96% UA negative except for trace leukocyte esterase. Started on ceftriaxone, blood cultures, Lasix. Avoid benzos and anticholinergics. (2) Acute hypoxemic respiratory failure Is this a current diagnosis for this admission?: Yes Plan: Likely due to volume overload or early developing pneumonia. Start on empiric IV antibiotics ,IV Lasix, Strict in and out. Volume restriction. (3) Hypocalcemia Is this a current diagnosis for this admission?: Yes Plan: She is actually hypercalcemic on today's lab. Will hold calcium replacement for today. CMP tomorrow. (4) Atrial fibrillation Is this a current diagnosis for this admission?: No Plan: Rate controlled. Continue Cardizem and beta-blockers. Monitor and correct electrolyte abnormalities. (5) Chronic kidney disease (CKD) Qualifiers: Chronic kidney disease stage: stage 3 (moderate) Qualified Code(s): N18.3 - Chronic kidney disease, stage 3 (moderate) Is this a current diagnosis for this admission?: Yes Plan: Stage III nonoliguric. Baseline creatinine 1.8-2. Creatinine is stable. Monitor electrolytes and volume status. Correct electrolytes as needed. (6) Hyperkalemia Is this a current diagnosis for this admission?: Yes Plan: Recently elevated even though she is on Veltassa, renal diet. Continue hyperkalemia protocol. Continue night monitor. Will consult nephrology for possible hemodialysis. (7) Hypomagnesemia Is this a current diagnosis for this admission?: Yes Plan: Resolved. Continue daily p.o. magnesium replacement.
[2018-08-02 13:38] LABS: ALANINE AMINOTRANSFERASE 21 U/L (9-52); ALBUMIN 2.9 g/dL (3.5-5.0); ALKALINE PHOSPHATASE 47 U/L (38-126); ASPARTATE AMINO TRANSFERASE 7 U/L (14-36); BILIRUBIN,DIRECT 0.2 mg/dL (0.0-0.4); BILIRUBIN,TOTAL 0.3 mg/dL (0.2-1.3); BLOOD UREA NITROGEN 32 mg/dL (7-20); CALCIUM 10.3 mg/dL (8.4-10.2); GLUCOSE 102 mg/dL (75-110); POTASSIUM 5.9 mmol/L (3.6-5.0); TOTAL PROTEIN 5.1 g/dL (6.3-8.2)
[2018-08-02 13:50] LABS: CARBON DIOXIDE 26 mmol/L (22-30); CHLORIDE 103 mmol/L (98-107); SODIUM 133.3 mmol/L (137-145)
[2018-08-02 13:56] LABS: ANION GAP 4 (5-19)
[2018-08-02] MEDS ORDERED: METOPROLOL TARTRATE PF/INJ 5 MG/5 ML SDV IV ONE (15:55)
[2018-08-02] MEDS: METOPROLOL TARTRATE PF/INJ 5 MG/5 ML SDV IV PRN ×2 (16:11→17:25)
[2018-08-02] MEDS ORDERED: NORMAL SALINE 250 ML IV ONE ×2 (16:15→17:15)
--- NOTE | 2018-08-02 19:10 | PDOC CONSULTATION ---
Consultation Consult Date: 08/02/18 Attending physician:: ELENITA SAHU Consult reason:: Patient with known history of cytopenias, ITP, anemia with recent diagnosis of stage IV lung cancer History of Present Illness Admission Date/PCP: 07/29/18 00:11 KEE TELLES Patient complains of: Weakness, confusion History of Present Illness: CHANELL MADRID is a 83 year old female well-known to our oncology clinic, with previous history of recurrent anemia as well as cytopenias, history of ITP, who recently was diagnosed with stage IV lung cancer. She recently went into [facility] for cardiac issues and was found on imaging to have an abnormality in the chest, ultimately this was followed by CT of the chest which indicated a 6 cm solid mass in the right lower lobe, 2.3 cm nodule in the left upper lobe, left pleural effusion, CT-guided biopsy of this area indicated squamous cell carcinoma of the lung, PET/CT indicated uptake in the right lower lobe, left upper lobe, but also in right retroperitoneal/retrocrural lymph nodes all indicating stage IV disease. She saw me last week, and we discussed that we would do further testing on the biopsy specimen and then decide on further treatment thereafter. However after leaving our office she went to see her plaster lather who found her kidney function worse as well as her potassium highly elevated, she was referred for admission and she has been admitted now for several days because of this. I was called by nursing this morning after she had a consult placed for me, and unfortunately she had become lethargic, confused and hypotensive. She is a bit better now. But still very confused and we had a long discussion today with family. Past Medical History Cardiac Medical History: Reports: Congestive Heart Failure - Diastolic dysfunction, Coronary Artery Disease, Myocardial Infarction, Hyperlipidema, Hypertension Denies: DVT, Pulmonary Embolism Pulmonary Medical History: Reports: Chronic Obstructive Pulmonary Disease (COPD) Denies: Asthma, Intubation, Respiratory Failure EENT Medical History: Reports: None Neurological Medical History: Denies: Hemorrhagic CVA, Ischemic CVA, Seizures Endocrine Medical History: Denies: Diabetes Mellitus Type 1, Diabetes Mellitus Type 2, Hyperthyroidism, Hypothyroidism Renal/ Medical History: Reports: Chronic Kidney Disease Denies: Nephrolithiasis Malignancy Medical History: Reports: Breast Cancer, Cervical Cancer, Colorectal Cancer, Lung Cancer, Skin Cancer Denies: Renal (Kidney) Cancer GI Medical History: Denies: Cirrhosis, Hepatitis Musculoskeltal Medical History: Reports: Arthritis - Rheumatoid arthritis Denies: Gout Skin Medical History: Denies: Eczema, Psoriasis Psychiatric Medical History: Reports: Tobacco Dependency Denies: Alcohol Dependency, Depression, Substance Abuse Traumatic Medical History: Reports: None Hematology: Reports: Anemia Denies: Bleeding Tendencies Infectious Medical History: Reports: None Past Surgical History Past Surgical History: Reports: Appendectomy, Cholecystectomy, Coronary Artery Bypass Graft - x3, Hysterectomy Social History Lives with: Family Smoking Status: Former Smoker Frequency of Alcohol Use: Occasional Hx Recreational Drug Use: No Drugs: None Hx Prescription Drug Abuse: No - Advance Directive Resuscitation Status: Do Not Resuscitate Family History Family History: Reviewed & Not Pertinent Parental Family History Reviewed: Yes Children Family History Reviewed: Yes Sibling(s) Family History Reviewed.: Yes Medication/Allergy Home Medications: Cyanocobalamin (Vitamin B-12) [Vitamin B-12 1000 Mcg Tablet] 1,000 mcg PO DAILY 07/29/18 Diltiazem HCl [Cardizem Cd 120 mg Capsule] 120 mg PO DAILY 07/29/18 Folic Acid [Folvite 1 mg Tablet] 1 mg PO DAILY 07/29/18 Metoprolol Succinate [Toprol Xl 50 mg Tab.sr] 50 mg PO DAILY 07/29/18 Nifedipine [Nifedipine ER] 30 mg PO BID 07/29/18 Pantoprazole Sodium [Protonix] 40 mg PO DAILY 07/29/18 Allergies/Adverse Reactions: quinine [Quinine] Adverse Reaction (Verified 07/28/18 17:20) thyroid problems Review of Systems ROS unobtainable: Due to mental status Physical Exam Vital Signs: Temp Pulse Resp BP Pulse Ox 97.5 F 90 30 H 85/41 L 97 08/02/18 17:14 08/02/18 17:14 08/02/18 17:14 08/02/18 17:14 08/02/18 17:14 Intake & Output 08/01/18 08/02/18 08/03/18 06:59 06:59 06:59 Intake Total 527 440 200 Output Total 1700 2100 1400 Balance -8642 -0216 -1200 Weight 67 kg 77.3 kg General appearance: PRESENT: no acute distress Head exam: PRESENT: atraumatic Mouth exam: PRESENT: dry mucosa Respiratory exam: PRESENT: clear to auscultation anita. ABSENT: rales, rhonchi, wheezes Cardiovascular exam: PRESENT: tachycardia GI/Abdominal exam: PRESENT: normal bowel sounds, soft. ABSENT: distended, guarding, mass, organolmegaly, rebound, tenderness Neurological exam: PRESENT: altered Psychiatric exam: PRESENT: depressed, flat affect Results Laboratory Results: 08/02/18 06:32 08/02/18 13:13 08/02/18 08/02/18 08/02/18 06:32 06:32 08:20 WBC 13.3 H RBC 3.65 L Hgb 11.0 L Hct 33.3 L MCV 91 MCH 30.1 MCHC 33.1 RDW 16.8 H Plt Count 182 Seg Neutrophils % 82.5 H Lymphocytes % 10.3 L Monocytes % 6.0 Eosinophils % 1.0 Basophils % 0.2 Absolute Neutrophils 11.0 H Absolute Lymphocytes 1.4 Absolute Monocytes 0.8 Absolute Eosinophils 0.1 Absolute Basophils 0.0 Carbonic Acid 1.24 HCO3/H2CO3 Ratio 21:1 ABG pH 7.43 ABG pCO2 41.1 ABG pO2 81.3 ABG HCO3 26.7 H ABG O2 Saturation 96.3 ABG Base Excess 2.2 FiO2 3.5L Sodium 134.8 L Potassium 6.1 H* Chloride 103 Carbon Dioxide 25 Anion Gap 7 BUN 33 H Creatinine 1.97 H Est GFR ( Amer) 29 L Est GFR (Non-Af Amer) 24 L Glucose 117 H Calcium 10.3 H Magnesium 1.8 Total Bilirubin 0.6 AST 8 L ALT 23 Alkaline Phosphatase 47 Total Protein 5.3 L Albumin 3.1 L 08/02/18 13:13 WBC RBC Hgb Hct MCV MCH MCHC RDW Plt Count Seg Neutrophils % Lymphocytes % Monocytes % Eosinophils % Basophils % Absolute Neutrophils Absolute Lymphocytes Absolute Monocytes Absolute Eosinophils Absolute Basophils Carbonic Acid HCO3/H2CO3 Ratio ABG pH ABG pCO2 ABG pO2 ABG HCO3 ABG O2 Saturation ABG Base Excess FiO2 Sodium 133.3 L Potassium 5.9 H Chloride 103 Carbon Dioxide 26 Anion Gap 4 L BUN 32 H Creatinine 1.87 H Est GFR ( Amer) 31 L Est GFR (Non-Af Amer) 26 L Glucose 102 Calcium 10.3 H Magnesium Total Bilirubin 0.3 AST 7 L ALT 21 Alkaline Phosphatase 47 Total Protein 5.1 L Albumin 2.9 L 07/28/18 07/28/18 18:58 18:58 Creatine Kinase 49 CK-MB (CK-2) 0.99 Troponin I < 0.012 NT-Pro-B Natriuret Pep 9130 H Impressions: Head CT 08/01/18 00:00 IMPRESSION: No acute intracranial changes. Age-appropriate white matter disease. Air-fluid level sphenoid sinus from sinusitis EVIDENCE OF ACUTE STROKE: NO. 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 Her lung cancer also is probably affecting her ability to eat which has worsened her kidney function as well as potassium levels, also is playing into dementia/delirium, this will not get better. We discussed that we should consider comfort care and hospice. They have agreed to this, I will get [facility] hosp[facility] come see her. They will see her tomorrow at 10:30 AM, and thereafter if family is agreeable and we can get the equipment set up at home she can discharge home on hospice. However it may be the next day before this can happen. - Time Time Spent: Greater than 70 Minutes - Inpatient Certification Based on my medical assessment, after consideration of the patient's comorbidities, presenting symptoms, or acuity I expect that the services needed warrant INPATIENT care.: Yes I certify that my determination is in accordance with my understanding of [facility]'s requirements for reasonable and necessary INPATIENT services [42 CFR 412.3e].: Yes Medical Necessity: Need For IV Fluids, Need For Continuous Telemetry Monitoring, Risk of Complication if Not Cared For in Hospital
--- NOTE | 2018-08-02 19:27 | PDOC PROGRESS REPORT ---
Subjective Progress Note for:: 08/02/18 Subjective:: Patient was admitted last week for tetany due to severe hypocalcemia associated with hypomagnesemia. She also had hyperkalemia in a patient with baseline chronic kidney disease stage III. She was also just recently diagnosed with stage IV metastatic lung cancer last week a day prior to presentation in the emergency room. Patient was noted to be lethargic since last night until this morning. Her potassium has also been elevated for the last couple of days. The lowest potassium she had was a 5.2 but then restart going up again and this morning it was 6.1 despite giving patient Lasix and Patoromer. Since the patient is not awake enough they cannot even give her potato more this morning. She was started on furosemide last night and she seems to be responding with adequate amount of urine output. She made about 2100 mL of urine output yesterday and today so far she has made about 1400 mL for 2 shifts. In terms of the calcium level her calcium is actually elevated now. There is no note of any more tetany or muscle spasms. Clinic come in the room patient was just sleeping. At bedside is her daughter and her [id number]. Thursday started to wake the patient up she actually open her eyes and started responding to some questions. She tells me that she just did not get enough sleep last night so she is sleepy. She answers all questions. She is not quite oriented to person. When I asked her if she would go on dialysis if needed for any reason she said she would. I then ask her regarding CODE STATUS as to what she wants us to do just in case of cardiac arrest and she repeatedly say that she does not want any resuscitation nor any intubation. The daughter at bedside understood and agreed. While talking to the patient the patient's and other daughters came in. I spoke to the regarding the patient's decision regarding CODE STATUS and he did not object to the patient's decision. So we will respect her wishes and change her CODE STATUS to DO NOT RESUSCITATE. Reason For Visit: HYPERKALEMIA,HYPOCALEMIA Physical Exam Vital Signs: Temp Pulse Resp BP Pulse Ox 97.5 F 90 30 H 85/41 L 97 08/02/18 17:14 08/02/18 17:14 08/02/18 17:14 08/02/18 17:14 08/02/18 17:14 Intake & Output 08/01/18 08/02/18 08/03/18 06:59 06:59 06:59 Intake Total 527 440 200 Output Total 1700 2100 1400 Balance -1173 1660 -1200 Weight 67 kg 77.3 kg Exam: General appearance: PRESENT: no acute distress, lethargic but arousable and answers questions when prompted Head exam: PRESENT: atraumatic, normocephalic Eye exam: PRESENT: conjunctiva pale, PERRLA. ABSENT: scleral icterus Neck exam: ABSENT: JVD Respiratory exam: PRESENT: Normal breath sounds. ABSENT: crackles, rales, rhon chi, unlabored, wheezes Cardiovascular exam: PRESENT: Regular rate rhythm -+S1, +S2. ABSENT: diastolic murmur, systolic murmur GI/Abdominal exam: PRESENT: normal bowel sounds, soft. ABSENT: guarding, mass, tenderness Extremities exam: ABSENT: No edema Neurological exam: PRESENT: alert, awake, oriented to person but not to place or time. Skin exam: PRESENT: dry, warm, Cardiovascular exam: PRESENT: +S1, +S2 GI/Abdominal exam: PRESENT: normal bowel sounds, soft. ABSENT: organomegaly, tenderness Results Laboratory Results: 08/02/18 06:32 08/02/18 13:13 08/02/18 08/02/18 08/02/18 06:32 06:32 08:20 WBC 13.3 H RBC 3.65 L Hgb 11.0 L Hct 33.3 L MCV 91 MCH 30.1 MCHC 33.1 RDW 16.8 H Plt Count 182 Seg Neutrophils % 82.5 H Lymphocytes % 10.3 L Monocytes % 6.0 Eosinophils % 1.0 Basophils % 0.2 Absolute Neutrophils 11.0 H Absolute Lymphocytes 1.4 Absolute Monocytes 0.8 Absolute Eosinophils 0.1 Absolute Basophils 0.0 Carbonic Acid 1.24 HCO3/H2CO3 Ratio 21:1 ABG pH 7.43 ABG pCO2 41.1 ABG pO2 81.3 ABG HCO3 26.7 H ABG O2 Saturation 96.3 ABG Base Excess 2.2 FiO2 3.5L Sodium 134.8 L Potassium 6.1 H* Chloride 103 Carbon Dioxide 25 Anion Gap 7 BUN 33 H Creatinine 1.97 H Est GFR ( Amer) 29 L Est GFR (Non-Af Amer) 24 L Glucose 117 H Calcium 10.3 H Magnesium 1.8 Total Bilirubin 0.6 AST 8 L ALT 23 Alkaline Phosphatase 47 Total Protein 5.3 L Albumin 3.1 L 08/02/18 13:13 WBC RBC Hgb Hct MCV MCH MCHC RDW Plt Count Seg Neutrophils % Lymphocytes % Monocytes % Eosinophils % Basophils % Absolute Neutrophils Absolute Lymphocytes Absolute Monocytes Absolute Eosinophils Absolute Basophils Carbonic Acid HCO3/H2CO3 Ratio ABG pH ABG pCO2 ABG pO2 ABG HCO3 ABG O2 Saturation ABG Base Excess FiO2 Sodium 133.3 L Potassium 5.9 H Chloride 103 Carbon Dioxide 26 Anion Gap 4 L BUN 32 H Creatinine 1.87 H Est GFR ( Amer) 31 L Est GFR (Non-Af Amer) 26 L Glucose 102 Calcium 10.3 H Magnesium Total Bilirubin 0.3 AST 7 L ALT 21 Alkaline Phosphatase 47 Total Protein 5.1 L Albumin 2.9 L 07/28/18 07/28/18 18:58 18:58 Creatine Kinase 49 CK-MB (CK-2) 0.99 Troponin I < 0.012 NT-Pro-B Natriuret Pep 9130 H Impressions: Head CT 08/01/18 00:00 IMPRESSION: No acute intracranial changes. Age-appropriate white matter disease. Air-fluid level sphenoid sinus from sinusitis EVIDENCE OF ACUTE STROKE: NO. 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 Potassium came out to be 5.9. I recommend medical management rather than hemodialysis in this case. I explained to the patient and the daughter and [id number] at bedside that due to the patient's other comorbid conditions I am not sure that patient can even tolerate dialysis at this time and he agreed. Aside from chronic kidney disease there is some medications that can contribute to hyperkalemia including heparin and metoprolol. However we can adjust This medication since the patient needed. Patient was ordered Kayexalate every 6 hours once the patient is able to swallow. Continue the same and discontinue patiromer while taking the Kayexalate. Continue low-dose Lasix as well. Continue to monitor. (2) Chronic kidney disease, stage 3 Is this a current diagnosis for this admission?: Yes Plan: Kidney function is actually stable at her baseline. I do not think her mental status changes this is due to uremia at this level of her kidney function. T here is really no indication for initiation of renal replacement therapy at this time. (3) Acute encephalopathy Is this a current diagnosis for this admission?: Yes Plan: CT scan negative for any acute changes. This is not due to uremia. (4) Hypocalcemia Is this a current diagnosis for this admission?: Yes Plan: This is resolved with replacements and in fact currently the patient's calcium is relatively elevated. Discontinue all calcium supplements at this time. Monitor calcium level. (5) Lung cancer Qualifiers: Qualified Code(s): C34.91 - Malignant neoplasm of unspecified part of right bronchus or lung Is this a current diagnosis for this admission?: Yes Plan: Metastatic stage IV. Patient is being followed by Dr. Cruz as an outpatient. - Time Time with patient: Greater than 35 minutes
[2018-08-02] MEDS: ATORVASTATIN CALCIUM 40 MG TABLET PO SCH (22:08)
[2018-08-03] MEDS: METOPROLOL TARTRATE PF/INJ 5 MG/5 ML SDV IV PRN ×2 (00:18→04:24)
[2018-08-03] MEDS: LEVALBUTEROL HCL NEB 1.25 MG/3 ML AMPUL NEB SCH ×2 (01:07→09:34)
[2018-08-03] MEDS: IPRATROPIUM BROMIDE 0.02% NEB 0.5 MG/2.5 ML AMPUL NEB SCH ×2 (01:07→09:34)
[2018-08-03] MEDS: SODIUM POLYSTYRENE SULFONATE 15 GM/60 ML PO SCH (02:20)
[2018-08-03] MEDS: LANSOPRAZOLE 15 MG TAB.RAP.DR PO SCH (05:02)
[2018-08-03] MEDS: HEPARIN SOD (PORCINE) 5,000 UNIT/ML 1 ML SYRINGE SUBCUT SCH ×2 (05:02→14:18)
[2018-08-03 06:31] LABS: ABSOLUTE EOSINOPHILS # (AUTO) 0.2 10^3/uL (0.0-0.6); ABSOLUTE LYMPHOCYTES (AUTO) 1.7 10^3/uL (0.5-4.7); ABSOLUTE MONOCYTES (AUTO) 0.7 10^3/uL (0.1-1.4); ABSOLUTE NEUT (AUTO) 5.7 10^3/uL (1.7-8.2); BASOPHILS % (AUTO) 0.2 % (0-2); EOSINOPHILS % (AUTO) 2.3 % (0-6); HEMATOCRIT 31.8 % (36.0-47.0); HEMOGLOBIN 10.7 g/dL (12.0-15.5); LYMPHOCYTES % (AUTO) 20.7 % (13-45); MEAN CORPUSCULAR HEMOGLOBIN 30.8 pg (27.0-33.4); MEAN CORPUSCULAR HGB CONC 33.8 g/dL (32.0-36.0); MEAN CORPUSCULAR VOLUME 91 fl (80-97); MONOCYTES % (AUTO) 8.4 % (3-13); PLATELET COUNT 174 10^3/uL (150-450); RED BLOOD COUNT 3.49 10^6/uL (3.72-5.28); RED CELL DISTRIBUTION WIDTH 16.6 % (11.5-14.0); SEGMENTED NEUTROPHILS % (AUTO) 68.4 % (42-78); TOTAL CELLS COUNTED % (AUTO) 100 %; WHITE BLOOD COUNT 8.3 10^3/uL (4.0-10.5)
[2018-08-03 06:52] LABS: ALANINE AMINOTRANSFERASE 21 U/L (9-52); ALBUMIN 2.8 g/dL (3.5-5.0); ALKALINE PHOSPHATASE 43 U/L (38-126); ANION GAP 8 (5-19); ASPARTATE AMINO TRANSFERASE 8 U/L (14-36); BILIRUBIN,DIRECT 0.3 mg/dL (0.0-0.4); BILIRUBIN,TOTAL 0.4 mg/dL (0.2-1.3); BLOOD UREA NITROGEN 32 mg/dL (7-20); CALCIUM 9.2 mg/dL (8.4-10.2); CARBON DIOXIDE 24 mmol/L (22-30); CHLORIDE 105 mmol/L (98-107); GLUCOSE 96 mg/dL (75-110); POTASSIUM 5.3 mmol/L (3.6-5.0); SODIUM 136.8 mmol/L (137-145); TOTAL PROTEIN 4.9 g/dL (6.3-8.2)
--- NOTE | 2018-08-03 08:49 | PDOC PROGRESS REPORT ---
Subjective Progress Note for:: 08/03/18 Subjective:: Patient more alert and oriented this morning. Seems better. Reason For Visit: HYPERKALEMIA,HYPOCALEMIA Physical Exam Vital Signs: Temp Pulse Resp BP Pulse Ox 98.9 F 126 H 20 103/62 94 08/03/18 03:18 08/03/18 07:00 08/03/18 03:18 08/03/18 03:18 08/03/18 03:18 Intake & Output 08/02/18 08/03/18 08/04/18 06:59 06:59 06:59 Intake Total 440 700 Output Total 2100 1900 Balance -1660 -1200 Weight 77.3 kg 77.9 kg General appearance: PRESENT: no acute distress, well-developed, well-nourished Head exam: PRESENT: atraumatic, normocephalic Eye exam: PRESENT: conjunctiva pink, EOMI, PERRLA. ABSENT: scleral icterus Ear exam: PRESENT: normal external ear exam Mouth exam: PRESENT: moist, tongue midline Neck exam: ABSENT: carotid bruit, JVD, lymphadenopathy, thyromegaly Respiratory exam: PRESENT: clear to auscultation anita. ABSENT: rales, rhonchi, wheezes Cardiovascular exam: PRESENT: RRR. ABSENT: diastolic murmur, rubs, systolic murmur Pulses: PRESENT: normal dorsalis pedis pul Vascular exam: PRESENT: normal capillary refill GI/Abdominal exam: PRESENT: normal bowel sounds, soft. ABSENT: distended, guarding, mass, organolmegaly, rebound, tenderness Rectal exam: PRESENT: deferred Extremities exam: PRESENT: full ROM. ABSENT: calf tenderness, clubbing, pedal edema Neurological exam: PRESENT: alert, awake, oriented to person, oriented to place, oriented to time, oriented to situation, CN II-XII grossly intact. ABSENT: motor sensory deficit Psychiatric exam: PRESENT: appropriate affect, normal mood. ABSENT: homicidal ideation, suicidal ideation Skin exam: PRESENT: dry, intact, warm. ABSENT: cyanosis, rash Results Laboratory Results: 08/03/18 05:44 08/03/18 05:44 08/02/18 08/03/18 08/03/18 13:13 05:44 05:44 WBC 8.3 RBC 3.49 L Hgb 10.7 L Hct 31.8 L MCV 91 MCH 30.8 MCHC 33.8 RDW 16.6 H Plt Count 174 Seg Neutrophils % 68.4 Lymphocytes % 20.7 Monocytes % 8.4 Eosinophils % 2.3 Basophils % 0.2 Absolute Neutrophils 5.7 Absolute Lymphocytes 1.7 Absolute Monocytes 0.7 Absolute Eosinophils 0.2 Absolute Basophils 0.0 Sodium 133.3 L 136.8 L Potassium 5.9 H 5.3 H Chloride 103 105 Carbon Dioxide 26 24 Anion Gap 4 L 8 BUN 32 H 32 H Creatinine 1.87 H 1.88 H Est GFR ( Amer) 31 L 31 L Est GFR (Non-Af Amer) 26 L 25 L Glucose 102 96 Calcium 10.3 H 9.2 Magnesium 2.0 Total Bilirubin 0.3 0.4 AST 7 L 8 L ALT 21 21 Alkaline Phosphatase 47 43 Total Protein 5.1 L 4.9 L Albumin 2.9 L 2.8 L 07/28/18 07/28/18 18:58 18:58 Creatine Kinase 49 CK-MB (CK-2) 0.99 Troponin I < 0.012 NT-Pro-B Natriuret Pep 9130 H Impressions: Head CT 08/01/18 00:00 IMPRESSION: No acute intracranial changes. Age-appropriate white matter disease. Air-fluid level sphenoid sinus from sinusitis EVIDENCE OF ACUTE STROKE: NO. 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 - Time Time Spent with patient: 35 or more minutes Anticipated discharge: Home, Hospice Within: within 24 hours - Inpatient Certification Based on my medical assessment, after consideration of the patient's comorbidities, presenting symptoms, or acuity I expect that the services needed warrant INPATIENT care.: Yes I certify that my determination is in accordance with my understanding of Medicare's requirements for reasonable and necessary INPATIENT services [42 CFR 412.3e].: Yes Medical Necessity: Need For Continuous Telemetry Monitoring, Need for Nebulizer Therapy and Monitoring of Response, Risk of Complication if Not Cared For in Hospital
[2018-08-03] MEDS: BUDESONIDE NEB 0.5 MG/2 ML AMPUL NEB SCH (09:34)
[2018-08-03] MEDS: CEFTRIAXONE 1 GM/D5W RTU 1 GM/50 ML RTUPB IV SCH (09:53)
[2018-08-03] MEDS: MAGNESIUM OXIDE 400 MG TABLET PO SCH (09:57)
[2018-08-03] MEDS: METOPROLOL TARTRATE 100 MG TABLET PO SCH (09:57)
[2018-08-03] MEDS: ASPIRIN 81 MG TABLET, CHEWABLE PO SCH (09:57)
[2018-08-03] MEDS: DILTIAZEM HCL 120 MG CAP.SR.24H PO SCH (09:57)
[2018-08-03 10:02] VITALS: BP 121/68
[2018-08-03] MEDS: FERROUS SULFATE 325 MG TABLET PO SCH (10:04)
[2018-08-03] MEDS: DOCUSATE SODIUM 100 MG CAPSULE PO SCH (10:04)
[2018-08-03] MEDS: FOLIC ACID 1 MG TABLET PO SCH (10:04)
[2018-08-03] MEDS: NICOTINE 14 MG/24 HR PATCH.TD24 TD SCH (10:05)
[2018-08-03] MEDS: MULTIVITAMIN TABLET PO SCH (10:05)
--- NOTE | 2018-08-06 05:50 | PDOC DISCHARGE SUMMARY ---
General - Admit/Disc Date/PCP Admission Date/Primary Care Provider: 07/29/18 00:11 KEE TELLES Discharge Date: 08/03/18 - Discharge Diagnosis (1) Acute encephalopathy Is this a current diagnosis for this admission?: Yes (2) Acute hypoxemic respiratory failure Is this a current diagnosis for this admission?: Yes (3) Lung cancer Is this a current diagnosis for this admission?: Yes (4) Hypocalcemia Is this a current diagnosis for this admission?: Yes (5) Atrial fibrillation Is this a current diagnosis for this admission?: No (6) Chronic kidney disease (CKD) Is this a current diagnosis for this admission?: Yes (7) Hyperkalemia Is this a current diagnosis for this admission?: Yes (8) Hypomagnesemia Is this a current diagnosis for this admission?: Yes - Additional Information Resuscitation Status: Do Not Resuscitate Discharge Diet: As Tolerated Discharge Activity: Activity As Tolerated Home Medications: Cyanocobalamin (Vitamin B-12) [Vitamin B-12 1000 Mcg Tablet] 1,000 mcg PO DAILY 07/29/18 Diltiazem HCl [Cardizem Cd 120 mg Capsule] 120 mg PO DAILY 07/29/18 Folic Acid [Folvite 1 mg Tablet] 1 mg PO DAILY 07/29/18 Metoprolol Succinate [Toprol Xl 50 mg Tab.sr] 50 mg PO DAILY 07/29/18 Nifedipine [Nifedipine ER] 30 mg PO BID 07/29/18 Pantoprazole Sodium [Protonix] 40 mg PO DAILY 07/29/18 History of Present Illness History of Present Illness: CHANELL MADRID is a 83 year old female who presented to the emergency room per her care aid instruction for evaluation and treatment of an elevated potassium of 6.5 discovered on her routine nephrologic lab work drawn on the day of admission. Patient denies any and all symptoms related to her elevated potassium. She has been eating and drinking normally, her activity level has been normal and she denies recent changes in medication with the exception of the recent addition of a calcium channel mary (Cardizem). She was also told yesterday that she has stage IV lung cancer but has not started any therapy or other treatment for her newly diagnosed state. In the emergency room she was found to be bradycardic as well as hyperkalemic and hypocalcemic. These electrolytes were corrected in part during her ER stay which also seem to improve her cardiac rhythm. Overall she was judged to be significantly more medically stable and she was subsequently admitted hospital for further evaluation and treatment. Hospital Course Hospital Course: (1) Acute encephalopathy Likely metabolic/underlying infectious process/underlying metastatic malignancy. 08/01/2018 chest x-ray showed mild pulmonary edema. CBC with leukocytosis, no bandemia Repeat ABG on 08/02/2018 PO2 of 81.3. O2 sat of 96% UA negative except for trace leukocyte esterase. Started on ceftriaxone, blood cultures, Lasix. Avoid benzos and anticholinergics . On the day of discharge encephalopathy had much improved patient was alert oriented x3. (2) Acute hypoxemic respiratory failure Improved. Likely due to volume overload or early developing pneumonia. Start on empiric IV antibiotics ,IV Lasix, Strict in and out. (3) Lung cancer After discussion with Dr. Mcnamara her oncologist patient and family opted for home hospice care. Please refer to oncologist note. (4) Hypocalcemia Improved. (5) Atrial fibrillation Rate controlled. Continue Cardizem and beta-blockers. Monitor and correct electrolyte abnormalities. (6) Chronic kidney disease (CKD) Stage III nonoliguric. Baseline creatinine 1.8-2. Creatinine is stable. Monitor electrolytes and volume status. Correct electrolytes as needed. (7) Hyperkalemia Elevated even though she was on Veltassa, renal diet. Continued hyperkalemia protocol. Continue monitor worker. Nephrology was consulted for possible hemodialysis however as per nephrology note patient was not a candidate for hemodialysis. (8) Hypomagnesemia Resolved. Continue daily p.o. magnesium replacement. Physical Exam Vital Signs: Temp Pulse Resp BP Pulse Ox 97.6 F 84 16 121/68 95 08/03/18 08:03 08/03/18 14:00 08/03/18 09:34 08/03/18 08:03 08/03/18 09:34 Intake & Output 08/04/18 08/05/18 08/06/18 06:59 06:59 06:59 Intake Total 150 Output Total 100 Balance 50 General appearance: PRESENT: no acute distress, well-developed, well-nourished Head exam: PRESENT: atraumatic, normocephalic Respiratory exam: PRESENT: clear to auscultation anita. ABSENT: rales, rhonchi, wheezes Cardiovascular exam: PRESENT: RRR. ABSENT: diastolic murmur, rubs, systolic murmur GI/Abdominal exam: PRESENT: normal bowel sounds, soft. ABSENT: distended, guarding, mass, organolmegaly, rebound, tenderness Neurological exam: PRESENT: alert, awake, oriented to person, oriented to place, oriented to time, oriented to situation, CN II-XII grossly intact. ABSENT: motor sensory deficit Results Laboratory Results: 08/03/18 05:44 08/03/18 05:44 07/31/18 11:08 Blood Blood Culture - Final NO GROWTH IN 5 DAYS 07/31/18 10:57 Blood Blood Culture - Final NO GROWTH IN 5 DAYS 07/28/18 07/28/18 18:58 18:58 Creatine Kinase 49 CK-MB (CK-2) 0.99 Troponin I < 0.012 NT-Pro-B Natriuret Pep 9130 H Impressions: Head CT 08/01/18 00:00 IMPRESSION: No acute intracranial changes. Age-appropriate white matter disease. Air-fluid level sphenoid sinus from sinusitis EVIDENCE OF ACUTE STROKE: NO. 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
== END 2018-08-03 17:52 | disposition hospice, home (50) | DRG 70 ==
LOC: ER 17:17 → EH 07-29 00:11 → 5 07-29 02:49 → 3S 07-30 21:25
PROVIDERS: ADMIT Emergency Medicine; ATTEND Emergency Medicine
DX: G93.41 Metabolic encephalopathy (principal); J96.01 Acute respiratory failure with hypoxia; C34.31 Malignant neoplasm of lower lobe, right bronchus or lung; C34.12 Malignant neoplasm of upper lobe, left bronchus or lung; N17.9 Acute kidney failure, unspecified; R29.0 Tetany; I50.32 Chronic diastolic (congestive) heart failure; I13.0 Hypertensive heart and chronic kidney disease with heart failure and stage 1 through stage 4 chronic kidney disease, or unspecified chronic kidney disease; E87.5 Hyperkalemia; E83.42 Hypomagnesemia; E83.51 Hypocalcemia; I48.91 Unspecified atrial fibrillation; N18.3 Chronic kidney disease, stage 3 (moderate); R00.1 Bradycardia, unspecified; M06.9 Rheumatoid arthritis, unspecified; I25.10 Atherosclerotic heart disease of native coronary artery without angina pectoris; E78.5 Hyperlipidemia, unspecified; J44.9 Chronic obstructive pulmonary disease, unspecified
CPT/HCPCS: 36415; 36600; 70450; 71045; 71046; 80048; 80053; 80061; 81001; 82140; 82306; 82330; 82550; 82553; 82803; 83735; 83880; 83970; 84100; 84439; 84443; 84481; 84484; 85025; 85027; 87040; 93005; 93010; 94640; 96374; 96375; 99285; J0610; J0696; J1610; J1644; J1815; J1940; J2405; J3475; J3490; J7030; J7050